=== PATIENT | male | born 1940 | race Caucasian/White ===

== ENCOUNTER 2017-04-16 18:08 | Outpatient (CLI) | payer MEDICARE | END 2017-04-16 18:09 | disposition home or self-care (01) | LOC: EMS 18:08 | PROVIDERS: ATTEND Surgery | DX: R31.9 Hematuria, unspecified (principal) | CPT/HCPCS: A0170; A0425; A0429 ==

== ENCOUNTER 2017-04-22 13:47 | Outpatient (CLI) | payer MEDICARE | END 2017-04-22 13:48 | disposition critical access hospital (66) | LOC: EMS 13:47 | PROVIDERS: ATTEND Surgery | DX: R06.02 Shortness of breath (principal); R42 Dizziness and giddiness; R53.83 Other fatigue; R19.7 Diarrhea, unspecified | CPT/HCPCS: A0425; A0429 ==

== ENCOUNTER 2017-04-22 14:54 | Inpatient (IN) | payer MEDICARE ==
--- NOTE | 2017-04-22 15:42 | ED Physician Documentation ---
PD HPI DYSPNEA - Stated complaint Stated Complaint: SOA - Chief complaint Chief Complaint: Resp - History obtained from History obtained from: Patient, Family - History of Present Illness Timing - onset: Other (feeling short of breath for the past few weeks.) Timing - onset during: Rest Timing - duration: Weeks Timing - details: Gradual onset Pain level max: 0 Pain level now: 0 Inciting event(s): Exercise (normally walks with a walker, but couldn't make it ajay the ramp with his walker today), Other (states has not been taking his medications) Improved by: Rest Worsened by: Exertion Associated symptoms: No: Fever, Cough, Hemoptysis, Wheezing, Chest pain / discomfort, Palpitations, Diaphoresis, Bilateral edema, Unilateral edema Similar symptoms before: Has not had sx before Recently seen: Not recently seen - Additional information Additional information: Recently moved from [place] to [place]. Has not been taking his home meds Review of Systems Ten Systems: 10 systems reviewed and negative Constitutional: denies: Fever, Chills Nose: denies: Rhinorrhea / runny nose, Congestion Throat: denies: Sore throat Cardiac: denies: Chest pain / pressure Respiratory: denies: Cough, Hemoptysis GI: denies: Abdominal Pain, Nausea, Vomiting, Diarrhea Skin: denies: Rash Musculoskeletal: denies: Neck pain, Back pain Neurologic: denies: Headache PD PAST MEDICAL HISTORY - Past Medical History Past Medical History: Yes Cardiovascular: Hypertension Endocrine/Autoimmune: Type 2 diabetes - Present Medications Home Medications: Ambulatory Orders Medication Instructions Recorded Confirmed Cyclobenzaprine [Flexeril] 1 tab PO .FREQ 04/22/17 04/22/17 Diclofenac Potassium [Cambia] 1 tab PO .Q 04/22/17 04/22/17 Escitalopram [Lexapro] 20 mg PO .FREQ 04/22/17 04/22/17 Finasteride 1 tab PO .Q 04/22/17 04/22/17 Lisinopril 1 tab PO .FREQ 04/22/17 04/22/17 Metformin HCl 1 tab PO .FREQ 04/22/17 04/22/17 Simvastatin 1 tab PO .FREQ 04/22/17 04/22/17 Terazosin [Hytrin] 2 mg PO .Q 04/22/17 04/22/17 diphenhydrAMINE [Benadryl] 1 tab PO .FREQ 04/22/17 04/22/17 - Allergies Allergies/Adverse Reactions: Allergies Allergy/AdvReac Type Severity Reaction Status Date / Time codeine Allergy Rash Verified 04/22/17 15:01 - Living Situation Living Situation: reports: With family Living Arrangement: reports: At home - Social History Does the pt smoke?: No Smoking Status: Never smoker Does the pt drink ETOH?: Yes Does the pt have substance abuse?: No - Family History Family history: reports: Non contributory PD ED PE NORMAL - Vitals Vital signs reviewed: Yes - General General: Alert and oriented X 3, No acute distress, Other (obese male) - HEENT HEENT: PERRL, Moist mucous membranes - Neck Neck: Supple, no meningeal sign - Cardiac Cardiac: RRR, Strong equal pulses - Respiratory Respiratory: No respiratory distress, Other (dimished BS bilaterally) - Abdomen Abdomen: Soft, Non tender, Other (protuberant abdomen) - Derm Derm: Warm and dry - Extremities Extremities: No calf tenderness / cord, Other (2+ B LE edema) - Neuro Neuro: Alert and oriented X 3 - Psych Psych: Normal mood, Normal affect Results - Vitals Vitals: Vital Signs - 24 hr 04/22/17 04/22/17 14:56 16:26 Temperature 36.0 C L Heart Rate 109 H 102 H Respiratory 20 18 Rate Blood Pressure 153/69 H 127/74 O2 Saturation 94 100 Oxygen O2 Source Room air - EKG (time done) 1511 Rate: Rate (enter#) (100) Rhythm: Sinus tachycardia Tamiment: Normal Intervals: Normal [place] QRS: Normal Ischemia: T wave inversion (V2-3) - Labs Labs: Laboratory Tests 04/22/17 04/22/17 04/22/17 17:10 17:10 17:10 WBC 11.6 H RBC 4.91 Hgb 15.0 Hct 45.6 MCV 92.9 MCH 30.6 MCHC 32.9 RDW 14.8 Plt Count 141 MPV 6.8 L Neut # 8.5 H Lymph # 2.0 [place] # 0.9 Eos # 0.1 Baso # 0.0 Absolute Nucleated RBC 0.01 Nucleated RBCs 0.1 PT INR APTT D-Dimer Sodium 137 Potassium 4.1 Chloride 101 Carbon Dioxide 28 Anion Gap 8.0 BUN 18 Creatinine 1.1 Estimated GFR (MDRD) 65 L Glucose 196 H Calcium 10.0 Total Bilirubin 0.8 AST 20 ALT 22 Alkaline Phosphatase 56 Total Creatine Kinase 30 Troponin I 0.31 B-Natriuretic Peptide Total Protein 7.3 Albumin 3.9 Globulin 3.4 Albumin/Globulin Ratio 1.1 Lipase 24 04/22/17 04/22/17 04/22/17 17:10 17:10 17:10 WBC RBC Hgb Hct MCV MCH MCHC RDW Plt Count MPV Neut # Lymph # [place] # Eos # Baso # Absolute Nucleated RBC Nucleated RBCs PT 13.5 H INR 1.2 APTT 34.0 H D-Dimer > 1050.0 H Sodium Potassium Chloride Carbon Dioxide Anion Gap BUN Creatinine Estimated GFR (MDRD) Glucose Calcium Total Bilirubin AST ALT Alkaline Phosphatase Total Creatine Kinase Troponin I B-Natriuretic Peptide 354 H Total Protein Albumin Globulin Albumin/Globulin Ratio Lipase - Rads (name of study) cxr Radiology: Prelim report reviewed, EMP read contemporaneously, See rad report ( Mild cardiomegaly. ) [place] Radiology: Prelim report reviewed, EMP read contemporaneously, See rad report ( extensive B PE with right heart strain) PD MEDICAL DECISION MAKING - ED course Complexity details: reviewed results, re-evaluated patient, considered differential, d/w patient, d/w family, d/w party plan sales consultant ([phone] - Dr. Flores ( hospitalist) who accepts.) ED course: Patient is a 76-year-old gentleman who has had increasingly difficult time caring for himself at home. He does use a walker at home, but has not been very mobile over the past few weeks. Also recently moved from [place]. Found to have a mildly elevated troponin as well as mildly elevated BNP. Concern raised for pulmonary embolus, therefore CT pulmonary angiogram was performed but shows extensive bilateral PEs with right heart strain. Started on a heparin drip. We will admit the patient for further evaluation and care. Discussed the case with the hospitalist who accepts. This document was made in part using voice recognition software. While efforts are made to proofread this document, sound alike and grammatical errors may occur. Departure - Departure Disposition: 66 [facility] DC/Xfer Clinical Impression: Pulmonary emboli Qualifiers: Pulmonary embolism type: other Chronicity: acute Acute cor pulmonale presence: with acute cor pulmonale Qualified Code(s): I26.09 - Other pulmonary embolism with acute cor pulmonale Condition: Good
--- NOTE | 2017-04-22 16:47 | XRAY Preliminary Report ---
Exam: XR Chest 1 View IMPRESSION: Mild cardiomegaly. [facility] SITE ID: [id number]
--- NOTE | 2017-04-22 16:52 | XRAY Report ---
EXAM: CHEST RADIOGRAPHY EXAM DATE: 04/22/2017 04:31 PM. CLINICAL HISTORY: Dyspnea. COMPARISON: None. TECHNIQUE: 1 view. FINDINGS: Lungs/Pleura: No focal opacities evident. No pleural effusion. No pneumothorax. Mediastinum: Mild cardiomegaly. No adenopathy. Other: Morbidly obese. IMPRESSION: Mild cardiomegaly. [facility] Referring Provider Line: [phone] SITE ID: [id number]
[2017-04-22 17:37] LABS: BASOPHILS % (AUTO) 0.4 %; EOSINOPHILS # (AUTO) 0.1 10^3/uL (0.0-0.7); EOSINOPHILS % (AUTO) 0.8 %; HCT - HEMATOCRIT 45.6 % (42.0-52.0); LYMPHOCYTES % (AUTO) 17.1 %; MEAN CORPUSCULAR HEMOGLOBIN 30.6 pg (27.0-31.0); MEAN CORPUSCULAR HGB CONC 32.9 g/dL (32.0-36.0); MEAN CORPUSCULAR VOLUME 92.9 fL (80.0-94.0); MEAN PLATELET VOLUME 6.8 fL (7.4-11.4); MONOCYTES # (AUTO) 0.9 10^3/uL (0.0-1.0); MONOCYTES % (AUTO) 8.1 %; NEUTROPHILS # (AUTO) 8.5 10^3/uL (1.5-6.6); NEUTROPHILS % (AUTO) 73.6 %; NUCLEATED RED BLOOD CELLS AUTO 0.1 /100WBC; RED BLOOD COUNT 4.91 10^6/uL (4.70-6.10); RED CELL DISTRIBUTION WIDTH 14.8 % (12.0-15.0); UNCORRECTED WHITE BLOOD COUNT 11.6 x10^3/uL; WHITE BLOOD COUNT 11.6 x10^3/uL (4.8-10.8)
[2017-04-22 17:47] LABS: ALBUMIN/GLOBULIN RATIO 1.1 (1.0-2.2); BILIRUBIN,TOTAL 0.8 mg/dL (0.2-1.0); CREATININE 1.1 mg/dL (0.6-1.2); POTASSIUM 4.1 mmol/L (3.5-5.0); TOTAL PROTEIN 7.3 g/dL (6.7-8.2)
[2017-04-22] MEDS ORDERED: IOPAMIDOL-300 100 ML VIAL IVP ONE (18:49)
[2017-04-22] MEDS ORDERED: HEPARIN 5,000 UNIT/ML VIAL IVP STA (18:57)
[2017-04-22] MEDS ORDERED: HEPARIN 25,000 UNITS/500 ML 500 ML IV STA (18:57)
[2017-04-22] MEDS ORDERED: HEPARIN 5,000 UNIT/ML VIAL ONE (19:04)
[2017-04-22] MEDS ORDERED: HEPARIN 25,000 UNITS/500 ML 500 ML IV ONE (19:05)
[2017-04-22 19:07] LABS: INR 1.2 (0.8-1.2); PT - PROTHROMBIN TIME 13.5 secs (9.9-12.6)
--- NOTE | 2017-04-22 19:20 | CT Preliminary Report ---
Exam: CT Chest Angio (PE) IMPRESSION: Extensive pulmonary emboli with elevated right cardiac pressures. [facility] The above critical findings were discussed with jenna Melendez by Dr. Edita Cervantes at 19:18 h rs on 04/22/17. SITE ID: [id number]
[2017-04-22] MEDS ORDERED: ZOLPIDEM 5 MG TABLET PO PRN (19:23)
[2017-04-22] MEDS ORDERED: SODIUM CHLORIDE FLUSH 0.9% 10 ML SYRINGE IVP PRN (19:23)
[2017-04-22] MEDS ORDERED: PROCHLORPERAZINE 10 MG/2 ML VIAL IVP PRN (19:23)
[2017-04-22] MEDS ORDERED: ONDANSETRON 4 MG/2 ML VIAL IVP PRN (19:23)
--- NOTE | 2017-04-22 19:36 | CT Report ---
EXAM: CT ANGIOGRAM CHEST EXAM DATE: 04/22/2017 06:50 p.m. CLINICAL HISTORY: Dyspnea. COMPARISON: None. TECHNIQUE: Routine helical imaging was performed through the chest in the pulmonary arterial phase. I V Contrast: 100 mL Isovue-300. Reconstructions: Coronal 3-D MIP reconstructions.Sagittal and coronal. In accordance with CT protocol optimization, one or more of the following dose reduction techniques w ere utilized for this exam: automated exposure control, adjustment of mA and/or KV based on patient s ize, or use of iterative reconstructive technique. FINDINGS: Pulmonary Arteries: Diagnostic quality: Adequate through the segmental arteries. Multiple occlusive and nonocclusive loba r, segmental and subsegmental filling defects throughout the pulmonary arterial systems bilaterally. Small left saddle embolus. Hcatg-vy-sfcy ventricular ratio is 1.0. Some flattening of the interventricular septum. Small amount of reflux into the inferior vena cava. Lungs/Pleura: No consolidation, nodules, or edema. No effusions or pneumothorax. Mediastinum: Normal. No cardiac enlargement or adenopathy. Thoracic Aorta: Unremarkable. Upper Abdomen: Unremarkable. Other: None. IMPRESSION: Extensive pulmonary emboli with elevated right cardiac pressures. [facility] The above critical findings were discussed with provider Dr. Melendez by Dr. Edita Cervantes at 19:18 hrs on 04/22/17. Referring Provider Line: [phone] SITE ID: [id number]
[2017-04-22 20:02] LABS: HEMOGLOBIN A1C 0.9 g/dL
[2017-04-22] MEDS: ENOXAPARIN 80 MG/0.8 ML SYRINGE SUBQ SCH (21:34)
[2017-04-22] MEDS: SODIUM CHLORIDE 0.9% 1,000 ML IV SCH (21:34)
[2017-04-22] MEDS: INSULIN ASPART 300 UNIT/3 ML PEN SUBQ SCH (21:34)
[2017-04-22] MEDS: SODIUM CHLORIDE FLUSH 0.9% 10 ML SYRINGE IVP SCH (21:35)
--- NOTE | 2017-04-22 21:44 | HISTORY & PHYSICAL EXAMINATION ---
Chief Complaint - Chief Complaint Chief Complaint: shortness of air, dizziness and fatigue History of Present Illness - Admitted From Admitted From:: emergency department - History Obtained From Records Reviewed: yes History obtained from: patient Exam Limitations: None - History of Present Illness HPI Comment/Other: Patient is a very pleasant 76-year-old gentleman with a past medical history significant for morbid obesity, diabetes, hypertension, hyperlipidemia, struct of sleep apnea on CPAP at night, BPH and history of skin cancer who presented to the emergency department with a chief complaint of fatigue, shortness of air with exertion and dizziness. The patient states that he just moved up to [facility] 3-1/2 weeks ago from [place]. He moved up here with his partner to take care of his partners mother. The patient states that they drove 1200 miles and slept in the car over the span of 3 days. The patient states that over the last several days he has been feeling more tired and sleepy throughout most of the day. He states that the last few days he's become increasingly short of air when walking around the house. He also states that when he is walking he feels dizzy and continues to have fatigue. The patient denied any chest pain however on examination when he was having to take a deep breath he did admit to some pain with deep breathing. The patient otherwise denies any fevers, cough, chest pain with exertion, nausea, vomiting, diarrhea, or any focal neurologic deficits. The patient states that since moving to [facility] he has been living a very sedentary lifestyle. He states that he has just been too fatigued and has had too much weakness to move around very much. He states that most of the day he's just been sitting in his chair. The patient states that he uses a walker and cane at home to get around. He states that his partner left to get some more stuff from [place] just a few days ago and that he is currently alone with his partner's mother. He states that his sisters who live in [facility] have been talking to him about possibly going to an assisted living. On presentation to the emergency department the patient was tachycardic with heart rate of 109 and was tachypneic at rest with a resting O2 sat of 94%. The patient became quite fatigued and short of breath with any kind of exertion even sitting up in bed. The patient's lab work was unremarkable aside from a d- dimer of greater than 1050. Given the patient's presentation with worsening shortness of breath over the last 2 days, tachycardia, elevated d-dimer and recent history of long trip and sedentary lifestyle the patient underwent a CT angiogram of the thorax. The CT revealed extensive pulmonary emboli with elevated right cardiac pressures. Given the extent of the pulmonary emboli and the fact that the patient had such a decrease in his exercise tolerance he was admitted to the hospital for treatment of PE. In the emergency room the patient was started on a heparin drip. Review of Systems - Constitutional Constitutional: reports: Fatigue, Weakness. denies: Fever, Chills, Malaise, Poor appetite, Diaphoresis, Night sweats, Weight gain, Weight loss - Eyes Eyes: denies: Pain, Irritation, Amaurosis, Blurred vision, Spots in vision, Field loss, Vision loss, Dipolpia - Ears, Nose & Throat Ears, Nose & Throat: denies: Ear pain, Hearing loss, Hearing aids, Tinnitus, Vertigo, Nasal pain, Nasal discharge, Nosebleeds, Nasal obstruction, Nasal congestion, Postnasal drainage, Sore throat, Hoarseness - Cardiovascular Cariovascular: reports: Lightheadedness, Exertional dyspnea, Decr. exercise tolerance. denies: Irregular heart rate, Palpitations, Chest pain, Edema, Syncope, Orthopnea - Respiratory Respiratory: reports: SOB with exertion, Pleuritic pain. denies: Cough, Sputum production, Wheezing, Hemoptysis, Orthopnea, SOB at rest - Gastrointestinal Gastrointestinal: denies: Abdominal pain, Abdominal distention, Constipation, Diarrhea, Change in bowel habits, Black stools, Bloody stools, Nausea, Vomiting , Clif blood emesis, Coffee grounds emesis, Poor appetite - Genitourinary Genitourinary: denies: Dysuria, Frequency, Urgency, Hematuria, Incontinence, Nocturia - Musculoskeletal Musculoskeletal: reports: Back pain. denies: Muscle pain, Muscle aches, Stiffness, Limited range of motion, Muscle weakness, Joint pain, Joint swelling - Integumentary Integumentary: reports: Lesions (abd wall, bilateral LE), Dryness (LEs). denies : Rash, Pruritis, Nail changes, Hair changes - Neurological Neurological: reports: General weakness, Dizziness. denies: Focal weakness, Headache, Numbness, Memory problems, Seizures, Slurred speech - Psychiatric Psychiatric: denies: Depression, Anxiety - Endocrine Endocrine: denies: Polyuria, Polydypsia, Polyphagia, Intolerance to cold, Intolerance to heat - Hematologic/Lymphatic Hematologic/Lymphatic: denies: Anemia, Lymphadenopathy, Bleeding tendencies History - Past Medical History Cardiovascular: reports: Hypertension, High cholesterol Respiratory: reports: None Neuro: reports: None Endocrine/Autoimmune: reports: Type 2 diabetes GI: reports: None : reports: Kidney stones, Other HEENT: reports: None Psych: reports: Panic attacks Musculoskeletal: reports: Osteoarthritis Derm: reports: None Other Past Medical History: 1. Diabetes. 2. Hypertension. 3. Hyperlipidemia. 4. Obstructive sleep apnea on CPAP. 5. Morbid obesity. 6. Skin cancer status post excision. 7. BPH - Past Surgical History General: reports: Appendectomy Derm: reports: Skin cancer surgery - Family & Social History Family History: Mother: (old age), Father: , Sister: Diabetes, Type 2, Brother: Diabetes, Type 2, Other family: Cancer (son of brain tumor ) Living arrangement: At home Living Situation: Other Social History Notes: The patient states these are originally from [place], [place]. He is but is currently in a relationship. He and his partner have been living in [place] and just moved back to [facility] 3 -1/2 weeks ago. The patient had been living in [place] since June 2003 he has moved back to help his partner take care of the partners elderly mother with dementia. He has 4 dogs and one cat who lives with them in the house. The patient had 2 children his son unfortunately of a brain tumor. The patient is retired [employer] and worked for [employer] for many years before he retired. The patient used to smoke one pack a day for 20 years but has quit many years ago. The patient does enjoy a couple of cocktails a night. He denies any illicit drug use. - Substance History Use: Uses substance without health or social issues: NONE Abuse: Recurrent use of substance despite neg consequences: NONE Dependence: Experiences withdrawal or developed tolerances: NONE - POLST Patient has POLST: No POLST Status: Full Code Meds/Allgy - Home Medications Home Medications: Ambulatory Orders Medication Instructions Recorded Confirmed Cyclobenzaprine [Flexeril] 1 tab PO .FREQ 04/22/17 04/22/17 Diclofenac Potassium [Cambia] 1 tab PO .FREQ 04/22/17 04/22/17 Escitalopram [Lexapro] 20 mg PO .FREQ 04/22/17 04/22/17 Finasteride 1 tab PO .FREQ 04/22/17 04/22/17 Lisinopril 1 tab PO .FREQ 04/22/17 04/22/17 Metformin HCl 1 tab PO .FREQ 04/22/17 04/22/17 Simvastatin 1 tab PO .FREQ 04/22/17 04/22/17 Terazosin [Hytrin] 2 mg PO .FREQ 04/22/17 04/22/17 diphenhydrAMINE [Benadryl] 1 tab PO .FREQ 04/22/17 04/22/17 - Allergies Allergies/Adverse Reactions: Allergies Allergy/AdvReac Type Severity Reaction Status Date / Time codeine Allergy Rash Verified 04/22/17 15:01 Exam - Vital Signs Reviewed Vital Signs: Yes - Physical Exam General Appearance: positive: Alert, Mild distress, Other (Morbidly obese complaining of back pain and get short of breath with exertion even in the bed.) Eyes Bilateral: positive: Normal inspection, PERRL, EOMI, No lid inflammation, Conjunctivae nml, No scleral icterus ENT: positive: ENT inspection nml, Pharynx nml, No signs of dehydration. negative: Purulent nasal drainage, Pharyngeal erythema, Oral lesions Neck: positive: Nml inspection, Thyroid nml, No JVD, Trachea midline. negative : Thyromegaly, Lymphadenopathy (R), Lymphadenopathy (L) Respiratory: positive: Chest non-tender, Rhonchi (bilateral), Other (Non labored at rest but gets tachypnic with minimal exertion) Cardiovascular: positive: No murmur, No gallop, Tachycardia Peripheral Pulses: positive: 2+ Abdomen: positive: Non-tender, No organomegaly, Nml bowel sounds, Other (Large abdomen, lesion on abdominal wall from skin excision). negative: Guarding, Rebound Back: positive: Nml inspection. negative: CVA tenderness (R), CVA tenderness (L ) Skin: positive: Dry, Other (Scarring on abd wall from skin excision. Bilateral lower extremity hyperpigementation from chronic venous stasis) Extremities: positive: Non-tender, Full ROM, Pedal edema Neurologic/Psychiatric: positive: Oriented x3, CN's nml (2-12), Motor nml, Sensation nml, Mood/affect nml Conclusion/Plan - Problem List (1) Acute saddle pulmonary embolism Conclusion/Plan: The patient presented with shortness of air with exertion for the past 2 days, dizziness with ambulation and fatigue. On presentation the patient had tachycardia, tachypnea with any exertion and an elevated d-dimer. Patient had been on a recent trip from [place] to [facility] 1200 miles in a car with minimal stops or ambulating. He is also very sedentary at home. CT angiogram of the thorax revealed extensive pulmonary emboli in lobar, segmental and subsegmental arteries bilaterally. With a small left sagittal embolus. There was also evidence of right heart strain on CT. Plan: Patient initially started on heparin drip in the ER Will stop heparin drip and start on Lovenox 1 mg per kilogram subcutaneous twice a day and Coumadin We will get echocardiogram in the morning Oxygen as needed O2 walk test Monitor on telemetry Qualifiers: Acute cor pulmonale presence: without acute cor pulmonale Qualified Code(s) : I26.92 - Saddle embolus of pulmonary artery without acute cor pulmonale (2) Elevated troponin Conclusion/Plan: Patient's troponin was mildly elevated at 0.31 this is likely due to strain on the heart from extensive pulmonary embolism with left saddle embolism and right heart strain. EKG shows S1Q3T3 consistent with PE but no IRIS Will monitor patient on tele Echo in the morning (3) Diabetes Conclusion/Plan: Patient on metformin at home with hemoglobin A1c of 7.3. On presentation patient's hyperglycemic with glucose of [address] on sliding scale insulin while hospitalized Diabetic diet Glucose checks a.c. and at bedtime Qualifiers: Diabetes mellitus type: type 2 (4) Hypertension Conclusion/Plan: blood pressure mildly elevated on presentation continue home meds Monitor blood pressure Qualifiers: Hypertension type: essential hypertension Qualified Code(s): I10 - Essential (primary) hypertension (5) SARMAD on CPAP Conclusion/Plan: on CPAP at home Patient did not bring CPAP machine Patient will get daughter to bring CPAP tomorrow - Lab Results Lab results reviewed: Yes Fish Bones: 04/22/17 17:10 04/22/17 17:10 - Diagnostic Imaging Results Diagnostic Imaging Results: positive: Final report reviewed Diagnostic Imaging Results Comments: CT angiogram chest Impression: Multiple occlusive and nonocclusive lobar, segmental and subsegmental filling defects throughout the pulmonary arterial systems bilaterally. Small left sagittal embolus. Right to left ventricular ratio is 1.0. Some flattening of the intraventricular septum. Small amount of reflux into the inferior vena cava. - EKG Results EKG Interpreted Independently: Yes EKG Comparison: Other (S1 Q3 T3) Issues/Core Measures - Anticipated LOS Anticipated Stay Length: 2 or more midnights - DVT/VTE - Prophylaxis Not Ordered - Medical Reason: Contraindicated (Presented with PE could have DVTs )
[2017-04-22] MEDS: ACETAMINOPHEN 325 MG TABLET PO PRN (23:45)
[2017-04-23 02:09] LABS: BILIRUBIN,URINE NEGATIVE (NEGATIVE); PH,URINE 5.5 PH (5.0-7.5)
[2017-04-23 02:11] LABS: UA w/ MICROSCOPIC CHARGE YES
[2017-04-23 02:15] LABS: WBC,URINE 0-3 /HPF (0-3)
[2017-04-23 02:16] LABS: UR CULTURE IF IND NOT INDICATED
[2017-04-23 05:52] LABS: BASOPHILS # (AUTO) 0.1 10^3/uL (0.0-0.1); BASOPHILS % (AUTO) 0.7 %; EOSINOPHILS # (AUTO) 0.2 10^3/uL (0.0-0.7); EOSINOPHILS % (AUTO) 2.3 %; HCT - HEMATOCRIT 41.7 % (42.0-52.0); HGB - HEMOGLOBIN 14.1 g/dL (14.0-18.0); LYMPHOCYTES # (AUTO) 2.5 10^3/uL (1.5-3.5); LYMPHOCYTES % (AUTO) 27.3 %; MEAN CORPUSCULAR HEMOGLOBIN 31.2 pg (27.0-31.0); MEAN CORPUSCULAR HGB CONC 33.7 g/dL (32.0-36.0); MEAN CORPUSCULAR VOLUME 92.7 fL (80.0-94.0); MEAN PLATELET VOLUME 6.7 fL (7.4-11.4); MONOCYTES # (AUTO) 0.8 10^3/uL (0.0-1.0); MONOCYTES % (AUTO) 9.1 %; NEUTROPHILS # (AUTO) 5.6 10^3/uL (1.5-6.6); NEUTROPHILS % (AUTO) 60.6 %; RED CELL DISTRIBUTION WIDTH 15.1 % (12.0-15.0); UNCORRECTED WHITE BLOOD COUNT 9.2 x10^3/uL; WHITE BLOOD COUNT 9.2 x10^3/uL (4.8-10.8)
[2017-04-23 05:55] LABS: INR 1.2 (0.8-1.2); PT - PROTHROMBIN TIME 13.6 secs (9.9-12.6)
[2017-04-23 06:03] LABS: ALBUMIN/GLOBULIN RATIO 1.2 (1.0-2.2); BILIRUBIN,TOTAL 0.7 mg/dL (0.2-1.0); CALCIUM 9.4 mg/dL (8.5-10.3); MAGNESIUM 1.9 mg/dL (1.7-2.8); PHOSPHORUS 3.5 mg/dL (2.5-4.6); POTASSIUM 3.9 mmol/L (3.5-5.0); TOTAL PROTEIN 6.5 g/dL (6.7-8.2)
[2017-04-23] MEDS: SODIUM CHLORIDE FLUSH 0.9% 10 ML SYRINGE IVP SCH ×3 (06:08→21:30)
[2017-04-23] MEDS: PANTOPRAZOLE 40 MG TABLET PO SCH (06:08)
[2017-04-23] MEDS: ESCITALOPRAM 10 MG TABLET PO SCH (08:55)
[2017-04-23] MEDS: LISINOPRIL 20 MG TABLET PO SCH (08:55)
[2017-04-23] MEDS: FINASTERIDE 5 MG TABLET PO SCH (08:55)
[2017-04-23] MEDS: INSULIN ASPART 300 UNIT/3 ML PEN SUBQ SCH ×4 (08:55→21:29)
[2017-04-23] MEDS: ATORVASTATIN 10 MG TABLET PO SCH (08:55)
--- NOTE | 2017-04-23 08:58 | PROVIDER PROGRESS NOTE ---
Assessment/Plan - Problem List (1) Acute saddle pulmonary embolism Qualifiers: Acute cor pulmonale presence: without acute cor pulmonale Qualified Code(s) : I26.92 - Saddle embolus of pulmonary artery without acute cor pulmonale Assessment/Plan: # Acute Pulmonary Embolism, provoked PE due to long car ride and sedentary. presented with sob, feeling dizzy and fatigue. Ct with bilateral PE and evidence of right heart strain, HD stable. Pt started briefly on heparin in the ER, switched to lovenox on admit. Plan for oral AC for at least 6 mo. Will ask case assistant to determine if pts insurance will cover a NOAC or start coumadin today. Explained to pt the risk and benefits of AC tx and need for close monitoring of coumadin rx. He agrees with plan. Echo today and repeat INR in am. Will need to arrange fu with PCP prior to dc. # Elevated trop suspect this is due to right heart strain from PE. pt has no chest pain. # Diabetes type 2 unknown complications hold metformin due to CT with contrast. Continue SSI and diabetic diet. # SARMAD continue CPAP # Htn continue home medication (2) Hypertension Qualifiers: Hypertension type: essential hypertension Qualified Code(s): I10 - Essential (primary) hypertension - Current Meds Current Meds: Current Medications Generic Name Dose Route Start Last Admin Trade Name Freq PRN Reason Stop Dose Admin Acetaminophen 650 mg 04/22/17 19:23 04/22/17 23:45 Tylenol PO 650 mg Q4HR PRN Administration Pain 1 to 4 Enoxaparin Sodium 160 mg 04/22/17 21:00 04/22/17 21:34 Lovenox SUBQ 160 mg BID ANNITA Administration Sodium Chloride 1,000 mls @ 100 mls/hr 04/22/17 20:00 04/22/17 21:34 Normal Saline 0.9% IV 100 mls/hr .Q10H ANNITA Administration Insulin Aspart 1 - 5 unit 04/22/17 21:00 04/22/17 21:34 Novolog SUBQ 2 unit 0800,1200,1700,2100 ANNITA Administration Protocol Pantoprazole Sodium 40 mg 04/23/17 07:00 04/23/17 06:08 Protonix PO 40 mg QDAC ANNITA Administration Sodium Chloride 10 ml 04/22/17 22:00 04/23/17 06:08 Normal Saline Flush 0.9% IVP 10 ml Q8HR ANNITA Administration Zolpidem Tartrate 5 mg 04/22/17 19:23 04/22/17 23:45 Ambien PO 5 mg QPM PRN Administration Insomnia - Lab Result Lab results reviewed: Yes Fish Bone Diagrams: 04/23/17 05:40 04/23/17 05:40 Subjective - Subjective Patient Reports: Other (pt continues to have sob, was incontinent of stool this am, states he is intermittently incontinent at home. Lives with his male partner and his mother. States his partner is able to help him at home. Appetite good, no n/v.) Objective Vital Signs: Vital Signs - 24 hr 04/22/17 04/22/17 04/23/17 20:50 23:41 05:20 Temperature 36.3 C L 36.7 C 36.6 C Heart Rate [ 102 H 96 90 Brachial] Respiratory 18 22 18 Rate Blood Pressure 147/91 H 137/91 H [Left Brachial artery] Blood Pressure 136/93 H [Left Radial artery] Blood Pressure 140/89 H [Right Brachial artery] O2 Saturation 98 97 97 04/23/17 04/23/17 06:01 08:29 Temperature 36.1 C L 37.1 C Heart Rate [ 88 93 Brachial] Respiratory 20 18 Rate Blood Pressure [Left Brachial artery] Blood Pressure 134/96 H [Left Radial artery] Blood Pressure 134/91 H [Right Brachial artery] O2 Saturation 97 95 Oxygen O2 Source Nasal cannula I&O (Last 24 Hrs): Intake and Output Totals x24h 04/21/17 04/22/17 04/23/17 23:59 23:59 23:59 Intake Total 260 1354 Output Total 100 Balance 260 1254 General: Other (Gen - obese male, NAD laying in bed CV Tachy regular, no mrg Lungs CTA b non labored, no wheeze or rhonchi Abd obese, sntnd Ext non tender , no edema) - Results Results: Laboratory Results WBC 9.2 x10^3/uL (4.8-10.8) 04/23/17 05:40 RBC 4.50 10^6/uL (4.70-6.10) L 04/23/17 05:40 Hgb 14.1 g/dL (14.0-18.0) 04/23/17 05:40 Hct 41.7 % (42.0-52.0) L 04/23/17 05:40 MCV 92.7 fL (80.0-94.0) 04/23/17 05:40 MCH 31.2 pg (27.0-31.0) H 04/23/17 05:40 MCHC 33.7 g/dL (32.0-36.0) 04/23/17 05:40 RDW 15.1 % (12.0-15.0) H 04/23/17 05:40 Plt Count 126 10^3/uL (130-450) L 04/23/17 05:40 MPV 6.7 fL (7.4-11.4) L 04/23/17 05:40 Neut # 5.6 10^3/uL (1.5-6.6) 04/23/17 05:40 Lymph # 2.5 10^3/uL (1.5-3.5) 04/23/17 05:40 [place] # 0.8 10^3/uL (0.0-1.0) 04/23/17 05:40 Eos # 0.2 10^3/uL (0.0-0.7) 04/23/17 05:40 Baso # 0.1 10^3/uL (0.0-0.1) 04/23/17 05:40 Absolute Nucleated RBC 0.00 x10^3/uL 04/23/17 05:40 Nucleated RBCs 0.0 /100WBC 04/23/17 05:40 PT 13.6 secs (9.9-12.6) H 04/23/17 05:40 INR 1.2 (0.8-1.2) 04/23/17 05:40 APTT 34.0 secs (24.9-33.3) H 04/22/17 17:10 D-Dimer > 1050.0 ng/mL (200.0-255.0) H 04/22/17 17:10 Sodium 137 mmol/L (135-145) 04/23/17 05:40 Potassium 3.9 mmol/L (3.5-5.0) 04/23/17 05:40 Chloride 104 mmol/L (101-111) 04/23/17 05:40 Carbon Dioxide 25 mmol/L (21-32) 04/23/17 05:40 Anion Gap 8.0 (6-13) 04/23/17 05:40 BUN 19 mg/dL (6-20) 04/23/17 05:40 Creatinine 1.0 mg/dL (0.6-1.2) 04/23/17 05:40 Estimated GFR (MDRD) 73 (>89) L 04/23/17 05:40 Glucose 163 mg/dL (70-100) H 04/23/17 05:40 Glycated Hemoglobin 7.3 % (4.6-6.2) H 04/22/17 17:10 Estim Average Glucose 163 (70-100) H 04/22/17 17:10 Calcium 9.4 mg/dL (8.5-10.3) 04/23/17 05:40 Phosphorus 3.5 mg/dL (2.5-4.6) 04/23/17 05:40 Magnesium 1.9 mg/dL (1.7-2.8) 04/23/17 05:40 Total Bilirubin 0.7 mg/dL (0.2-1.0) 04/23/17 05:40 AST 16 IU/L (10-42) 04/23/17 05:40 ALT 18 IU/L (10-60) 04/23/17 05:40 Alkaline Phosphatase 51 IU/L (42-121) 04/23/17 05:40 Total Creatine Kinase 30 IU/L (22-269) 04/22/17 17:10 Troponin I 0.31 ng/mL (<0.49) 04/22/17 17:10 B-Natriuretic Peptide 354 pg/mL (5-100) H 04/22/17 17:10 Total Protein 6.5 g/dL (6.7-8.2) L 04/23/17 05:40 Albumin 3.6 g/dL (3.2-5.5) 04/23/17 05:40 Globulin 2.9 g/dL (2.1-4.2) 04/23/17 05:40 Albumin/Globulin Ratio 1.2 (1.0-2.2) 04/23/17 05:40 Lipase 24 U/L (22-51) 04/22/17 17:10 Urine Color YELLOW 04/23/17 01:26 Urine Clarity CLEAR (CLEAR) 04/23/17 01:26 Urine pH 5.5 PH (5.0-7.5) 04/23/17 01:26 Ur Specific [place] 1.020 (1.002-1.030) 04/23/17 01:26 Urine Protein 100 mg/dL (NEGATIVE) H 04/23/17 01:26 Urine Glucose (UA) NEGATIVE mg/dL (NEGATIVE) 04/23/17 01:26 Urine Ketones TRACE mg/dL (NEGATIVE) 04/23/17 01:26 Urine Occult Blood MODERATE (NEGATIVE) H 04/23/17 01:26 Urine Nitrite NEGATIVE (NEGATIVE) 04/23/17 01:26 Urine Bilirubin NEGATIVE (NEGATIVE) 04/23/17 01:26 Urine Urobilinogen 0.2 (NORMAL) E.U./dL (NORMAL) 04/23/17 01:26 Ur Leukocyte Esterase NEGATIVE (NEGATIVE) 04/23/17 01:26 Urine RBC 6-10 /HPF (0-5) H 04/23/17 01:26 Urine WBC 0-3 /HPF (0-3) 04/23/17 01:26 Ur Squamous Epith Cells MOD Squamous (<= Few) H 04/23/17 01:26 Urine Bacteria Few /HPF (None Seen) 04/23/17 01:26 Urine Casts 0-2 Hyaline Casts /LPF 04/23/17 01:26 Urine Mucus Few Strands 04/23/17 01:26 Ur Microscopic Review INDICATED 04/23/17 01:26 Urine Culture Comments NOT INDICATED 04/23/17 01:26
[2017-04-23] MEDS ORDERED: NON FORMULARY MED (Simvastatin [Simvastatin] 20 MG) PO SCH (09:00)
[2017-04-23] MEDS ORDERED: metFORMIN 850 MG TABLET PO SCH (09:00)
[2017-04-23] MEDS: SODIUM CHLORIDE 0.9% 1,000 ML IV SCH ×2 (09:07→17:10)
[2017-04-23] MEDS: POLYETHYLENE GLYCOL 3350 17 GM PACKET PO SCH (09:07)
[2017-04-23] MEDS: ENOXAPARIN 80 MG/0.8 ML SYRINGE SUBQ SCH (09:24)
[2017-04-23] MEDS: ACETAMINOPHEN 325 MG TABLET PO PRN ×2 (10:08→19:34)
[2017-04-23] MEDS: CYCLOBENZAPRINE 10 MG TABLET PO PRN ×2 (10:08→19:34)
[2017-04-23] MEDS ORDERED: WARFARIN 5 MG TABLET PO SCH (14:00)
[2017-04-23] MEDS: RIVAROXABAN 15 MG TABLET PO SCH (17:03)
[2017-04-23] MEDS: TERAZOSIN 1 MG CAPSULE PO SCH (21:29)
[2017-04-23] MEDS: TERAZOSIN 5 MG CAPSULE PO SCH (21:29)
[2017-04-24] MEDS: ACETAMINOPHEN 325 MG TABLET PO PRN ×2 (00:55→09:09)
[2017-04-24] MEDS: SODIUM CHLORIDE 0.9% 1,000 ML IV SCH ×2 (02:40→12:34)
[2017-04-24] MEDS: PANTOPRAZOLE 40 MG TABLET PO SCH (06:05)
[2017-04-24] MEDS: SODIUM CHLORIDE FLUSH 0.9% 10 ML SYRINGE IVP SCH ×3 (06:05→21:03)
[2017-04-24 06:18] LABS: BASOPHILS % (AUTO) 0.5 %; EOSINOPHILS # (AUTO) 0.2 10^3/uL (0.0-0.7); EOSINOPHILS % (AUTO) 2.5 %; HCT - HEMATOCRIT 38.7 % (42.0-52.0); HGB - HEMOGLOBIN 12.8 g/dL (14.0-18.0); LYMPHOCYTES # (AUTO) 1.9 10^3/uL (1.5-3.5); LYMPHOCYTES % (AUTO) 28.2 %; MEAN CORPUSCULAR HEMOGLOBIN 30.8 pg (27.0-31.0); MEAN CORPUSCULAR HGB CONC 33.1 g/dL (32.0-36.0); MEAN CORPUSCULAR VOLUME 93.1 fL (80.0-94.0); MONOCYTES # (AUTO) 0.6 10^3/uL (0.0-1.0); MONOCYTES % (AUTO) 8.8 %; NEUTROPHILS # (AUTO) 4.1 10^3/uL (1.5-6.6); RED BLOOD COUNT 4.16 10^6/uL (4.70-6.10); UNCORRECTED WHITE BLOOD COUNT 6.8 x10^3/uL; WHITE BLOOD COUNT 6.8 x10^3/uL (4.8-10.8)
[2017-04-24 06:20] LABS: INR 1.5 (0.8-1.2); PT - PROTHROMBIN TIME 17.1 secs (9.9-12.6)
[2017-04-24 06:33] LABS: ALBUMIN/GLOBULIN RATIO 1.2 (1.0-2.2); BILIRUBIN,TOTAL 0.4 mg/dL (0.2-1.0); CALCIUM 9.2 mg/dL (8.5-10.3); CREATININE 1.1 mg/dL (0.6-1.2); MAGNESIUM 1.9 mg/dL (1.7-2.8); PHOSPHORUS 3.5 mg/dL (2.5-4.6); POTASSIUM 4.1 mmol/L (3.5-5.0); TOTAL PROTEIN 6.2 g/dL (6.7-8.2)
[2017-04-24] MEDS: INSULIN ASPART 300 UNIT/3 ML PEN SUBQ SCH ×4 (09:07→21:00)
[2017-04-24] MEDS: ESCITALOPRAM 10 MG TABLET PO SCH (09:08)
[2017-04-24] MEDS: LISINOPRIL 20 MG TABLET PO SCH (09:08)
[2017-04-24] MEDS: CYCLOBENZAPRINE 10 MG TABLET PO PRN (09:09)
[2017-04-24] MEDS: ATORVASTATIN 10 MG TABLET PO SCH (09:09)
[2017-04-24] MEDS: FINASTERIDE 5 MG TABLET PO SCH (09:09)
[2017-04-24] MEDS: POLYETHYLENE GLYCOL 3350 17 GM PACKET PO SCH (09:09)
[2017-04-24] MEDS: RIVAROXABAN 15 MG TABLET PO SCH ×2 (09:09→17:06)
--- NOTE | 2017-04-24 14:28 | PROVIDER PROGRESS NOTE ---
Assessment/Plan - Problem List (1) Acute saddle pulmonary embolism Qualifiers: Acute cor pulmonale presence: without acute cor pulmonale Qualified Code(s) : I26.92 - Saddle embolus of pulmonary artery without acute cor pulmonale Assessment/Plan: (1) Acute saddle pulmonary embolism # Acute Pulmonary Embolism, provoked PE due to long car ride and sedentary. presented with sob, feeling dizzy and fatigue. Ct with bilateral PE and evidence of right heart strain, HD stable. Pt started briefly on heparin in the ER, switched to lovenox on admit. started xarelto 04/23. more sob and wheezing this morning, he is not able to get his CPAP machine from home. Sats okay, but will monitor one more night in the hospital. Low threshold to start steroids, although pt diabetic / obese and only on metformin. # Elevated trop suspect this is due to right heart strain from PE. pt has no chest pain. # Diabetes type 2 unknown complications hold metformin due to CT with contrast. Continue SSI and diabetic diet. Will add lantus 8 units hs tonight # SARMAD pt uses CPAP, doesn't have anyone to bring it in. He will try to arrange that someone brings it in. # Htn continue home medication # Morbid obesity. BMI 49. Encourage wt reduction - Current Meds Current Meds: Current Medications Generic Name Dose Route Start Last Admin Trade Name Freq PRN Reason Stop Dose Admin Acetaminophen 650 mg 04/22/17 19:23 04/24/17 09:09 Tylenol PO 650 mg Q4HR PRN Administration Pain 1 to 4 Atorvastatin Calcium 10 mg 04/23/17 09:00 04/24/17 09:09 Lipitor PO 10 mg DAILY ANNITA Administration Cyclobenzaprine HCl 10 mg 04/22/17 19:19 04/24/17 09:09 Flexeril PO 10 mg TID PRN Administration Spasms Escitalopram Oxalate 20 mg 04/23/17 09:00 04/24/17 09:08 Lexapro PO 20 mg DAILY ANNITA Administration Finasteride 5 mg 04/23/17 09:00 04/24/17 09:09 Proscar PO 5 mg DAILY ANNITA Administration Sodium Chloride 1,000 mls @ 100 mls/hr 04/22/17 20:00 04/24/17 12:34 Normal Saline 0.9% IV 100 mls/hr .Q10H ANNITA Administration Insulin Aspart 1 - 5 unit 04/22/17 21:00 04/24/17 11:44 Novolog SUBQ 3 unit 0800,1200,1700,2100 ANNITA Administration Protocol Lisinopril 40 mg 04/23/17 09:00 04/24/17 09:08 Zestril PO 40 mg DAILY ANNITA Administration Pantoprazole Sodium 40 mg 04/23/17 07:00 04/24/17 06:05 Protonix PO 40 mg QDAC ANNITA Administration Polyethylene Glycol 17 gm 04/23/17 09:00 04/24/17 09:09 Miralax PO Not Given DAILY ANNITA Rivaroxaban 15 mg 04/23/17 17:00 04/24/17 09:09 Xarelto PO 15 mg BIDWM ANNITA Administration Sodium Chloride 10 ml 04/22/17 22:00 04/24/17 14:06 Normal Saline Flush 0.9% IVP Not Given Q8HR ANNITA Terazosin HCl 5 mg 04/23/17 21:00 04/23/17 21:29 Hytrin PO 5 mg QPM ANNITA Administration Terazosin HCl 1 mg 04/23/17 21:00 04/23/17 21:29 Hytrin PO 1 mg QPM ANNITA Administration Zolpidem Tartrate 5 mg 04/22/17 19:23 04/22/17 23:45 Ambien PO 5 mg QPM PRN Administration Insomnia - Lab Result Lab results reviewed: Yes Fish Bone Diagrams: 04/24/17 05:42 04/24/17 05:42 - Additional Planning My Orders: My Active Orders 04/23/17 17:00 Rivaroxaban [Xarelto] 15 mg PO BIDWM 04/24/17 09:26 Albuterol 2.5 mg INH RTQ4H PRN 04/24/17 09:27 Nebulizer/MDI Tx. [RC] QID Resp Teach Nebulizer/MDI [RC] .ONCE 04/24/17 21:00 Insulin Glargine [Lantus Solostar] 8 unit SUBQ QPM 04/25/17 05:00 Chem 8 [BMP - BASIC METABOLIC PANEL] [CHEM] DAILYLAB Subjective - Subjective Patient Reports: Shortness of Breath, Other (c/o wheezing and mild difficutly breathing. not using cpap because he has no one to bring it in.) Objective Vital Signs: Vital Signs - 24 hr 04/23/17 04/23/17 04/23/17 14:30 15:30 22:00 Temperature 36.7 C 36.7 C Heart Rate [ 92 Activity] Heart Rate [ 89 96 Brachial] Respiratory 16 16 Rate Blood Pressure 130/86 H [Activity] Blood Pressure 122/87 H 140/87 H [Left Radial artery] Blood Pressure [Right Brachial artery] O2 Saturation 95 94 04/24/17 04/24/17 00:47 08:00 Temperature 37.0 C 36.1 C L Heart Rate [ Activity] Heart Rate [ 92 93 Brachial] Respiratory 18 20 Rate Blood Pressure [Activity] Blood Pressure 119/73 [Left Radial artery] Blood Pressure 130/78 [Right Brachial artery] O2 Saturation 98 95 Oxygen O2 Source Room air I&O (Last 24 Hrs): Intake and Output Totals x24h 04/22/17 04/23/17 04/24/17 23:59 23:59 23:59 Intake Total 260 3316 2830 Output Total 300 600 Balance 260 3016 2230 General: Alert (appears uncomfortable) Cardiovascular: Regular rate, No murmurs Respiratory: Chest non-tender, Wheezes (audible wheeze, speaking full sentences. looks uncomfortable.) Abdomen: Normal bowel sounds, Soft, No tenderness (obese) Extremities: No edema, No tenderness/swelling - Results Results: Laboratory Results WBC 6.8 x10^3/uL (4.8-10.8) 04/24/17 05:42 RBC 4.16 10^6/uL (4.70-6.10) L 04/24/17 05:42 Hgb 12.8 g/dL (14.0-18.0) L 04/24/17 05:42 Hct 38.7 % (42.0-52.0) L 04/24/17 05:42 MCV 93.1 fL (80.0-94.0) 04/24/17 05:42 MCH 30.8 pg (27.0-31.0) 04/24/17 05:42 MCHC 33.1 g/dL (32.0-36.0) 04/24/17 05:42 RDW 15.0 % (12.0-15.0) 04/24/17 05:42 Plt Count 132 10^3/uL (130-450) 04/24/17 05:42 MPV 7.0 fL (7.4-11.4) L 04/24/17 05:42 Neut # 4.1 10^3/uL (1.5-6.6) 04/24/17 05:42 Lymph # 1.9 10^3/uL (1.5-3.5) 04/24/17 05:42 [place] # 0.6 10^3/uL (0.0-1.0) 04/24/17 05:42 Eos # 0.2 10^3/uL (0.0-0.7) 04/24/17 05:42 Baso # 0.0 10^3/uL (0.0-0.1) 04/24/17 05:42 Absolute Nucleated RBC 0.00 x10^3/uL 04/24/17 05:42 Nucleated RBCs 0.0 /100WBC 04/24/17 05:42 PT 17.1 secs (9.9-12.6) H 04/24/17 05:42 INR 1.5 (0.8-1.2) H 04/24/17 05:42 APTT 34.0 secs (24.9-33.3) H 04/22/17 17:10 D-Dimer > 1050.0 ng/mL (200.0-255.0) H 04/22/17 17:10 Sodium 136 mmol/L (135-145) 04/24/17 05:42 Potassium 4.1 mmol/L (3.5-5.0) 04/24/17 05:42 Chloride 106 mmol/L (101-111) 04/24/17 05:42 Carbon Dioxide 25 mmol/L (21-32) 04/24/17 05:42 Anion Gap 5.0 (6-13) L 04/24/17 05:42 BUN 18 mg/dL (6-20) 04/24/17 05:42 Creatinine 1.1 mg/dL (0.6-1.2) 04/24/17 05:42 Estimated GFR (MDRD) 65 (>89) L 04/24/17 05:42 Glucose 173 mg/dL (70-100) H 04/24/17 05:42 POC Whole Bld Glucose 233 mg/dL (70 - 100) H 04/24/17 11:17 Glycated Hemoglobin 7.3 % (4.6-6.2) H 04/22/17 17:10 Estim Average Glucose 163 (70-100) H 04/22/17 17:10 Calcium 9.2 mg/dL (8.5-10.3) 04/24/17 05:42 Phosphorus 3.5 mg/dL (2.5-4.6) 04/24/17 05:42 Magnesium 1.9 mg/dL (1.7-2.8) 04/24/17 05:42 Total Bilirubin 0.4 mg/dL (0.2-1.0) 04/24/17 05:42 AST 14 IU/L (10-42) 04/24/17 05:42 ALT 18 IU/L (10-60) 04/24/17 05:42 Alkaline Phosphatase 50 IU/L (42-121) 04/24/17 05:42 Total Creatine Kinase 30 IU/L (22-269) 04/22/17 17:10 Troponin I 0.31 ng/mL (<0.49) 04/22/17 17:10 B-Natriuretic Peptide 354 pg/mL (5-100) H 04/22/17 17:10 Total Protein 6.2 g/dL (6.7-8.2) L 04/24/17 05:42 Albumin 3.4 g/dL (3.2-5.5) 04/24/17 05:42 Globulin 2.8 g/dL (2.1-4.2) 04/24/17 05:42 Albumin/Globulin Ratio 1.2 (1.0-2.2) 04/24/17 05:42 Lipase 24 U/L (22-51) 04/22/17 17:10 Urine Color YELLOW 04/23/17 01:26 Urine Clarity CLEAR (CLEAR) 04/23/17 01:26 Urine pH 5.5 PH (5.0-7.5) 04/23/17 01:26 Ur Specific [place] 1.020 (1.002-1.030) 04/23/17 01:26 Urine Protein 100 mg/dL (NEGATIVE) H 04/23/17 01:26 Urine Glucose (UA) NEGATIVE mg/dL (NEGATIVE) 04/23/17 01:26 Urine Ketones TRACE mg/dL (NEGATIVE) 04/23/17 01:26 Urine Occult Blood MODERATE (NEGATIVE) H 04/23/17 01:26 Urine Nitrite NEGATIVE (NEGATIVE) 04/23/17 01:26 Urine Bilirubin NEGATIVE (NEGATIVE) 04/23/17 01:26 Urine Urobilinogen 0.2 (NORMAL) E.U./dL (NORMAL) 04/23/17 01:26 Ur Leukocyte Esterase NEGATIVE (NEGATIVE) 04/23/17 01:26 Urine RBC 6-10 /HPF (0-5) H 04/23/17 01:26 Urine WBC 0-3 /HPF (0-3) 04/23/17 01:26 Ur Squamous Epith Cells MOD Squamous (<= Few) H 04/23/17 01:26 Urine Bacteria Few /HPF (None Seen) 04/23/17 01:26 Urine Casts 0-2 Hyaline Casts /LPF 04/23/17 01:26 Urine Mucus Few Strands 04/23/17 01:26 Ur Microscopic Review INDICATED 04/23/17 01:26 Urine Culture Comments NOT INDICATED 04/23/17 01:26
[2017-04-24] MEDS: INSULIN GLARGINE 300 UNIT/3 ML PEN SUBQ SCH (21:01)
[2017-04-24] MEDS: TERAZOSIN 1 MG CAPSULE PO SCH (21:02)
[2017-04-24] MEDS: TERAZOSIN 5 MG CAPSULE PO SCH (21:02)
[2017-04-25] MEDS: SODIUM CHLORIDE FLUSH 0.9% 10 ML SYRINGE IVP SCH ×3 (06:17→21:41)
[2017-04-25] MEDS: PANTOPRAZOLE 40 MG TABLET PO SCH (06:17)
[2017-04-25] MEDS: INSULIN ASPART 300 UNIT/3 ML PEN SUBQ SCH ×4 (08:17→21:41)
[2017-04-25] MEDS: RIVAROXABAN 15 MG TABLET PO SCH ×2 (08:18→17:02)
[2017-04-25] MEDS: LISINOPRIL 20 MG TABLET PO SCH (08:18)
[2017-04-25] MEDS: FINASTERIDE 5 MG TABLET PO SCH (08:18)
[2017-04-25] MEDS: ATORVASTATIN 10 MG TABLET PO SCH (08:18)
[2017-04-25] MEDS: ESCITALOPRAM 10 MG TABLET PO SCH (08:19)
[2017-04-25] MEDS: POLYETHYLENE GLYCOL 3350 17 GM PACKET PO SCH (08:19)
[2017-04-25] MEDS: ALBUTEROL NEB 2.5 MG/3 ML INH PRN (09:19)
--- NOTE | 2017-04-25 10:21 | XRAY Preliminary Report ---
Exam: XR Chest 2 View PA/LAT IMPRESSION: 1. Minimal basilar opacities favoring atelectasis rather than consolidation. 2. No vascular congestion. [facility] SITE ID: [id number]
--- NOTE | 2017-04-25 10:24 | XRAY Report ---
EXAM: CHEST RADIOGRAPHY EXAM DATE: 04/25/2017 10:10 AM. CLINICAL HISTORY: Wheezing, sob admit for PE . COMPARISON: 04/22/2017. TECHNIQUE: 2 views. FINDINGS: Lungs/Pleura: Minimal basilar opacities. No vascular congestion. No pneumothorax. There may be a smal l right pleural effusion. Mediastinum: Heart size is upper normal. Mediastinal contour is stable. Other: Degenerative changes of the thoracic spine. IMPRESSION: 1. Minimal basilar opacities favoring atelectasis rather than consolidation. 2. No vascular congestion. [facility] Referring Provider Line: [phone] SITE ID: [id number]
--- NOTE | 2017-04-25 12:18 | PROVIDER PROGRESS NOTE ---
Assessment/Plan - Problem List (1) Acute saddle pulmonary embolism Qualifiers: Acute cor pulmonale presence: without acute cor pulmonale Qualified Code(s) : I26.92 - Saddle embolus of pulmonary artery without acute cor pulmonale Assessment/Plan: # Acute Pulmonary Embolism, provoked PE due to long car ride and sedentary. presented with sob, feeling dizzy and fatigue. Ct with bilateral PE and evidence of right heart strain, HD stable. Pt started briefly on heparin in the ER, switched to lovenox on admit. started xarelto 04/23. Continues to have SOB and wheeze, try Albuteral neb. Pt denies hx of COPD/ Asthma and I am reluctant to start steroids in setting of not well controlled dm. HD stable, repeat CXR today to further evaluate. # Elevated trop suspect this is due to right heart strain from PE. pt has no chest pain. # Diabetes type 2 unknown complications hold metformin due to CT with contrast. Continue SSI and diabetic diet. lantus 8 units hs 04/24 with some improvement, BS up to 192 today. AM LABS and continue to monitor BS # SARMAD Continue home CPAP # Htn continue home medication # Morbid obesity. BMI 49. Encourage wt reduction # DVT ppx Full dose AC - Current Meds Current Meds: Current Medications Generic Name Dose Route Start Last Admin Trade Name Freq PRN Reason Stop Dose Admin Acetaminophen 650 mg 04/22/17 19:23 04/24/17 09:09 Tylenol PO 650 mg Q4HR PRN Administration Pain 1 to 4 Albuterol 2.5 mg 04/24/17 09:26 04/25/17 09:19 INH 2.5 mg RTQ4H PRN Administration Wheezing Atorvastatin Calcium 10 mg 04/23/17 09:00 04/25/17 08:18 Lipitor PO 10 mg DAILY ANNITA Administration Cyclobenzaprine HCl 10 mg 04/22/17 19:19 04/24/17 09:09 Flexeril PO 10 mg TID PRN Administration Spasms Escitalopram Oxalate 20 mg 04/23/17 09:00 04/25/17 08:19 Lexapro PO 20 mg DAILY ANNITA Administration Finasteride 5 mg 04/23/17 09:00 04/25/17 08:18 Proscar PO 5 mg DAILY ANNITA Administration Insulin Aspart 1 - 5 unit 04/22/17 21:00 04/25/17 11:31 Novolog SUBQ 2 unit 0800,1200,1700,2100 ANNITA Administration Protocol Insulin Glargine 8 unit 04/24/17 21:00 04/24/17 21:01 Lantus Solostar SUBQ 8 unit QPM ANNITA Administration Lisinopril 40 mg 04/23/17 09:00 04/25/17 08:18 Zestril PO 40 mg DAILY ANNITA Administration Pantoprazole Sodium 40 mg 04/23/17 07:00 04/25/17 06:17 Protonix PO 40 mg QDAC ANNITA Administration Polyethylene Glycol 17 gm 04/23/17 09:00 04/25/17 08:19 Miralax PO Not Given DAILY ANNITA Rivaroxaban 15 mg 04/23/17 17:00 04/25/17 08:18 Xarelto PO 15 mg BIDWM ANNITA Administration Sodium Chloride 10 ml 04/22/17 22:00 04/25/17 06:17 Normal Saline Flush 0.9% IVP 10 ml Q8HR ANNITA Administration Terazosin HCl 5 mg 04/23/17 21:00 04/24/17 21:02 Hytrin PO 5 mg QPM ANNITA Administration Terazosin HCl 1 mg 04/23/17 21:00 04/24/17 21:02 Hytrin PO 1 mg QPM ANNITA Administration Zolpidem Tartrate 5 mg 04/22/17 19:23 04/22/17 23:45 Ambien PO 5 mg QPM PRN Administration Insomnia - Lab Result Fish Bone Diagrams: 04/24/17 05:42 04/24/17 05:42 - Additional Planning My Orders: My Active Orders 04/24/17 21:00 Insulin Glargine [Lantus Solostar] 8 unit SUBQ QPM 04/25/17 05:00 Chem 8 [BMP - BASIC METABOLIC PANEL] [CHEM] DAILYLAB Subjective - Subjective Patient Reports: Shortness of Breath (continues to c/o sob and wheeze, had CPAP machine brought in last night and feels he slept better with it.) Objective Vital Signs: Vital Signs - 24 hr 04/24/17 04/24/17 04/24/17 15:49 20:23 20:25 Temperature 36.5 C 36.9 C Heart Rate 78 Heart Rate [ 76 Brachial] Heart Rate [ 85 Radial] Respiratory 18 24 18 Rate Blood Pressure 134/83 H [Left Radial artery] Blood Pressure 134/85 H [Right Radial artery] O2 Saturation 96 94 04/25/17 04/25/17 04/25/17 02:06 07:28 09:31 Temperature 36.4 C L 36.3 C L Heart Rate 84 Heart Rate [ 89 87 Brachial] Heart Rate [ Radial] Respiratory 20 20 18 Rate Blood Pressure 135/79 H [Left Radial artery] Blood Pressure 125/78 [Right Radial artery] O2 Saturation 94 96 Oxygen O2 Source Room air I&O (Last 24 Hrs): Intake and Output Totals x24h 04/23/17 04/24/17 04/25/17 23:59 23:59 23:59 Intake Total 3316 3180 500 Output Total 300 600 350 Balance 3016 2580 150 General: Alert, Oriented x3, Cooperative, No acute distress Cardiovascular: Regular rate, Normal S1, Normal S2 Respiratory: Chest non-tender, No respiratory distress, Wheezes Abdomen: Normal bowel sounds, No tenderness, No masses Extremities: No clubbing, No edema, No tenderness/swelling - Results Results: Laboratory Results WBC 6.8 x10^3/uL (4.8-10.8) 04/24/17 05:42 RBC 4.16 10^6/uL (4.70-6.10) L 04/24/17 05:42 Hgb 12.8 g/dL (14.0-18.0) L 04/24/17 05:42 Hct 38.7 % (42.0-52.0) L 04/24/17 05:42 MCV 93.1 fL (80.0-94.0) 04/24/17 05:42 MCH 30.8 pg (27.0-31.0) 04/24/17 05:42 MCHC 33.1 g/dL (32.0-36.0) 04/24/17 05:42 RDW 15.0 % (12.0-15.0) 04/24/17 05:42 Plt Count 132 10^3/uL (130-450) 04/24/17 05:42 MPV 7.0 fL (7.4-11.4) L 04/24/17 05:42 Neut # 4.1 10^3/uL (1.5-6.6) 04/24/17 05:42 Lymph # 1.9 10^3/uL (1.5-3.5) 04/24/17 05:42 [place] # 0.6 10^3/uL (0.0-1.0) 04/24/17 05:42 Eos # 0.2 10^3/uL (0.0-0.7) 04/24/17 05:42 Baso # 0.0 10^3/uL (0.0-0.1) 04/24/17 05:42 Absolute Nucleated RBC 0.00 x10^3/uL 04/24/17 05:42 Nucleated RBCs 0.0 /100WBC 04/24/17 05:42 PT 17.1 secs (9.9-12.6) H 04/24/17 05:42 INR 1.5 (0.8-1.2) H 04/24/17 05:42 APTT 34.0 secs (24.9-33.3) H 04/22/17 17:10 D-Dimer > 1050.0 ng/mL (200.0-255.0) H 04/22/17 17:10 Sodium 136 mmol/L (135-145) 04/24/17 05:42 Potassium 4.1 mmol/L (3.5-5.0) 04/24/17 05:42 Chloride 106 mmol/L (101-111) 04/24/17 05:42 Carbon Dioxide 25 mmol/L (21-32) 04/24/17 05:42 Anion Gap 5.0 (6-13) L 04/24/17 05:42 BUN 18 mg/dL (6-20) 04/24/17 05:42 Creatinine 1.1 mg/dL (0.6-1.2) 04/24/17 05:42 Estimated GFR (MDRD) 65 (>89) L 04/24/17 05:42 Glucose 173 mg/dL (70-100) H 04/24/17 05:42 POC Whole Bld Glucose 192 mg/dL (70 - 100) H 04/25/17 11:20 Glycated Hemoglobin 7.3 % (4.6-6.2) H 04/22/17 17:10 Estim Average Glucose 163 (70-100) H 04/22/17 17:10 Calcium 9.2 mg/dL (8.5-10.3) 04/24/17 05:42 Phosphorus 3.5 mg/dL (2.5-4.6) 04/24/17 05:42 Magnesium 1.9 mg/dL (1.7-2.8) 04/24/17 05:42 Total Bilirubin 0.4 mg/dL (0.2-1.0) 04/24/17 05:42 AST 14 IU/L (10-42) 04/24/17 05:42 ALT 18 IU/L (10-60) 04/24/17 05:42 Alkaline Phosphatase 50 IU/L (42-121) 04/24/17 05:42 Total Creatine Kinase 30 IU/L (22-269) 04/22/17 17:10 Troponin I 0.31 ng/mL (<0.49) 04/22/17 17:10 B-Natriuretic Peptide 354 pg/mL (5-100) H 04/22/17 17:10 Total Protein 6.2 g/dL (6.7-8.2) L 04/24/17 05:42 Albumin 3.4 g/dL (3.2-5.5) 04/24/17 05:42 Globulin 2.8 g/dL (2.1-4.2) 04/24/17 05:42 Albumin/Globulin Ratio 1.2 (1.0-2.2) 04/24/17 05:42 Lipase 24 U/L (22-51) 04/22/17 17:10 Urine Color YELLOW 04/23/17 01:26 Urine Clarity CLEAR (CLEAR) 04/23/17 01:26 Urine pH 5.5 PH (5.0-7.5) 04/23/17 01:26 Ur Specific Mission 1.020 (1.002-1.030) 04/23/17 01:26 Urine Protein 100 mg/dL (NEGATIVE) H 04/23/17 01:26 Urine Glucose (UA) NEGATIVE mg/dL (NEGATIVE) 04/23/17 01:26 Urine Ketones TRACE mg/dL (NEGATIVE) 04/23/17 01:26 Urine Occult Blood MODERATE (NEGATIVE) H 04/23/17 01:26 Urine Nitrite NEGATIVE (NEGATIVE) 04/23/17 01:26 Urine Bilirubin NEGATIVE (NEGATIVE) 04/23/17 01:26 Urine Urobilinogen 0.2 (NORMAL) E.U./dL (NORMAL) 04/23/17 01:26 Ur Leukocyte Esterase NEGATIVE (NEGATIVE) 04/23/17 01:26 Urine RBC 6-10 /HPF (0-5) H 04/23/17 01:26 Urine WBC 0-3 /HPF (0-3) 04/23/17 01:26 Ur Squamous Epith Cells MOD Squamous (<= Few) H 04/23/17 01:26 Urine Bacteria Few /HPF (None Seen) 04/23/17 01:26 Urine Casts 0-2 Hyaline Casts /LPF 04/23/17 01:26 Urine Mucus Few Strands 04/23/17 01:26 Ur Microscopic Review INDICATED 04/23/17 01:26 Urine Culture Comments NOT INDICATED 04/23/17 01:26
[2017-04-25] MEDS ORDERED: traZODone 50 MG TABLET PO SCH (21:00)
[2017-04-25] MEDS: INSULIN GLARGINE 300 UNIT/3 ML PEN SUBQ SCH (21:40)
[2017-04-25] MEDS: TERAZOSIN 1 MG CAPSULE PO SCH (21:40)
[2017-04-25] MEDS: TERAZOSIN 5 MG CAPSULE PO SCH (21:40)
[2017-04-26] MEDS: PANTOPRAZOLE 40 MG TABLET PO SCH (06:28)
[2017-04-26] MEDS: SODIUM CHLORIDE FLUSH 0.9% 10 ML SYRINGE IVP SCH ×2 (06:29→14:28)
[2017-04-26 06:37] LABS: BASOPHILS # (AUTO) 0.1 10^3/uL (0.0-0.1); BASOPHILS % (AUTO) 0.7 %; EOSINOPHILS # (AUTO) 0.2 10^3/uL (0.0-0.7); EOSINOPHILS % (AUTO) 2.8 %; HCT - HEMATOCRIT 39.3 % (42.0-52.0); HGB - HEMOGLOBIN 13.2 g/dL (14.0-18.0); LYMPHOCYTES # (AUTO) 1.8 10^3/uL (1.5-3.5); LYMPHOCYTES % (AUTO) 25.9 %; MEAN CORPUSCULAR HGB CONC 33.5 g/dL (32.0-36.0); MEAN CORPUSCULAR VOLUME 92.6 fL (80.0-94.0); MEAN PLATELET VOLUME 6.8 fL (7.4-11.4); MONOCYTES # (AUTO) 0.6 10^3/uL (0.0-1.0); MONOCYTES % (AUTO) 8.2 %; NEUTROPHILS # (AUTO) 4.3 10^3/uL (1.5-6.6); NEUTROPHILS % (AUTO) 62.4 %; RED BLOOD COUNT 4.25 10^6/uL (4.70-6.10); RED CELL DISTRIBUTION WIDTH 15.1 % (12.0-15.0); UNCORRECTED WHITE BLOOD COUNT 6.9 x10^3/uL; WHITE BLOOD COUNT 6.9 x10^3/uL (4.8-10.8)
[2017-04-26] MEDS: INSULIN ASPART 300 UNIT/3 ML PEN SUBQ SCH ×2 (08:24→12:13)
[2017-04-26] MEDS: ATORVASTATIN 10 MG TABLET PO SCH (08:24)
[2017-04-26] MEDS: LISINOPRIL 20 MG TABLET PO SCH (08:25)
[2017-04-26] MEDS: ESCITALOPRAM 10 MG TABLET PO SCH (08:25)
[2017-04-26] MEDS: POLYETHYLENE GLYCOL 3350 17 GM PACKET PO SCH (08:25)
[2017-04-26] MEDS: FINASTERIDE 5 MG TABLET PO SCH (08:25)
[2017-04-26] MEDS: RIVAROXABAN 15 MG TABLET PO SCH ×2 (08:25→14:57)
--- NOTE | 2017-04-26 09:29 | Discharge Plan ---
Discharge Plan Disposition: 01 Home, Self Care Condition: Good Prescriptions: Rivaroxaban [Xarelto] 15 mg PO BIDWM #19 tablet Diet: Regular No Smoking: If you smoke, Please STOP! Call for help.
--- NOTE | 2017-04-26 10:06 | Discharge Plan ---
Discharge Plan Disposition: Home Health Service Condition: Good Prescriptions: Rivaroxaban [Xarelto] 15 mg PO BIDWM #19 tablet Rivaroxaban [Xarelto] 20 mg PO DAILY 30 Days No Smoking: If you smoke, Please STOP! Call for help.
[2017-04-26] MEDS: ALBUTEROL NEB 2.5 MG/3 ML INH PRN (11:40)
--- NOTE | 2017-04-26 13:50 | Discharge Plan ---
Discharge Plan Disposition: Home Health Service Condition: Good Prescriptions: Rivaroxaban [Xarelto] 15 mg PO BIDWM #19 tablet Rivaroxaban [Xarelto] 20 mg PO DAILY 30 Days Instruction Topics: Rivaroxaban oral tablets, Embolism Pulmonary Dc Follow-Up Care: Home Health - RN (face to face - pt is home bound is unable to ambulate safely to out pt facility. PT recommends HH PT/OT for increased mobility, ADL's and safety.), Home Health - PT, Home Health - OT No Smoking: If you smoke, Please STOP! Call for help.
[2017-04-26] MEDS: ACETAMINOPHEN 325 MG TABLET PO PRN (14:29)
[2017-04-26 16:11] VITALS: BP 118/67
--- NOTE | 2017-04-27 09:05 | DISCHARGE SUMMARY ---
DISCHARGE DATE: 04/26/2017 DISCHARGE DIAGNOSES 1. Acute saddle pulmonary embolism. 2. Elevated troponin. 3. Type 2 diabetes. 4. Hypertension. 5. Obstructive sleep apnea. 6. Morbid obesity. HOSPITAL COURSE 1. Pulmonary embolism: Suspected this was provoked by a long car ride and sedentary life style. The patient presented with shortness of breath, feeling dizzy and fatigued. A CT of the chest showed bilateral pulmonary emboli and evidence of right heart strain, although the patient was hemodynamically stable. He was initially on heparin and then switched to Lovenox. The following day after the Family Program Specialist verified that he would be able to afford Xarelto, it was started at 15 mg twice daily. The patient had a cardiac echo preliminary report with an ejection fraction of 65% to 70% and grade 1 diastolic dysfunction. On hospital day 2, the patient complained of feeling more short of breath and had some wheezing, so he remained in the hospital. He had a Physical Therapy consult because it was not clear that he would be able to discharge home and care for himself. He was found to be independent on the initial Physical Therapy consult, and they recommended that he have one more physical therapy session prior to discharge. However, he refused every subsequent physical therapy evaluation until the day of discharge, at which time he agreed to be seen and was felt to be stable for discharge with family. He has a walker and can have outpatient therapy as needed. D/w pt risk / benefit of AC tx, also told him what it would cost including copay and deductible - he was agreeable with plan to dc on xarelto. 2. Elevated troponin: I suspect this is due to right heart strain with pulmonary embolism. The patient had no chest pain, and troponin was not trending up. 3. Type 2 diabetes: He was not continued on metformin due to CT contrast. He was continued on sliding scale insulin and a diabetic diet. Due to an elevated blood sugar during his hospitalization, he was given Lantus 8 units at bedtime, with improvement. On discharge, he can resume metformin. 4. Obstructive sleep apnea: The patient uses CPAP at home. He did not have it brought in until hospital day #3 and said he slept better with it. He was encouraged to continue using it at home. 5. Hypertension: He was continued on his home medications. 6. Morbid obesity: Encourage increased activity and weight reduction. DISCHARGE MEDICATIONS 1. Xarelto 15 mg twice daily for 19 days, to complete a 21-day course. 2. Xarelto 20 mg daily, to start after completion of the 19-day twice daily dosing. He was told to continue: 1. Flexeril. 2. Diclofenac. 3. Lexapro. 4. Finasteride. 5. Lasix. 6. Lisinopril. 7. Metformin. 8. Simvastatin. 9. Terazosin. 10. Benadryl. He was only given the starter pack and then a 1-month supply of Xarelto, but was told that he would need to continue anticoagulation for at least 6 months and he needs to follow up with a primary care provider to refill his prescriptions. DISCHARGE INSTRUCTIONS: The patient verbalized understanding and had no questions on discharge. DISCHARGE CONDITION: He was discharged in stable condition with his family. TIME SPENT: Forty minutes were spent on discharge of this patient. [facility]
== END 2017-04-26 17:00 | disposition home health service (06) | DRG 176 ==
LOC: EDUNIT# → ED 14:54 → MS 19:23
PROVIDERS: ADMIT Internal Medicine; ATTEND Internal Medicine
DX: I26.92 Saddle embolus of pulmonary artery without acute cor pulmonale (principal); I26.09 Other pulmonary embolism with acute cor pulmonale; I11.9 Hypertensive heart disease without heart failure; E66.9 Obesity, unspecified; Z68.42 Body mass index [BMI] 45.0-49.9, adult; I51.89 Other ill-defined heart diseases; E11.9 Type 2 diabetes mellitus without complications; I10 Essential (primary) hypertension; G47.33 Obstructive sleep apnea (adult) (pediatric); E66.01 Morbid (severe) obesity due to excess calories; E78.5 Hyperlipidemia, unspecified; N40.0 Benign prostatic hyperplasia without lower urinary tract symptoms; Z85.828 Personal history of other malignant neoplasm of skin; Z87.891 Personal history of nicotine dependence; Z79.84 Long term (current) use of oral hypoglycemic drugs
CPT/HCPCS: 36415; 71010; 71020; 71275; 80048; 80053; 81001; 81003; 82550; 83036; 83690; 83735; 83880; 84100; 84484; 85025; 85379; 85610; 85730; 87086; 93005; 93306; 94640; 96374; 96376; 99283; 99285

== ENCOUNTER 2017-04-27 01:33 | Outpatient (CLI) | payer MEDICARE | END 2017-04-27 01:34 | disposition EMS.NT | LOC: EMS 01:33 | PROVIDERS: ATTEND Surgery | DX: R53.1 Weakness (principal); R06.02 Shortness of breath; W01.0XXA Fall on same level from slipping, tripping and stumbling without subsequent striking against object, initial encounter; Y92.003 Bedroom of unspecified non-institutional (private) residence as the place of occurrence of the external cause ==

== ENCOUNTER 2017-05-11 00:07 | Outpatient (CLI) | payer MEDICARE | END 2017-05-11 00:08 | disposition critical access hospital (66) | LOC: EMS 00:07 | PROVIDERS: ATTEND Surgery | DX: R06.00 Dyspnea, unspecified (principal) | CPT/HCPCS: A0425; A0429 ==

== ENCOUNTER 2017-05-11 00:57 | Emergency (ER) | payer MEDICARE ==
[2017-05-11 01:37] LABS: BASOPHILS # (AUTO) 0.1 10^3/uL (0.0-0.1); BASOPHILS % (AUTO) 0.6 %; EOSINOPHILS # (AUTO) 0.2 10^3/uL (0.0-0.7); EOSINOPHILS % (AUTO) 2.5 %; HCT - HEMATOCRIT 43.7 % (42.0-52.0); HGB - HEMOGLOBIN 14.8 g/dL (14.0-18.0); LYMPHOCYTES # (AUTO) 1.6 10^3/uL (1.5-3.5); LYMPHOCYTES % (AUTO) 17.8 %; MEAN CORPUSCULAR HEMOGLOBIN 30.5 pg (27.0-31.0); MEAN CORPUSCULAR HGB CONC 33.9 g/dL (32.0-36.0); MEAN CORPUSCULAR VOLUME 90.2 fL (80.0-94.0); MEAN PLATELET VOLUME 6.8 fL (7.4-11.4); MONOCYTES # (AUTO) 0.7 10^3/uL (0.0-1.0); MONOCYTES % (AUTO) 8.1 %; NEUTROPHILS # (AUTO) 6.5 10^3/uL (1.5-6.6); RED BLOOD COUNT 4.85 10^6/uL (4.70-6.10); RED CELL DISTRIBUTION WIDTH 14.8 % (12.0-15.0); UNCORRECTED WHITE BLOOD COUNT 9.1 x10^3/uL; WHITE BLOOD COUNT 9.1 x10^3/uL (4.8-10.8)
[2017-05-11 01:45] LABS: ALBUMIN/GLOBULIN RATIO 1.1 (1.0-2.2); BILIRUBIN,TOTAL 0.8 mg/dL (0.2-1.0); CALCIUM 10.1 mg/dL (8.5-10.3); CREATININE 1.3 mg/dL (0.6-1.2); POTASSIUM 4.5 mmol/L (3.5-5.0); TOTAL PROTEIN 7.4 g/dL (6.7-8.2)
--- NOTE | 2017-05-11 01:53 | XRAY Preliminary Report ---
Exam: XR Chest 1 View IMPRESSION: 1. Mild left lower lobe atelectasis. 2. No acute pulmonary process. [facility] SITE ID: [id number]
--- NOTE | 2017-05-11 01:57 | ED Physician Documentation ---
PD HPI DYSPNEA - Stated complaint Stated Complaint: SOB - Chief complaint Chief Complaint: Resp - History obtained from History obtained from: Patient, EMS - History of Present Illness Timing - onset: How many hours ago (2) Timing - onset during: Rest Timing - details: Now resolved (Last at about 1.5 hours.) Worsened by: Laying flat Associated symptoms: No: Fever, Cough, Chest pain / discomfort Recently seen: Admitted (Hospitalized here 3 weeks ago with pulmonary embolus.) - Additional information Additional information: The patient is a 76-year-old male with history of saddle pulmonary embolus that was diagnosed 3 weeks ago, who presents tonight with shortness of breath that started about 2 hours prior to arrival while at rest. It lasted for about 90 minutes before resolving just prior to arrival. He denies associated chest pain , cough, fever, or abdominal symptoms. In addition to recently diagnosed pulmonary embolus, he has history of sleep apnea, congestive heart failure, and morbid obesity. After being started on Xarelto while in the hospital, he did not fill the prescription with which he was discharged because of the cost of the medication. He recently moved here from [place], and his first appointment with a local primary physician is scheduled for later this week. Review of Systems Constitutional: reports: Fatigue (chronically). denies: Fever Nose: denies: Congestion Throat: denies: Sore throat Cardiac: denies: Chest pain / pressure Respiratory: reports: Dyspnea. denies: Cough GI: denies: Abdominal Pain, Nausea, Vomiting : denies: Dysuria Skin: denies: Rash Musculoskeletal: reports: Extremity swelling (chronically, with no recent change.) Neurologic: denies: Focal weakness, Numbness, Headache PD PAST MEDICAL HISTORY - Past Medical History Cardiovascular: Hypertension, High cholesterol Respiratory: None, Sleep apnea, Other Neuro: None Endocrine/Autoimmune: Type 2 diabetes GI: None : Kidney stones, Other HEENT: None Psych: Panic attacks Musculoskeletal: Osteoarthritis Derm: None Other Past Medical History: PE - Past Surgical History Past Surgical History: Yes General: Appendectomy Derm: Skin cancer surgery - Present Medications Home Medications: Ambulatory Orders Medication Instructions Recorded Confirmed Diclofenac Potassium [[place]amb[place]] 50 mg PO .BID-TID 04/22/17 05/11/17 Escitalopram [Lexapro] 20 mg PO DAILY 04/22/17 05/11/17 Metformin HCl 850 mg PO BIDWM 04/22/17 05/11/17 Simvastatin 20 mg PO DAILY 04/22/17 05/11/17 Terazosin [Hytrin] 6 mg PO QPM 04/22/17 05/11/17 Furosemide 40 mg PO DAILY 04/23/17 05/11/17 Lisinopril 40 mg PO DAILY 04/23/17 05/11/17 Cyclobenzaprine [Flexeril] 10 mg ORAL DAILY 05/11/17 05/11/17 Finasteride 5 mg ORAL DAILY 05/11/17 05/11/17 Rivaroxaban [Xarelto] 15 mg PO BID #30 tablet 05/11/17 Warfarin [Coumadin] 2.5 mg PO DAILY #30 tablet 05/11/17 - Allergies Allergies/Adverse Reactions: Allergies Allergy/AdvReac Type Severity Reaction Status Date / Time codeine Allergy Rash Verified 05/11/17 01:06 - Living Situation Living Situation: reports: With family Living Arrangement: reports: At home - Social History Does the pt smoke?: No Smoking Status: Former smoker Does the pt drink ETOH?: Yes Does the pt have substance abuse?: No Additional Social History: Recently moved here from [place]. 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.) - Extremities Extremities: No calf tenderness / cord, Other (Bilateral pedal edema, with lymphedema.) - Neuro Neuro: Alert and oriented X 3, No motor deficit, No sensory deficit Results - Vitals Vitals: Vital Signs - 24 hr 05/11/17 05/11/17 05/11/17 01:01 02:22 03:30 Temperature 36.4 C L Heart Rate 100 101 H 100 Respiratory 23 20 20 Rate Blood Pressure 185/106 H 152/84 H 138/109 H O2 Saturation 91 L 93 92 05/11/17 05:35 Temperature Heart Rate 99 Respiratory 20 Rate Blood Pressure 145/85 H O2 Saturation 92 Oxygen O2 Source Room air - EKG (time done) 01:49 Rate: Rate (enter#) (95) Rhythm: NSR [place]: Normal Intervals: Normal [place] QRS: Low voltage Ischemia: Non specific changes (borderline T wave flattening in inferior leads.) Compare to prior EKG: Changed from prior EKG (Compared to prior tracing, 04/22/17 , right axis deviation is no longer present.) Computer interpretation: Agree with computer - Labs Labs: Laboratory Tests 05/11/17 05/11/17 05/11/17 01:16 01:16 01:16 WBC 9.1 RBC 4.85 Hgb 14.8 Hct 43.7 MCV 90.2 MCH 30.5 MCHC 33.9 RDW 14.8 Plt Count 146 MPV 6.8 L Neut # 6.5 Lymph # 1.6 [place] # 0.7 Eos # 0.2 Baso # 0.1 Absolute Nucleated RBC 0.00 Nucleated RBCs 0.0 Sodium 136 Potassium 4.5 Chloride 99 L Carbon Dioxide 29 Anion Gap 8.0 BUN 16 Creatinine 1.3 H Estimated GFR (MDRD) 54 L Glucose 170 H Calcium 10.1 Total Bilirubin 0.8 AST 16 ALT 15 Alkaline Phosphatase 57 Troponin I < 0.04 Total Protein 7.4 Albumin 3.8 Globulin 3.6 Albumin/Globulin Ratio 1.1 Lipase 31 - Rads (name of study) 2-view CXR Radiology: Prelim report reviewed, EMP read contemporaneously, See rad report ( 1. Mild left lower lobe atelectasis. 2. No acute pulmonary process. ) PD MEDICAL DECISION MAKING - ED course Complexity details: reviewed old records, reviewed results, re-evaluated patient , considered differential, d/w patient, d/w family ED course: The patient's presentation is significant for transient exacerbation of chronic underlying dyspnea. He has history of congestive heart failure, but does not appear to be an acute congestive heart failure at this time. His presentation does not suggest pneumonia, and his chest x-ray reveals no acute pulmonary infiltrate or pneumothorax. He was recently diagnosed with pulmonary embolus, and has not been taking his anticoagulant medication. Rather than subject him to another contrast-enhanced CT scan at this time, I chose to resume his anticoagulant medication, without repeat imaging. His pulse oximetry is adequate in the 91-95% range. Xarelto 30 mg administered orally. He is being discharged with prescription for Xarelto, but also for Coumadin in case he is not able to afford the more expensive medication. I discussed with him and his family the importance of being on the anticoagulant therapy. He is scheduled to follow up with his primary physician in 4 days, and I advised him to go to the lab for blood draw for an INR check prior to that appointment if he chooses to be on Coumadin rather than Xarelto. I discussed with him and his family potentially worrisome signs or symptoms that should prompt reevaluation in the emergency department. Departure - Departure Disposition: 01 Home, Self Care Clinical Impression: History of pulmonary embolus (PE), SARMAD on CPAP Dyspnea Qualifiers: Dyspnea type: shortness of breath Qualified Code(s): R06.02 - Shortness of breath Condition: Stable Instructions: ED Dyspnea Shortness of Breath Follow-Up: Amado Zuniga MD [Primary Care Provider] - Prescriptions: Warfarin [Coumadin] 2.5 mg PO DAILY #30 tablet Rivaroxaban [Xarelto] 15 mg PO BID #30 tablet Comments: Takes Xarelto twice daily as prescribed. Follow up with your primary physician within one week as scheduled. Return to the emergency department if you develop increasing difficulty breathing, or otherwise worsening symptoms. Discharge Date/Time: 05/11/17 06:14
[2017-05-11] MEDS ORDERED: RIVAROXABAN 15 MG TABLET PO SCH ×2 (02:00→17:00)
--- NOTE | 2017-05-11 03:15 | XRAY Report ---
EXAM: CHEST RADIOGRAPHY EXAM DATE: 05/11/2017 01:41 AM. CLINICAL HISTORY: Dyspnea. COMPARISON: 04/25/2017. TECHNIQUE: 1 view. FINDINGS: Lungs/Pleura: Mild left lower lobe atelectasis. No pleural effusion. No pneumothorax. Mediastinum: Within exam limitations, cardiomediastinal contour is normal. Other: None. IMPRESSION: 1. Mild left lower lobe atelectasis. 2. No acute pulmonary process. [facility] Referring Provider Line: [phone] SITE ID: [id number]
[2017-05-11] MEDS ORDERED: RIVAROXABAN 15 MG TABLET PO ONE (04:55)
[2017-05-11 05:36] VITALS: BP 145/85
== END 2017-05-11 06:14 | disposition home or self-care (01) ==
LOC: EDBD → EDUNIT# → ED 00:57 → SUPCPDRO 00:57 → ED 06:14
DX: R06.02 Shortness of breath (principal); R53.1 Weakness; I50.9 Heart failure, unspecified; E66.01 Morbid (severe) obesity due to excess calories; I11.0 Hypertensive heart disease with heart failure; E78.00 Pure hypercholesterolemia, unspecified; Z91.14 Patient's other noncompliance with medication regimen; Z87.891 Personal history of nicotine dependence; G47.33 Obstructive sleep apnea (adult) (pediatric); Z86.711 Personal history of pulmonary embolism
CPT/HCPCS: 36415; 71010; 80053; 83690; 84484; 85025; 93005; 99284; A9270

== ENCOUNTER 2017-06-13 11:32 | Outpatient (CLI) | payer MEDICARE | END 2017-06-13 11:33 | disposition EMS.NT | LOC: EMS 11:32 | PROVIDERS: ATTEND Surgery | DX: Z03.89 Encounter for observation for other suspected diseases and conditions ruled out (principal); W18.11XA Fall from or off toilet without subsequent striking against object, initial encounter; Y92.002 Bathroom of unspecified non-institutional (private) residence as the place of occurrence of the external cause ==

== ENCOUNTER 2017-10-01 19:50 | Outpatient (CLI) | payer MEDICARE | END 2017-10-01 19:51 | disposition critical access hospital (66) | LOC: EMS 19:50 | PROVIDERS: ATTEND Surgery | DX: M79.602 Pain in left arm (principal); R11.0 Nausea; W18.30XA Fall on same level, unspecified, initial encounter | CPT/HCPCS: A0425; A0427 ==

== ENCOUNTER 2017-10-01 20:34 | Emergency (ER) | payer MEDICARE ==
[2017-10-01] MEDS ORDERED: SODIUM CHLORIDE 0.9% 1,000 ML IV ONE (20:41)
--- NOTE | 2017-10-01 20:54 | ED Physician Documentation ---
PD HPI Fall - Stated complaint Stated Complaint: GLF/WEAKNESS - Chief complaint Chief Complaint: Neuro - History obtained from History obtained from: Patient, EMS - History of Present Illness Mechanism of injury: Unknown Fall distance: Standing position Where injury occurred: Home Timing - onset: Today Injury(ies) location: Back Quality of pain: Pain Associated symptoms: Weakness. No: Paresthesias, Dyspnea, Nausea / vomiting Similar symptoms before: Has not had sx before Recently seen: Not recently seen - Additional information Additional information: Patient is a 77 year old male with a history of diabetes, Pulmonary embolisms who was brought in by ems for fall. patient states that he does not know if he passed out and fell, or if he just slipped. (patient normally ambulates with a walker) Patient states that he has pain all over his body and is having trouble localizing his pain. patient states that he stopped taking all of his medications, including medication for diabetes and for previous blood clots Review of Systems Constitutional: denies: Fever, Chills Eyes: denies: Decreased vision, Photophobia Ears: denies: Ear pain Nose: denies: Congestion, Epistaxis Cardiac: denies: Chest pain / pressure Respiratory: denies: Cough GI: denies: Abdominal Pain, Nausea, Vomiting : reports: Incontinent Skin: reports: Rash, Lesions Musculoskeletal: reports: Back pain, Extremity pain, Joint pain, Extremity swelling, Joint swelling Neurologic: reports: Generalized weakness. denies: Focal weakness, Numbness, Headache, Head injury PD PAST MEDICAL HISTORY - Past Medical History Cardiovascular: Hypertension, High cholesterol Respiratory: None, Sleep apnea, Other Neuro: None Endocrine/Autoimmune: Type 2 diabetes GI: None : Kidney stones, Other HEENT: None Psych: Panic attacks Musculoskeletal: Osteoarthritis Derm: None - Past Surgical History Past Surgical History: Yes General: Appendectomy Derm: Skin cancer surgery - Present Medications Home Medications: Ambulatory Orders Medication Instructions Recorded Confirmed Levofloxacin [Levaquin] 750 mg PO DAILY #4 tablet 10/01/17 metFORMIN [Glucophage] 500 mg PO BIDWM #30 tablet 10/01/17 - Allergies Allergies/Adverse Reactions: Allergies Allergy/AdvReac Type Severity Reaction Status Date / Time codeine Allergy Rash Verified 10/01/17 20:45 - Social History Does the pt smoke?: No Smoking Status: Former smoker Does the pt drink ETOH?: Yes Does the pt have substance abuse?: No - Immunizations Immunizations are current?: Yes - POLST Patient has POLST: No POLST Status: Full Code PD ED PE NORMAL - Vitals Vital signs reviewed: Yes - HEENT HEENT: Atraumatic, PERRL - Neck Neck: Supple, no meningeal sign, No bony TTP - Cardiac Cardiac: RRR, No murmur PD ED PE EXPANDED - General General: Alert, Disheveled, poorly kept - HEENT HEENT: Dry mucous membranes - Respiratory Respiratory: No: Distress, Labored, Wheezing - Back Back: Vertebral tenderness, Soft tissue tenderness - Derm Derm: Rash (fungal infection in the pannus), Other (dry skin, ) - Extremities Extremities: Pedal edema bilateral. No: Deformity, Limited ROM, Bruising, Abrasion, Laceration - Neuro Neuro: Disoriented. No: Weakness, Abnormal sensation Results - Vitals Vitals: Vital Signs - 24 hr 10/01/17 10/01/17 10/01/17 20:34 21:27 22:30 Temperature 36.5 C Heart Rate 112 H 106 H 102 H Respiratory 22 16 16 Rate Blood Pressure 146/74 H 156/93 H 164/105 H O2 Saturation 97 98 96 10/01/17 10/01/17 10/02/17 22:53 23:31 00:57 Temperature 36.6 C 37.1 C Heart Rate 106 H 101 H Respiratory 16 16 Rate Blood Pressure 147/74 H 151/81 H O2 Saturation 100 98 Oxygen O2 Source Room air Oxygen Flow Rate 2 - EKG (time done) 2049 Rate: Rate (enter#) (109) Rhythm: Sinus tachycardia [place]: Normal Intervals: Prolonged [place] QRS: Normal Ischemia: Normal ST segments Compare to prior EKG: Unchanged from prior EKG Computer interpretation: Disagree with computer - Labs Labs: Laboratory Tests 10/01/17 10/01/17 10/01/17 19:10 20:57 20:57 WBC 9.2 RBC 5.17 Hgb 14.8 Hct 45.5 MCV 88.1 MCH 28.7 MCHC 32.5 RDW 16.3 H Plt Count 147 MPV 6.4 L Neut # 7.7 H Lymph # 0.8 L [place] # 0.7 Eos # 0.0 Baso # 0.0 Absolute Nucleated RBC 0.00 Nucleated RBC % 0.0 Sodium 134 L Potassium 4.0 Chloride 98 L Carbon Dioxide 25 Anion Gap 11.0 BUN 13 Creatinine 1.2 Estimated GFR (MDRD) 59 L Glucose 206 H Calcium 9.9 Phosphorus 2.7 Magnesium 1.6 L Total Bilirubin 0.7 AST 12 ALT < 10 L Alkaline Phosphatase 60 Ammonia Troponin I B-Natriuretic Peptide Total Protein 7.2 Albumin 3.7 Globulin 3.5 Albumin/Globulin Ratio 1.1 Lipase 47 Urine Color YELLOW Urine Clarity CLOUDY Urine pH 6.0 Ur Specific [place] 1.020 Urine Protein 100 H Urine Glucose (UA) NEGATIVE Urine Ketones NEGATIVE Urine Occult Blood MODERATE H Urine Nitrite POSITIVE H Urine Bilirubin NEGATIVE Urine Urobilinogen 0.2 (NORMAL) Ur Leukocyte Esterase LARGE H Urine RBC 0-5 Urine WBC >25 H Urine WBC Clumps PRESENT Ur Squamous Epith Cells NONE SEEN Urine Bacteria Moderate H Ur Microscopic Review INDICATED Urine Culture Comments INDICATED Ethyl Alcohol < 5.0 10/01/17 10/01/17 10/01/17 20:57 20:57 20:57 WBC RBC Hgb Hct MCV MCH MCHC RDW Plt Count MPV Neut # Lymph # [place] # Eos # Baso # Absolute Nucleated RBC Nucleated RBC % Sodium Potassium Chloride Carbon Dioxide Anion Gap BUN Creatinine Estimated GFR (MDRD) Glucose Calcium Phosphorus Magnesium Total Bilirubin AST ALT Alkaline Phosphatase Ammonia 13.6 Troponin I < 0.04 B-Natriuretic Peptide 35 Total Protein Albumin Globulin Albumin/Globulin Ratio Lipase Urine Color Urine Clarity Urine pH Ur Specific [place] Urine Protein Urine Glucose (UA) Urine Ketones Urine Occult Blood Urine Nitrite Urine Bilirubin Urine Urobilinogen Ur Leukocyte Esterase Urine RBC Urine WBC Urine WBC Clumps Ur Squamous Epith Cells Urine Bacteria Ur Microscopic Review Urine Culture Comments Ethyl Alcohol - Rads (name of study) ct head Radiology: Final report received (no acute abnormality) Ct angio Radiology: Final report received (no acute disease process) ct pelvis Radiology: Final report received (no acute fracture or dislocation) PD MEDICAL DECISION MAKING - ED course Complexity details: reviewed old records, reviewed results, re-evaluated patient , considered differential, d/w patient ED course: Patient was seen and examined at bedside. ekg was performed and was tachycardic but otherwise unchanged. Patient was treated with IV fluids. IV access was gained and labs were drawn. Due to patient's history of multiple PEs , CT angio was ordered. Patient seemed a bid confused and with the head trauma CT head and pelvis was ordered. When patient's diagnostics came back patient was found to have a urinary tract infection, but no acute traumatic injuries. Patient required no further work up at this time and was stable for discharge with outpatient follow up. Departure - Departure Disposition: 01 Home, Self Care Clinical Impression: Urinary tract infection Condition: Good Instructions: ED UTI Cystitis Male Follow-Up: Amado Zuniga MD [Primary Care Provider] - Within 3 Days Prescriptions: Levofloxacin [Levaquin] 750 mg PO DAILY #4 tablet metFORMIN [Glucophage] 500 mg PO BIDWM #30 tablet Comments: Your symptoms today are at least in part due to urinary tract infection. there were no major abnormalities on your imaging or other blood work. You had your first dose of antibiotics tonight and will need to be on them for the next 4 days. You will also be restarted on your metformin. 500mg BID. It is important that you follow up with your doctor this week. You may return to the emergency department at any time for new, worsening or uncontrollable symptoms.
[2017-10-01 21:08] LABS: BASOPHILS % (AUTO) 0.4 %; EOSINOPHILS % (AUTO) 0.3 %; HGB - HEMOGLOBIN 14.8 g/dL (14.0-18.0); LYMPHOCYTES # (AUTO) 0.8 10^3/uL (1.5-3.5); LYMPHOCYTES % (AUTO) 8.2 %; MEAN CORPUSCULAR HEMOGLOBIN 28.7 pg (27.0-31.0); MEAN CORPUSCULAR HGB CONC 32.5 g/dL (32.0-36.0); MEAN CORPUSCULAR VOLUME 88.1 fL (80.0-94.0); MEAN PLATELET VOLUME 6.4 fL (7.4-11.4); MONOCYTES # (AUTO) 0.7 10^3/uL (0.0-1.0); MONOCYTES % (AUTO) 7.3 %; NEUTROPHILS # (AUTO) 7.7 10^3/uL (1.5-6.6); NEUTROPHILS % (AUTO) 83.8 %; PLT - PLATELET COUNT 147 10^3/uL (130-450); RED BLOOD COUNT 5.17 10^6/uL (4.70-6.10); RED CELL DISTRIBUTION WIDTH 16.3 % (12.0-15.0); WHITE BLOOD COUNT 9.2 x10^3/uL (4.8-10.8)
[2017-10-01 21:17] LABS: ALBUMIN 3.7 g/dL (3.2-5.5); ALBUMIN/GLOBULIN RATIO 1.1 (1.0-2.2); ALKALINE PHOSPHATASE 60 IU/L (42-121); ALT ALANINE AMINOTRANSFERASE < 10 IU/L (10-60); AST ASPARTATE AMINOTRANSFERASE 12 IU/L (10-42); BILIRUBIN,TOTAL 0.7 mg/dL (0.2-1.0); BUN - BLOOD UREA NITROGEN 13 mg/dL (6-20); CALCIUM 9.9 mg/dL (8.5-10.3); CARBON DIOXIDE - CO2 25 mmol/L (21-32); CHLORIDE 98 mmol/L (101-111); CREATININE 1.2 mg/dL (0.6-1.2); GFR - MDRD 59 (>89); GLUCOSE 206 mg/dL (70-100); LIPASE 47 U/L (22-51); MAGNESIUM 1.6 mg/dL (1.7-2.8); PHOSPHORUS 2.7 mg/dL (2.5-4.6); SODIUM 134 mmol/L (135-145); TOTAL PROTEIN 7.2 g/dL (6.7-8.2)
[2017-10-01 21:28] LABS: BILIRUBIN,URINE NEGATIVE (NEGATIVE); GLUCOSE, URINE (UA) NEGATIVE (NEGATIVE); KETONES,URINE (UA) NEGATIVE (NEGATIVE); LEUKOCYTE ESTERASE, URINE LARGE (NEGATIVE); NITRITE,URINE POSITIVE (NEGATIVE); OCCULT BLOOD,URINE MODERATE (NEGATIVE); PROTEIN,URINE 100 mg/dL (NEGATIVE); UROBILINOGEN,URINE 0.2 (NORMAL) E.U./dL (NORMAL)
[2017-10-01 21:37] LABS: CLARITY,URINE CLOUDY (CLEAR)
[2017-10-01 21:38] LABS: BACTERIA,URINE Moderate /HPF (None Seen); RBC,URINE 0-5 /HPF (0-5); SQUAMOUS EPITHELIAL CELL,UR NONE SEEN (<= Few); WBC CLUMPS,URINE PRESENT
[2017-10-01] MEDS ORDERED: IOPAMIDOL-300 100 ML VIAL ONE (21:49)
[2017-10-01] MEDS ORDERED: fentaNYL 100 MCG/2 ML VIAL IVP STA (22:03)
[2017-10-01] MEDS ORDERED: fentaNYL 100 MCG/2 ML VIAL ONE (22:10)
[2017-10-01] MEDS ORDERED: levoFLOXacin 250 MG TABLET PO STA (22:20)
[2017-10-01] MEDS ORDERED: levoFLOXacin 750 MG/150 ML 750 MG/150 ML BAG IV ONE (22:20)
[2017-10-01] MEDS ORDERED: IOPAMIDOL-300 100 ML VIAL IVP ONE (22:26)
[2017-10-01] MEDS ORDERED: levoFLOXacin 250 MG TABLET ONE (22:31)
--- NOTE | 2017-10-01 22:44 | CT Preliminary Report ---
Exam: CT HEAD W/O IMPRESSION: No acute or focal intracranial abnormality. [facility] SITE ID: [id number]
--- NOTE | 2017-10-01 22:47 | CT Report ---
EXAM: CT HEAD EXAM DATE: 10/01/2017 10:34 PM. CLINICAL HISTORY: Fall, altered mental status. COMPARISON: None. TECHNIQUE: Multiaxial CT images were obtained from the foramen magnum to the vertex. Reformats: Coron al. IV contrast: None. In accordance with CT protocol optimization, one or more of the following dose reduction techniques w ere utilized for this exam: automated exposure control, adjustment of mA and/or KV based on patient s ize, or use of iterative reconstructive technique. FINDINGS: Parenchyma: No intraparenchymal hemorrhage. No evidence of mass, midline shift, or CT findings of inf arction. Grant-white differentiation is distinct. Extraaxial Spaces: Normal for age. No subdural or epidural collections identified. Ventricles: Normal in size and position. Sinuses and Orbits: Soft tissue density partially opacifies the right sphenoid. Other paranasal sinus es and orbits are unremarkable. Bones: No evidence of fracture or calvarial defect. Other: None. IMPRESSION: No acute or focal intracranial abnormality. [facility] Referring Provider Line: [phone] SITE ID: [id number]
--- NOTE | 2017-10-01 22:58 | CT Preliminary Report ---
Exam: CT CHEST ANGIO (PE) IMPRESSION: 1. No pulmonary embolism or acute airspace disease. 2. Mildly enlarged, inferior left axillary lymph node. 3. Cholelithiasis. [facility] SITE ID: [id number]
--- NOTE | 2017-10-01 23:01 | CT Report ---
EXAM: CT ANGIOGRAM CHEST EXAM DATE: 10/01/2017 10:30 PM. CLINICAL HISTORY: Syncope, hx of PE. COMPARISON: None. TECHNIQUE: Routine helical imaging was performed through the chest in the pulmonary arterial phase. I V Contrast: 80 mL Isovue 300. Reconstructions: Coronal 3-D MIP reconstructions.Sagittal and coronal. In accordance with CT protocol optimization, one or more of the following dose reduction techniques w ere utilized for this exam: automated exposure control, adjustment of mA and/or KV based on patient s ize, or use of iterative reconstructive technique. FINDINGS: Pulmonary Arteries: Diagnostic quality: Adequate through the segmental arteries. No evidence for acute or chronic pulmona ry emboli. RV/LV is within normal limits. There is no interventricular septal bowing. There is no reflux of cont rast material in the IVC. Lungs/Pleura: No evidence of acute airspace disease. No pleural effusion or pneumothorax. Mediastinum: Normal. No cardiac enlargement or adenopathy. Small hiatal hernia. Thoracic Aorta: Unremarkable. Upper Abdomen: Cholelithiasis. Other: Inferior left axillary 1.9 x 1.5 cm lymph node. IMPRESSION: 1. No pulmonary embolism or acute airspace disease. 2. Mildly enlarged, inferior left axillary lymph node. 3. Cholelithiasis. [facility] Referring Provider Line: [phone] SITE ID: [id number]
--- NOTE | 2017-10-01 23:02 | CT Preliminary Report ---
Exam: CT PELVIS W/O IMPRESSION: 1. No evidence of pelvis or hip fracture. 2. Mild bilateral hip degenerative changes. 3. Numerous urinary bladder stones measuring up to 2.3 cm. [facility] SITE ID: [id number]
--- NOTE | 2017-10-01 23:04 | CT Report ---
EXAM: CT BONY PELVIS WITHOUT CONTRAST EXAM DATE: 10/01/2017 10:32 PM. CLINICAL HISTORY: Fall, lower lumbar and pelvic pain. COMPARISON: None. TECHNIQUE: Thin-section axial images were acquired of the pelvis without contrast. Post-processing: C oronal and sagittal reformats. Other: None. In accordance with CT protocol optimization, one or more of the following dose reduction techniques w ere utilized for this exam: automated exposure control, adjustment of mA and/or KV based on patient s ize, or use of iterative reconstructive technique. FINDINGS: Bones: No fracture or bone lesion. Sacroiliac Joints: No widening, erosions, or sclerosis. Symphysis Pubis: Unremarkable. Right Hip: Mild joint space narrowing. Normal alignment. No loose bodies. Left Hip: Mild joint space narrowing. Normal alignment. No loose bodies. Musculature: Mild atrophy of the gluteal muscles. Pelvic Cavity: There are numerous stones within the urinary bladder measuring up to 2.3 cm. No pelvic fluid collections. Other: No lymphadenopathy. No free air or free fluid. The other visualized soft tissues are unremarka ble. IMPRESSION: 1. No evidence of pelvis or hip fracture. 2. Mild bilateral hip degenerative changes. 3. Numerous urinary bladder stones measuring up to 2.3 cm. [facility] Referring Provider Line: [phone] SITE ID: [id number]
[2017-10-02 00:58] VITALS: BP 151/81
[2017-10-02] MEDS ORDERED: ACETAMINOPHEN 500 MG TABLET PO ONE ×2 (02:20→02:28)
== END 2017-10-02 01:31 | disposition home or self-care (01) ==
LOC: EDUNIT# → ED 20:34
DX: N39.0 Urinary tract infection, site not specified (principal); R41.0 Disorientation, unspecified; R60.0 Localized edema; R53.1 Weakness; M54.6 Pain in thoracic spine; R00.0 Tachycardia, unspecified; I48.91 Unspecified atrial fibrillation; I44.30 Unspecified atrioventricular block; I10 Essential (primary) hypertension; E11.9 Type 2 diabetes mellitus without complications; Z79.84 Long term (current) use of oral hypoglycemic drugs; E78.00 Pure hypercholesterolemia, unspecified; Z87.891 Personal history of nicotine dependence; Z91.81 History of falling; Z86.711 Personal history of pulmonary embolism; B36.8 Other specified superficial mycoses
CPT/HCPCS: 36415; 70450; 71275; 72192; 80053; 81001; 82140; 83690; 83735; 83880; 84100; 84484; 85025; 87077; 87086; 87181; 93005; 96361; 96374; 99283; 99285; A9270; G0480; Q9967; 80320; 81003

== ENCOUNTER 2017-10-02 01:45 | Outpatient (CLI) | payer MEDICARE | END 2017-10-02 01:46 | disposition home or self-care (01) | LOC: EMS 01:45 | PROVIDERS: ATTEND Surgery | DX: Z74.01 Bed confinement status (principal); R41.0 Disorientation, unspecified | CPT/HCPCS: A0425; A0428 ==

== ENCOUNTER 2017-10-02 02:20 | Emergency (ER) | payer MEDICARE ==
--- NOTE | 2017-10-02 02:24 | ED Physician Documentation ---
PD HPI BACK PAIN - Stated complaint Stated Complaint: BACK PAIN - History obtained from History obtained from: Patient, EMS - History of Present Illness Timing - onset: Today, Chronic Timing - details: Still present Location: Upper Quality: Pain, Similar to prior episodes Similar symptoms before: Work up / diagnostics, Treatment Recently seen: Emergency Dept - Additional information Additional information: Patient is a 77 year old male who came to the emergency department earlier in the shift for a fall. Diagnostics at that time were within normal limits with no fractures or dislocations. patient was discharged home. While in the ambulance ride home he said he was in pain again and wanted to come back to the er. Review of Systems Constitutional: reports: Reviewed and negative Eyes: reports: Reviewed and negative Ears: reports: Reviewed and negative Nose: reports: Reviewed and negative Throat: reports: Reviewed and negative Cardiac: reports: Reviewed and negative Respiratory: reports: Reviewed and negative GI: reports: Reviewed and negative : reports: Reviewed and negative Skin: reports: Rash. denies: Abrasion (s) Musculoskeletal: reports: Back pain Neurologic: denies: Focal weakness, Numbness, Headache, Head injury Psychiatric: reports: Anxiety PD PAST MEDICAL HISTORY - Past Medical History Cardiovascular: Hypertension, High cholesterol Respiratory: None, Sleep apnea, Other Neuro: None Endocrine/Autoimmune: Type 2 diabetes GI: None : Kidney stones, Other HEENT: None Psych: Panic attacks Musculoskeletal: Osteoarthritis Derm: None - Past Surgical History Past Surgical History: Yes General: Appendectomy Derm: Skin cancer surgery - Present Medications Home Medications: Ambulatory Orders Medication Instructions Recorded Confirmed Levofloxacin [Levaquin] 750 mg PO DAILY #4 tablet 10/01/17 10/02/17 metFORMIN [Glucophage] 500 mg PO BIDWM #30 tablet 10/01/17 10/02/17 - Allergies Allergies/Adverse Reactions: Allergies Allergy/AdvReac Type Severity Reaction Status Date / Time codeine Allergy Rash Verified 10/01/17 20:45 - Social History Does the pt smoke?: No Smoking Status: Former smoker Does the pt drink ETOH?: Yes Does the pt have substance abuse?: No - Immunizations Immunizations are current?: Yes - POLST Patient has POLST: No POLST Status: Full Code PD ED PE NORMAL - General General: Alert and oriented X 3, No acute distress - HEENT HEENT: Atraumatic - Neck Neck: No bony TTP - Cardiac Cardiac: RRR, No murmur - Respiratory Respiratory: No respiratory distress - Abdomen Abdomen: Soft - Neuro Neuro: Alert and oriented X 3, No sensory deficit, Normal speech Eye Opening: Spontaneous Motor: Obeys Commands Verbal: Oriented GCS Score: 15 - Psych Psych: Normal mood PD ED PE EXPANDED - HEENT HEENT: Dry mucous membranes - Back Back: Soft tissue tenderness, Other (no ecchymosis, step offs or lacerations) - Derm Derm: Rash. No: Abrasion (s), Bruising, Laceration(s) Results - Vitals Vitals: Vital Signs - 24 hr 10/02/17 02:26 Temperature 36.4 C L Heart Rate 104 H Respiratory 16 Rate Blood Pressure 166/81 H O2 Saturation 97 Oxygen O2 Source Room air PD MEDICAL DECISION MAKING - ED course Complexity details: reviewed old records, reviewed results, re-evaluated patient , considered differential, d/w patient ED course: Patient was seen and examined at bedside. patient had already been worked up significantly. Patient was treated with tylenol for pain. Patient required no further work up and was stable for discharge with outpatient follow up. Departure - Departure Disposition: 01 Home, Self Care Clinical Impression: Back pain Condition: Good Instructions: Back Pain Relieve Follow-Up: primary,care provider [Other] - Within 3 Days Comments: Your diagnostics earlier today showed no acute injuries. You can take tylenol as needed for pain, and an occasional motrin. You will likely be in more pain tomorrow. You should follow up with your pmd for furhter evaluation and care. You may return to the emergency department for new, worsening or uncontrollable symptoms. Discharge Date/Time: 10/02/17 02:35
[2017-10-02 02:27] VITALS: BP 166/81
[2017-10-02] MEDS ORDERED: ACETAMINOPHEN 500 MG TABLET PO STA (02:33)
== END 2017-10-02 02:35 | disposition home or self-care (01) ==
LOC: EDUNIT# → ED 02:20
DX: M54.6 Pain in thoracic spine (principal); I10 Essential (primary) hypertension; Z87.891 Personal history of nicotine dependence; E11.9 Type 2 diabetes mellitus without complications
CPT/HCPCS: 99283

== ENCOUNTER 2019-03-20 08:39 | Outpatient (CLI) | payer MEDICARE | END 2019-03-20 08:40 | disposition critical access hospital (66) | LOC: EMS 08:39 | PROVIDERS: ATTEND Surgery | DX: R53.1 Weakness (principal); R60.0 Localized edema; M25.562 Pain in left knee; M25.561 Pain in right knee; W01.0XXA Fall on same level from slipping, tripping and stumbling without subsequent striking against object, initial encounter; Y92.002 Bathroom of unspecified non-institutional (private) residence as the place of occurrence of the external cause | CPT/HCPCS: A0425; A0429 ==

== ENCOUNTER 2019-03-20 09:16 | Inpatient (IN) | payer MEDICARE ==
--- NOTE | 2019-03-20 09:47 | ED Physician Documentation ---
History of Present Illness - Stated complaint Stated Complaint: WEAK - Chief complaint Chief Complaint: General - History obtained from History obtained from: Patient, EMS - History of Present Illness Timing: Today Pain level max: 8 Pain level now: 8 - Additonal information Additional information: 78-year-old male presents to the emergency department stating he fell off of the toilet today injuring his right foot and ankle. States he was too weak to get up. Stopped taking all of his medications approximately 12 to 14 months ago. No fevers. No coughing. He is morbidly obese and was taken care of by his partner. Nothing makes any of this better or worse. Did not strike his head. No loss of consciousness. No chest pain. No palpitations. No neck or back pain Review of Systems Ten Systems: 10 systems reviewed and negative Constitutional: denies: Fever, Chills Ears: denies: Ear pain Nose: denies: Rhinorrhea / runny nose, Congestion Throat: denies: Sore throat Respiratory: denies: Cough GI: denies: Abdominal Pain, Nausea, Vomiting, Diarrhea Skin: denies: Rash Musculoskeletal: denies: Neck pain, Back pain Neurologic: denies: Head injury, LOC PD PAST MEDICAL HISTORY - Past Medical History Past Medical History: Yes Cardiovascular: Hypertension, High cholesterol Respiratory: None, Sleep apnea, Other Endocrine/Autoimmune: Type 2 diabetes GI: None : Kidney stones, Other HEENT: None Psych: Panic attacks Musculoskeletal: Osteoarthritis Derm: None - Past Surgical History Past Surgical History: Yes General: Appendectomy Derm: Skin cancer surgery - Present Medications Home Medications: Ambulatory Orders Medication Instructions Recorded Confirmed No Known Home Medications 03/20/19 03/20/19 - Allergies Allergies/Adverse Reactions: Allergies Allergy/AdvReac Type Severity Reaction Status Date / Time codeine Allergy Rash Verified 03/20/19 09:27 - Social History Does the pt smoke?: No Smoking Status: Former smoker Does the pt drink ETOH?: Yes Does the pt have substance abuse?: No - Immunizations Immunizations are current?: Yes - POLST Patient has POLST: No POLST Status: Full Code PD ED PE NORMAL - Vitals Vital signs reviewed: Yes - General General: Alert and oriented X 3, No acute distress, Other (morbidly obese male) - HEENT HEENT: Moist mucous membranes, Pharynx benign - Neck Neck: Supple, no meningeal sign - Cardiac Cardiac: RRR - Respiratory Respiratory: No respiratory distress, Clear bilaterally - Abdomen Abdomen: Soft, Non tender - Derm Derm: Warm and dry - Extremities Extremities: Other (diffuse LE edema and chronic skin changes.) - Neuro Neuro: Alert and oriented X 3 - Psych Psych: Normal mood, Normal affect Results - Vitals Vitals: Vital Signs - 24 hr 03/20/19 03/20/19 03/20/19 09:22 10:34 12:08 Temperature 36 C L Heart Rate 107 H 108 H 108 H Respiratory 18 18 18 Rate Blood Pressure 160/80 H 151/78 H 147/119 H O2 Saturation 91 L 95 96 03/20/19 03/20/19 14:00 16:20 Temperature Heart Rate 103 H 102 H Respiratory 16 24 Rate Blood Pressure 149/100 H 173/158 H O2 Saturation 100 97 Oxygen O2 Source Room air - EKG (time done) 0952 Rate: Rate (enter#) (101) Rhythm: Sinus tachycardia Debary: Normal Intervals: Normal FL QRS: Normal Ischemia: Normal ST segments - Labs Labs: Laboratory Tests 03/20/19 03/20/19 03/20/19 09:49 09:49 09:49 WBC 16.8 H RBC 5.25 Hgb 15.5 Hct 47.3 MCV 90.0 MCH 29.5 MCHC 32.8 RDW 16.1 H Plt Count 137 MPV 6.2 L Neut # (Auto) 15.0 H Lymph # (Auto) 0.3 L [place] # (Auto) 1.4 H Eos # (Auto) 0.0 Baso # (Auto) 0.1 Absolute Nucleated RBC 0.01 Nucleated RBC % 0.1 Manual Slide Review Indicated WBC Morphology Platelet Estimate NORMAL (130-450,000) Platelet Morphology NORMAL APPEARANCE RBC Morph Micro Appear NORMAL APPEARANCE Sodium 135 Potassium 3.9 Chloride 98 L Carbon Dioxide 23 Anion Gap 14.0 H BUN 31 H Creatinine 2.0 H Estimated GFR (MDRD) 32 L Glucose 184 H Lactic Acid Calcium 9.6 Total Bilirubin 1.5 H AST 20 ALT < 10 L Alkaline Phosphatase 54 Troponin I < 0.04 B-Natriuretic Peptide Total Protein 7.4 Albumin 3.8 Globulin 3.6 Albumin/Globulin Ratio 1.1 Lipase 20 L Urine Color Urine Clarity Urine pH Ur Specific [place] Urine Protein Urine Glucose (UA) Urine Ketones Urine Occult Blood Urine Nitrite Urine Bilirubin Urine Urobilinogen Ur Leukocyte Esterase Urine RBC Urine WBC Urine WBC Clumps Ur Squamous Epith Cells Urine Bacteria Ur Microscopic Review Urine Culture Comments 03/20/19 03/20/19 03/20/19 09:49 15:01 16:05 WBC RBC Hgb Hct MCV MCH MCHC RDW Plt Count MPV Neut # (Auto) Lymph # (Auto) [place] # (Auto) Eos # (Auto) Baso # (Auto) Absolute Nucleated RBC Nucleated RBC % Manual Slide Review WBC Morphology Platelet Estimate Platelet Morphology RBC Morph Micro Appear Sodium Potassium Chloride Carbon Dioxide Anion Gap BUN Creatinine Estimated GFR (MDRD) Glucose Lactic Acid 1.5 Calcium Total Bilirubin AST ALT Alkaline Phosphatase Troponin I B-Natriuretic Peptide 94 Total Protein Albumin Globulin Albumin/Globulin Ratio Lipase Urine Color LT. YELLOW Urine Clarity CLOUDY Urine pH 6.0 Ur Specific [place] 1.015 Urine Protein 100 H Urine Glucose (UA) NEGATIVE Urine Ketones NEGATIVE Urine Occult Blood LARGE H Urine Nitrite NEGATIVE Urine Bilirubin NEGATIVE Urine Urobilinogen 0.2 (NORMAL) Ur Leukocyte Esterase LARGE H Urine RBC 0-5 Urine WBC >25 H Urine WBC Clumps PRESENT Ur Squamous Epith Cells NONE SEEN Urine Bacteria Few Ur Microscopic Review INDICATED Urine Culture Comments INDICATED - Rads (name of study) cxr Radiology: Prelim report reviewed, EMP read contemporaneously, See rad report (Normal single view chest. ) R ankle xray Radiology: Prelim report reviewed, EMP read contemporaneously, See rad report (no acute abnormality) R foot xray Radiology: Prelim report reviewed, EMP read contemporaneously, See rad report (no acute abnormality) PD MEDICAL DECISION MAKING - ED course Complexity details: reviewed old records, reviewed results, re-evaluated patient, considered differential, d/w patient, d/w cassandra consultant ED course: 78-year-old male presents to the emergency department is found to be si gnificantly dehydrated, has a urinary tract infection with thick pus and chunks of pus in his urine upon catheterization. No fevers. Given Rocephin IV. Also has acute renal failure and is given IV fluids. Has a significant leukocytosis of almost 17,000. He is also weak and having difficulty standing. Discussed the case with the hospitalist, Dr. Cisneros, who accepts. This document was made in part using voice recognition software. While efforts are made to proofread this document, sound alike and grammatical errors may occur. Departure - Departure Disposition: 66 [facility] DC/Xfer Clinical Impression: Dehydration, Acute renal insufficiency Right ankle sprain Qualifiers: Encounter type: initial encounter Involved ligament of ankle: unspecified ligament Qualified Code(s): S93.401A - Sprain of unspecified ligament of right ankle, initial encounter UTI (urinary tract infection) Qualifiers: Urinary tract infection type: acute cystitis Hematuria presence: without hematuria Qualified Code(s): N30.00 - Acute cystitis without hematuria Hypertension Qualifiers: Hypertension type: unspecified Qualified Code(s): I10 - Essential (primary) hypertension Diabetes Qualifiers: Diabetes mellitus type: type 2 Diabetes mellitus detention insulin use: without detention use Diabetes mellitus complication status: with unspecified complications Qualified Code(s): E11.8 - Type 2 diabetes mellitus with unspecified complications Condition: Stable
[2019-03-20 09:54] LABS: BASOPHILS # (AUTO) 0.1 10^3/uL (0.0-0.1); BASOPHILS % (AUTO) 0.5 %; HGB - HEMOGLOBIN 15.5 g/dL (14.0-18.0); LYMPHOCYTES # (AUTO) 0.3 10^3/uL (1.5-3.5); LYMPHOCYTES % (AUTO) 1.8 %; MEAN CORPUSCULAR HEMOGLOBIN 29.5 pg (27.0-31.0); MEAN CORPUSCULAR HGB CONC 32.8 g/dL (32.0-36.0); MEAN PLATELET VOLUME 6.2 fL (7.4-11.4); MONOCYTES # (AUTO) 1.4 10^3/uL (0.0-1.0); MONOCYTES % (AUTO) 8.6 %; NEUTROPHILS % (AUTO) 89.1 %; PLT - PLATELET COUNT 137 10^3/uL (130-450); RED BLOOD COUNT 5.25 10^6/uL (4.70-6.10); RED CELL DISTRIBUTION WIDTH 16.1 % (12.0-15.0); WHITE BLOOD COUNT 16.8 x10^3/uL (4.8-10.8)
[2019-03-20 10:05] LABS: ALBUMIN 3.8 g/dL (3.2-5.5); ALBUMIN/GLOBULIN RATIO 1.1 (1.0-2.2); ALKALINE PHOSPHATASE 54 IU/L (42-121); ALT ALANINE AMINOTRANSFERASE < 10 IU/L (10-60); AST ASPARTATE AMINOTRANSFERASE 20 IU/L (10-42); BILIRUBIN,TOTAL 1.5 mg/dL (0.2-1.0); BUN - BLOOD UREA NITROGEN 31 mg/dL (6-20); CALCIUM 9.6 mg/dL (8.5-10.3); CARBON DIOXIDE - CO2 23 mmol/L (21-32); CHLORIDE 98 mmol/L (101-111); GFR - MDRD 32 (>89); GLUCOSE 184 mg/dL (70-100); LIPASE 20 U/L (22-51); SODIUM 135 mmol/L (135-145); TOTAL PROTEIN 7.4 g/dL (6.7-8.2)
--- NOTE | 2019-03-20 10:06 | XRAY Report ---
Reason: Chest Pain Procedure Date: 03/20/2019 Accession Number: [id number] / [id number] Procedure: XR - Chest 1 View X-Ray CPT Code: 61330 FULL RESULT: EXAM: CHEST RADIOGRAPHY EXAM DATE: 03/20/2019 09:57 AM. CLINICAL HISTORY: Chest Pain. COMPARISON: CHEST 2 VIEW PA/LAT 04/25/2017 9:49 AM. TECHNIQUE: 1 view. FINDINGS: Lungs/Pleura: No focal opacities evident. No pleural effusion. No pneumothorax. Mediastinum: Within exam limitations, the cardiomediastinal contour is normal. Other: None. IMPRESSION: Normal single view chest. [facility]
[2019-03-20 10:18] LABS: PLATELET ESTIMATE, MANUAL NORMAL (130-450,000) (NORMAL); PLATELET MORPHOLOGY NORMAL APPEARANCE (NORMAL); RBC MORPHOLOGY (MULTIPLE) NORMAL APPEARANCE (NORMAL)
--- NOTE | 2019-03-20 11:18 | XRAY Report ---
Reason: R ankle pain s/p fall Procedure Date: 03/20/2019 Accession Number: [id number] / [id number] Procedure: XR - Foot 3 View RT CPT Code: FULL RESULT: EXAM: RIGHT FOOT RADIOGRAPHY EXAM DATE: 03/20/2019 10:37 AM. CLINICAL HISTORY: Fell from the toilet. COMPARISON: None. TECHNIQUE: 3 views. FINDINGS: Bones: Positioning is suboptimal. There are no visible fractures. Joints: Normal. No subluxations. Soft Tissues: Severe diffuse soft tissue swelling involving the calf, ankle and foot. IMPRESSION: Extensive soft tissue swelling. No visible fracture. [facility]
--- NOTE | 2019-03-20 11:19 | XRAY Report ---
Reason: R foot pain s/p fall Procedure Date: 03/20/2019 Accession Number: [id number] / [id number] Procedure: XR - Ankle 3 View RT CPT Code: FULL RESULT: EXAM: RIGHT ANKLE RADIOGRAPHY EXAM DATE: 03/20/2019 10:38 AM. CLINICAL HISTORY: R foot pain s/p fall. COMPARISON: None. TECHNIQUE: 3 views. FINDINGS: Bones: Moderate generalized osteopenia. Calcaneal spur may indicate planter fasciitis. Joints: Normal. No effusion. No subluxations. The ankle mortise is normally aligned. Soft Tissues: Diffuse soft tissue swelling. IMPRESSION: Diffuse soft tissue swelling. No visible fracture. [facility]
[2019-03-20] MEDS ORDERED: SODIUM CHLORIDE 0.9% 1,000 ML IV ONE ×3 (11:42→13:47)
[2019-03-20] MEDS ORDERED: ACETAMINOPHEN 325 MG TABLET PO STA (14:14)
[2019-03-20] MEDS ORDERED: cefTRIAXone 1 GM VIAL IVP STA (15:01)
[2019-03-20 15:18] LABS: BILIRUBIN,URINE NEGATIVE (NEGATIVE); CLARITY,URINE CLOUDY (CLEAR); GLUCOSE, URINE (UA) NEGATIVE (NEGATIVE); KETONES,URINE (UA) NEGATIVE (NEGATIVE); LEUKOCYTE ESTERASE, URINE LARGE (NEGATIVE); NITRITE,URINE NEGATIVE (NEGATIVE); OCCULT BLOOD,URINE LARGE (NEGATIVE); PROTEIN,URINE 100 mg/dL (NEGATIVE); UROBILINOGEN,URINE 0.2 (NORMAL) E.U./dL (NORMAL)
[2019-03-20 15:33] LABS: WBC CLUMPS,URINE PRESENT
[2019-03-20 15:34] LABS: BACTERIA,URINE Few /HPF (None Seen); RBC,URINE 0-5 /HPF (0-5); SQUAMOUS EPITHELIAL CELL,UR NONE SEEN (<= Few)
[2019-03-20] MEDS ORDERED: SODIUM CHLORIDE FLUSH 0.9% 10 ML SYRINGE IVP PRN (16:33)
[2019-03-20] MEDS ORDERED: ACETAMINOPHEN 325 MG TABLET PO PRN (16:33)
[2019-03-20] MEDS ORDERED: TEMAZEPAM 15 MG CAPSULE PO PRN (16:33)
--- NOTE | 2019-03-20 16:39 | HISTORY & PHYSICAL EXAMINATION ---
Chief Complaint - Chief Complaint Chief Complaint: fall, nausea, chills History of Present Illness - Admitted From Admitted From:: ED - History Obtained From Records Reviewed: yes History obtained from: patient Exam Limitations: none - History of Present Illness HPI Comment/Other: Rubén Medina (Bob) is a morbidly obese 78-year old male with a past medical history of hypertension, hyperlipidemia, diabetes mellitus type 2, obesity, sleep apnea, falls, and nocturia. He was brought in by EMS to our ED after falling from the toilet and could not get up. He states that his daily routine is that he gets himself on the toilet and when he is finished, his partner, Will will help lift him to a standing position. Today during this process, he could not support his weight and fell to the floor. He states that for the past 48 hours, he has been more fatigued, nauseated, was having dry heaves, poor appetite, and increased dysuria. He appears profoundly unkept, and in very poor health. He admits to being noncompliant with his health and stopped taking his diabetic and blood pressure medications over one year ago. He states that he does not have a primary care provider since the "last lady in [place] was rude to him". He states that each day he watches TV and does not usually leave the house. Labs show a WBC count of 16.8, H/H of 15.5/47.3, platelet count of 137, neutrophil # 15, sodium of 135, potassium of 3.9, chloride 98, BUN 31, creatinine 2.0, GFR 32, glucose 184, total bili 1.5, troponin 0.04, BNP 94with no other lab abnormalities. A Hemoglobin A1C is pending. Imaging showed no acute pneumonia, no fractures of the right ankle. Urine was obtained via straight cath, which was described as "milky", appeared to be infectious and the culture is pending. On my exam, the patient is alert, seemed to be a good historian, and complained of feeling hungry, mid- back pain, fatigue, and had a nasal drip. He denied chest pain, chest pressure, palpitations, vomiting, diarrhea, bleeding, a new rash, or a new cough. He will be admitted for further treatment of this complicated UTI, fall with syncope and hypertensive emergency. 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 Living arrangement: At home Living Situation: With spouse/s.o. (significant other, Will) Social History Notes: Recently moved here from [place], lives in [place] with his partner- Will and their [address] [facility]. He has one son who at age 35 years and a daughter named Laura who lives in [place] with several grand children. He denies the use of tobacco, alcohol or illicit drug use. He wishes to be a FULL code. - Substance History Use: Uses substance without health or social issues: NONE Abuse: Recurrent use of substance despite neg consequences: NONE Dependence: Experiences withdrawal or developed tolerances: NONE - POLST Patient has POLST: No POLST Status: Full Code Meds/Allgy - Home Medications Home Medications: Ambulatory Orders Medication Instructions Recorded Confirmed No Known Home Medications 03/20/19 03/20/19 - Allergies Allergies/Adverse Reactions: Allergies Allergy/AdvReac Type Severity Reaction Status Date / Time codeine Allergy Rash Verified 03/20/19 09:27 Review of Systems - Constitutional Constitutional: reports: Fatigue, Chills, Weakness, Poor appetite - Eyes Eyes: reports: Vision loss - Ears, Nose & Throat Ears, Nose & Throat: reports: Hearing loss, Postnasal drainage, Dental decay - Cardiovascular Cariovascular: reports: Irregular heart rate, Edema, Lightheadedness, Syncope, Exertional dyspnea, Decr. exercise tolerance, Orthopnea - Respiratory Respiratory: reports: Orthopnea, SOB at rest, SOB with exertion - Gastrointestinal Gastrointestinal: reports: Abdominal distention, Change in bowel habits, Nausea, Vomiting (also with dry heaves), Reflux/heartburn, Bloating, Poor appetite - Genitourinary Genitourinary: reports: Dysuria, Frequency, Incontinence, Nocturia - Musculoskeletal Musculoskeletal: reports: Back pain, Muscle aches, Limited range of motion, Joint swelling - Integumentary Integumentary: reports: Lesions, Dryness, Pigment changes, Hair changes, Other (BLE with long standing edema, poor skin condition and) - Neurological Neurological: reports: General weakness, Dizziness, Numbness, Memory problems, Pre-existing deficit, Abnormal gait, Incoordination - Psychiatric Psychiatric: reports: Depression, Anxiety - Endocrine Endocrine: reports: Intolerance to cold - All Other Systems All Other Systems: reports: Reviewed and negative Prior Level of Functionality: Increased debility, frequent falls, can no longer independently get up from the toilet at home. His partner has to help him, uses a urinal at night to avoid getting up. Denies the use of a walker or a cane. Exam - Vital Signs Reviewed Vital Signs: Yes Vital Signs: Vital Signs x48h Temp Pulse Resp BP Pulse Ox 03/20/19 16:20 102 H 24 173/158 H 97 03/20/19 14:00 103 H 16 149/100 H 100 03/20/19 12:08 108 H 18 147/119 H 96 03/20/19 10:34 108 H 18 151/78 H 95 03/20/19 09:22 36 C L 107 H 18 160/80 H 91 L - Physical Exam General Appearance: positive: Alert, Moderate distress Eyes Bilateral: positive: PERRL. negative: No scleral icterus (bilateral yellowing) ENT: positive: Purulent nasal drainage (nasal drip), Pharyngeal erythema, Dry mucous membranes Neck: positive: No JVD, Trachea midline, Lymphadenopathy (R), Lymphadenopathy (L) Respiratory: positive: Chest non-tender, Other (scattered crackles) Cardiovascular: positive: No gallop, Irregularly irregular, Tachycardia, Systolic murmur, Decreased pulse(s) Peripheral Pulses: positive: 1+ (femoral only) Abdomen: positive: Hepatomegaly, Abnml bowel sounds (hyperactive), Other (obese, soft) Back: positive: CVA tenderness (R), CVA tenderness (L) Skin: positive: No rash, Warm, Dry, Cyanosis, Pallor, Other (evidence of longstanding BLE vascular disease) Extremities: positive: Pedal edema, Joint swelling, Other (Pitting edema to BLEs, lack of movement due to chronic swelling from untreated DM, blood pressure) Neurologic/Psychiatric: positive: Oriented x3, CN's nml (2-12), Weakness, Sensory loss, Slurred/abnml speech (sluggish speech), Depressed mood/affect, Other (resting, central tremor) Reflexes: Bicep (R): 3+, Bicep (L): 3+ Sepsis Event Note (H) - Evaluation Current Stage of Sepsis: Sepsis - Sepsis Criteria Sepsis Criteria: Recorded Respiratory Rate greater than 20, WBC count greater than 12,000 or less than 4000, Renal: urine output less than 0.5ml/kg/hr for 2 hours or creatinine gr Conclusion/Plan - Problem List (1) Fall Conclusion/Plan: - Usual routine is that the patient's partner, Will has to lift him to a standing position after using the toilet - Today in this process, he fell to the floor - 911 was called to bring him to the ED - The patient denies a loss of consiousness - Initial injury to his right foot, ankle and low calf, improved on my exam Plan: Continue syncope work up, echo, telemetry, orthostatics if able, treat this acute illness, and PT/OT evaluation Qualifiers: Encounter type: subsequent encounter Qualified Code(s): W19.XXXD - Unspecified fall, subsequent encounter (2) Pyelonephritis Conclusion/Plan: - Complains of back pain, tenderness to bilateral CVA regions on exam - WBC count of 16.8 - Complaints of nocturia, frequency, urgency and incontinence at home - Prior history of Klebsiella oxytoca of urine in 2017 - Started on Rocephin IV in the ED - Urine culture is pending, clean catch looks infectious - Chills on exam, nausea with dry heaves for at least the past 48 hours Plan: Await culture results, bladder scans, use lidocaine prior to jimenez if he retains urine (3) Medical non-compliance Conclusion/Plan: - Patient states that he has "been fine" since stopping his blood pressure and diabetic medications - Poor quality of life, and claims that he enjoys just watching TV everyday - Has not been to a doctor for a few years, last seen in [place] - No current PCP Plan: Encourage compliance (4) Uncontrolled diabetes mellitus Conclusion/Plan: - Patient admits to not controlling blood sugars, owning no glucometer, and stopping all of his medications - Does not control his diet, and eats "what ever" he feels like eating - Evidence of poor control with the severity of this infection - Glucose 184 upon admission Plan: Await A1C results, start on nightly Lantus, SSI, and carb controlled diet Qualifiers: Diabetes mellitus type: type 2 Glycemic state: with hyperglycemia Qualified Code(s): E11.65 - Type 2 diabetes mellitus with hyperglycemia (5) Hypertensive emergency Conclusion/Plan: - Blood pressure with elevated diastolic blood pressures 100-140's - Patient admits to long-standing noncompliance with not taking his blood pre ssure medications - Echo for the AM Plan: Continue to replace fluids, PRN hydralazine IV if needed, treat acute illness (6) NANNETTE (acute kidney injury) Conclusion/Plan: - Baseline creatinine is thought to be ~1 - 2.0 upon admission - Likely caused by dehydration in the setting of acute illness - Bilateral flank pain on exam Plan: Continue to monitor labs, start NS @ 125 mL per hour, evaluate heart function via echo in the AM (7) Right ankle sprain Conclusion/Plan: - According to imaging, there is soft tissue swelling noted around the right ankle, low calf - Only slightly visually swollen on exam - Occurred during his fall earlier this morning - PT/OT ordered, possible placement for progressive weakness, acute illness - May consider duplex venous dopplers Plan: Continue to monitor, Lovenox for DVT prophylaxis Qualifiers: Encounter type: initial encounter Involved ligament of ankle: unspecified ligament Qualified Code(s): S93.401A - Sprain of unspecified ligament of right ankle, initial encounter (8) Essential hypertension Conclusion/Plan: - Blood pressure is elevated at 150-170's systolic and 100-150's diastolic - Also tachycardic with heart rates in the 100's - Denies chest pain, chest pressure or palpitations - Patient admits to noncompliance at home, and states, "I have been fine without taking all those medications" Plan: Continue to monitor blood pressure, give IV hydralazine as needed for sustained systolic blood pressure greater than 150 (9) Urinary retention Conclusion/Plan: - Patient states that he urinates in a bedside urinal several times in the night - While in the ED, the patient required a straight cath to obtain a urine sample - NANNETTE is noted, likely from dehydration and acute illness - May have been a contributing factor in this illness Plan: Insert jimenez with the use of a URO-jet prior to monitor kidney function and during this acute illness (10) Morbid obesity with BMI of 40.0-44.9, adult Conclusion/Plan: - Current BMI of 42.3 - Patient admits to medical noncompliance - Patient admits to no dietary restrictions - Has a care-youth care worker, partner, Will who prepares food Plan: Monitor daily weights, suggest weight loss program upon discharge to be ordered by imaginary PCP (11) Leg edema Conclusion/Plan: - Evidence of long-standing edema - Medical noncompliance is known Plan: SCDs, Lovenox - Lab Results Lab results reviewed: Yes Fish Bones: 03/20/19 09:49 03/20/19 09:49 - Diagnostic Imaging Results Diagnostic Imaging Results: positive: Final report reviewed Diagnostic Imaging Results Comments: EXAM: CHEST RADIOGRAPHY EXAM DATE: 03/20/2019 09:57 AM FINDINGS: Lungs/Pleura: No focal opacities evident. No pleural effusion. No pneumothorax. Mediastinum: Within exam limitations, the cardiomediastinal contour is normal. Other: None. IMPRESSION: Normal single view chest. EXAM: RIGHT ANKLE RADIOGRAPHY EXAM DATE: 03/20/2019 10:38 AM CLINICAL HISTORY: R foot pain s/p fall. FINDINGS: Bones: Moderate generalized osteopenia. Calcaneal spur may indicate planter fasciitis. Joints: Normal. No effusion. No subluxations. The ankle mortise is normally aligned. Soft Tissues: Diffuse soft tissue swelling. IMPRESSION: Diffuse soft tissue swelling. No visible fracture. EXAM: RIGHT FOOT RADIOGRAPHY EXAM DATE: 03/20/2019 10:37 AM. CLINICAL HISTORY: Fell from the toilet. FINDINGS: Bones: Positioning is suboptimal. There are no visible fractures. Joints: Normal. No subluxations. Soft Tissues: Severe diffuse soft tissue swelling involving the calf, ankle and foot. IMPRESSION: Extensive soft tissue swelling. No visible fracture. Core Measures - Anticipated LOS I expect patient to be DC'd or transferred within 96 hours.: Yes - DVT/VTE - Prophylaxis VTE/DVT Device ordered at admit?: Yes VTE/DVT Prophylaxis med ordered at admit?: Yes - Stroke - Rehab Assessment Rehab services assessment to be ordered?: Yes - AMI - Statin at Admit Aspirin Prescribed on Admit: Yes
[2019-03-20] MEDS ORDERED: LIDOCAINE 2% URO-JET 5 ML SYRINGE UR PRN (17:10)
[2019-03-20] MEDS ORDERED: hydrALAZINE INJ 20 MG/ML VIAL IVP PRN (17:34)
[2019-03-20] MEDS: SODIUM CHLORIDE 0.9% 1,000 ML IV SCH (17:44)
[2019-03-20] MEDS: SODIUM CHLORIDE FLUSH 0.9% 10 ML SYRINGE IVP SCH (17:44)
[2019-03-20 17:55] LABS: MUDS CUTOFF CONCENTRATIONS CUTOFF CONC BELOW:
[2019-03-20 18:17] LABS: AMPHETAMINE SCREEN,URINE NEGATIVE (NEGATIVE); BENZODIAZEPINES SCREEN, URINE NEGATIVE (NEGATIVE); COCAINE SCREEN URINE NEGATIVE (NEGATIVE); METHADONE SCREEN, URINE NEGATIVE (NEGATIVE); METHAMPHETAMINES SCREEN, URINE NEGATIVE (NEGATIVE); OPIATE SCREEN, URINE NEGATIVE (NEGATIVE); TRICYCLIC ANTIDEPRESSANT,URINE NEGATIVE (NEGATIVE)
[2019-03-20 18:18] LABS: OXYCODONE SCREEN, URINE NEGATIVE (NEGATIVE); PROPOXYPHENE SCREEN, URINE NEGATIVE (NEGATIVE)
[2019-03-20] MEDS: METOPROLOL SUCCINATE 25 MG TABLET PO SCH (18:25)
[2019-03-20] MEDS: HYDROcod/ACETAM 5/325 MG TABLET PO PRN (18:39)
[2019-03-20] MEDS: ENOXAPARIN 40 MG/0.4 ML SYRINGE SUBQ SCH (20:30)
[2019-03-20] MEDS: INSULIN ASPART 300 UNIT/3 ML PEN SUBQ SCH (20:30)
[2019-03-20] MEDS ORDERED: INSULIN GLARGINE 300 UNIT/3 ML PEN SUBQ SCH (21:00)
[2019-03-21] MEDS: SODIUM CHLORIDE 0.9% 1,000 ML IV SCH ×3 (01:40→20:37)
[2019-03-21] MEDS: SODIUM CHLORIDE FLUSH 0.9% 10 ML SYRINGE IVP SCH ×3 (01:43→16:38)
[2019-03-21 05:34] LABS: BASOPHILS % (AUTO) 0.3 %; EOSINOPHILS % (AUTO) 0.4 %; HGB - HEMOGLOBIN 13.3 g/dL (14.0-18.0); LYMPHOCYTES # (AUTO) 0.7 10^3/uL (1.5-3.5); LYMPHOCYTES % (AUTO) 6.2 %; MEAN CORPUSCULAR HEMOGLOBIN 30.2 pg (27.0-31.0); MEAN CORPUSCULAR HGB CONC 32.7 g/dL (32.0-36.0); MEAN CORPUSCULAR VOLUME 92.5 fL (80.0-94.0); MEAN PLATELET VOLUME 6.6 fL (7.4-11.4); MONOCYTES # (AUTO) 1.1 10^3/uL (0.0-1.0); MONOCYTES % (AUTO) 8.9 %; NEUTROPHILS # (AUTO) 9.9 10^3/uL (1.5-6.6); NEUTROPHILS % (AUTO) 84.2 %; PLT - PLATELET COUNT 118 10^3/uL (130-450); RED CELL DISTRIBUTION WIDTH 16.4 % (12.0-15.0); WHITE BLOOD COUNT 11.8 x10^3/uL (4.8-10.8)
[2019-03-21 06:05] LABS: ALBUMIN 2.8 g/dL (3.2-5.5); ALBUMIN/GLOBULIN RATIO 0.9 (1.0-2.2); ALKALINE PHOSPHATASE 44 IU/L (42-121); ALT ALANINE AMINOTRANSFERASE < 10 IU/L (10-60); AST ASPARTATE AMINOTRANSFERASE 15 IU/L (10-42); BILIRUBIN,TOTAL 0.8 mg/dL (0.2-1.0); BUN - BLOOD UREA NITROGEN 28 mg/dL (6-20); CALCIUM 8.8 mg/dL (8.5-10.3); CARBON DIOXIDE - CO2 22 mmol/L (21-32); CHLORIDE 107 mmol/L (101-111); CREATININE 1.4 mg/dL (0.6-1.2); CRP - C-REACTIVE PROTEIN 21.3 mg/dL (0-1.0); GFR - MDRD 49 (>89); GLUCOSE 106 mg/dL (70-100); PHOSPHORUS 3.5 mg/dL (2.5-4.6); SODIUM 140 mmol/L (135-145); TOTAL PROTEIN 5.9 g/dL (6.7-8.2)
[2019-03-21 06:06] LABS: HB2 TOTAL 13.6 g/dL; HEMOGLOBIN A1C 0.67 g/dL; HEMOGLOBIN A1C % 6.7 % (4.6-6.2)
[2019-03-21] MEDS: PANTOPRAZOLE 40 MG TABLET PO SCH (06:10)
[2019-03-21] MEDS ORDERED: MIN OIL/DIMETHICON/COCONUT OIL 92 GM TUBE TOP PRN (06:51)
[2019-03-21] MEDS: HYDROcod/ACETAM 5/325 MG TABLET PO PRN ×3 (08:33→22:26)
[2019-03-21] MEDS: ENOXAPARIN 40 MG/0.4 ML SYRINGE SUBQ SCH ×2 (08:33→20:37)
[2019-03-21] MEDS: METOPROLOL SUCCINATE 25 MG TABLET PO SCH (08:34)
[2019-03-21] MEDS: POLYETHYLENE GLYCOL 3350 17 GM PACKET PO SCH (08:34)
[2019-03-21] MEDS: cefTRIAXone 2 GM in SODIUM CHLORIDE 0.9% MINIBAG 100 ML IV SCH (08:37)
[2019-03-21] MEDS: INSULIN ASPART 300 UNIT/3 ML PEN SUBQ SCH ×4 (08:37→20:39)
--- NOTE | 2019-03-21 11:44 | PROVIDER PROGRESS NOTE ---
Subjective - Prog Note Date Prog Note Date: 03/21/19 Prog Note Time: 11:42 - Subjective Pt reports feeling: Improved Subjective: Que states that he feels much improved since the time of his admission. He states that his nausea better, but his appetite is still poor. He has been reluctant with nursing staff and PT to move much and is agreeable to adding Toradol for better pain control. Current Medications - Current Medications Current Medications: Active Medications: Acetaminophen (Tylenol) 650 mg PO Q4HR PRN Hydrocodone Bitart/Acetaminophen (Enderlin 5/325) 1 tab PO Q4HR PRN Enoxaparin Sodium (Lovenox) 40 mg SUBQ BID ANNTIA Fluconazole (Diflucan) 100 mg PO DAILY ANNITA Hydralazine HCl (Apresoline Inj) 10 mg IVP Q2H PRN Sodium Chloride (Normal Saline 0.9%) 1,000 mls @ 75 mls/hr IV .Q8H ANNITA Ceftriaxone Sodium 2 gm/ (Sodium Chloride) 100 mls @ 200 mls/hr IV DAILY ANNITA Insulin Aspart (Novolog) 1 - 9 unit SUBQ 0800,1200,1700,2100 ANNITA; Protocol Insulin Glargine (Lantus Solostar) 5 unit SUBQ QPM NANITA Lidocaine HCl (Xylocaine Uro-Jet 2%) 2.5 ml UR Q6H PRN Metoprolol Succinate (Toprol Xl) 50 mg PO BIDWM ANNITA Mineral Oil (Cavilon) 1 applic TOP PRN PRN Nystatin (Nystop) 1 applic TOP BID ANNITA Ondansetron HCl (Zofran Inj) 4 mg IVP Q6HR PRN Pantoprazole Sodium (Protonix) 40 mg PO QDAC ANNITA Polyethylene Glycol (Miralax) 17 gm PO DAILY ANNITA Temazepam (Restoril) 15 mg PO QPM PRN HOME meds: No Known Home Medications 03/20/19 Objective - Vital Signs/Intake & Output Reviewed Vital Signs: Yes Vital Signs: Vital Signs x48h Temp Pulse Resp BP Pulse Ox 03/21/19 08:00 36.7 C 92 18 147/91 H 92 03/21/19 05:49 36.7 C 97 16 139/93 H 93 Intake & Output: Intake & Output 03/18/19 03/19/19 03/20/19 03/21/19 23:59 23:59 23:59 23:59 Intake Total 3200 2630.833 Output Total 3800 725 Balance -600 1905.833 - Objective General Appearance: positive: No acute distress, Alert Eyes Bilateral: positive: PERRL ENT: positive: Pharynx nml, No signs of dehydration, Pharyngeal erythema Neck: positive: Thyroid nml, No JVD, Trachea midline Respiratory: positive: Chest non-tender, No respiratory distress, Other (diminished- bilaterally) Cardiovascular: positive: Regular rate & rhythm, No gallop, Systolic murmur, Decreased pulse(s) Peripheral Pulses: 1+ Radial (R), 1+ Radial (L) Abdomen: positive: Non-tender, Nml bowel sounds, Hepatomegaly, Other (rounded, obese, soft) Back: positive: Nml inspection Skin: positive: No rash, Warm, Dry, Pallor, Other (yeasty skin folds, evidence of long standing PVD, poor skin condition, cool) Extremities: positive: Pedal edema, Joint swelling, Other (BLE chronic pitting edema, no scrotal edema) Neurologic/Psychiatric: positive: Oriented x3, CN's nml (2-12), Motor nml, Sensation nml, Depressed mood/affect (flat affect) Reflexes: Bicep (R): 3+, Bicep (L): 3+ - Lab Results Fish Bones: 03/21/19 05:23 03/21/19 05:23 Other Labs: Lab Results x24hrs 03/21/19 03/21/19 03/21/19 Range/Units 08:11 07:47 05:23 WBC (4.8-10.8) x10^3/uL RBC (4.70-6.10) 10^6/uL Hgb (14.0-18.0) g/dL Hct (42.0-52.0) % MCV (80.0-94.0) fL MCH (27.0-31.0) pg MCHC (32.0-36.0) g/dL RDW (12.0-15.0) % Plt Count (130-450) 10^3/uL MPV (7.4-11.4) fL Neut # (Auto) (1.5-6.6) 10^3/uL Lymph # (Auto) (1.5-3.5) 10^3/uL Hughes # (Auto) (0.0-1.0) 10^3/uL Eos # (Auto) (0.0-0.7) 10^3/uL Baso # (Auto) (0.0-0.1) 10^3/uL Absolute Nucleated RBC x10^3/uL Nucleated RBC % /100WBC Sodium (135-145) mmol/L Potassium (3.5-5.0) mmol/L Chloride (101-111) mmol/L Carbon Dioxide (21-32) mmol/L Anion Gap (6-13) BUN (6-20) mg/dL Creatinine (0.6-1.2) mg/dL Estimated GFR (MDRD) (>89) Glucose (70-100) mg/dL POC Whole Bld Glucose 117 H 105 H (70 - 100) mg/dL Glycated Hemoglobin 6.7 H (4.6-6.2) % Estim Average Glucose 146 H (70-100) Lactic Acid (0.5-2.2) mmol/L Calcium (8.5-10.3) mg/dL Phosphorus (2.5-4.6) mg/dL Magnesium (1.7-2.8) mg/dL Total Bilirubin (0.2-1.0) mg/dL AST (10-42) IU/L ALT (10-60) IU/L Alkaline Phosphatase (42-121) IU/L C-Reactive Protein (0-1.0) mg/dL B-Natriuretic Peptide (5-100) pg/mL Total Protein (6.7-8.2) g/dL Albumin (3.2-5.5) g/dL Globulin (2.1-4.2) g/dL Albumin/Globulin Ratio (1.0-2.2) TSH (0.34-5.60) uIU/mL Urine Color Urine Clarity (CLEAR) Urine pH (5.0-7.5) PH Ur Specific [place] (1.002-1.030) Urine Protein (NEGATIVE) mg/dL Urine Glucose (UA) (NEGATIVE) mg/dL Urine Ketones (NEGATIVE) mg/dL Urine Occult Blood (NEGATIVE) Urine Nitrite (NEGATIVE) Urine Bilirubin (NEGATIVE) Urine Urobilinogen (NORMAL) E.U./dL Ur Leukocyte Esterase (NEGATIVE) Urine RBC (0-5) /HPF Urine WBC (0-3) /HPF Urine WBC Clumps Ur Squamous Epith Cells (<= Few) Urine Bacteria (None Seen) /HPF Ur Microscopic Review Urine Culture Comments Urine Opiates Screen (NEGATIVE) Ur Oxycodone Screen (NEGATIVE) Urine Methadone Screen (NEGATIVE) Ur Propoxyphene Screen (NEGATIVE) Ur Barbiturates Screen (NEGATIVE) Ur Tricyclics Screen (NEGATIVE) Ur Phencyclidine Scrn (NEGATIVE) Ur Amphetamine Screen (NEGATIVE) U Methamphetamines Scrn (NEGATIVE) U Benzodiazepines Scrn (NEGATIVE) Urine Cocaine Screen (NEGATIVE) U Cannabinoids Screen (NEGATIVE) 03/21/19 03/21/19 03/21/19 Range/Units 05:23 05:23 05:23 WBC (4.8-10.8) x10^3/uL RBC (4.70-6.10) 10^6/uL Hgb (14.0-18.0) g/dL Hct (42.0-52.0) % MCV (80.0-94.0) fL MCH (27.0-31.0) pg MCHC (32.0-36.0) g/dL RDW (12.0-15.0) % Plt Count (130-450) 10^3/uL MPV (7.4-11.4) fL Neut # (Auto) (1.5-6.6) 10^3/uL Lymph # (Auto) (1.5-3.5) 10^3/uL Hughes # (Auto) (0.0-1.0) 10^3/uL Eos # (Auto) (0.0-0.7) 10^3/uL Baso # (Auto) (0.0-0.1) 10^3/uL Absolute Nucleated RBC x10^3/uL Nucleated RBC % /100WBC Sodium (135-145) mmol/L Potassium (3.5-5.0) mmol/L Chloride (101-111) mmol/L Carbon Dioxide (21-32) mmol/L Anion Gap (6-13) BUN (6-20) mg/dL Creatinine (0.6-1.2) mg/dL Estimated GFR (MDRD) (>89) Glucose (70-100) mg/dL POC Whole Bld Glucose (70 - 100) mg/dL Glycated Hemoglobin (4.6-6.2) % Estim Average Glucose (70-100) Lactic Acid 0.9 (0.5-2.2) mmol/L Calcium (8.5-10.3) mg/dL Phosphorus (2.5-4.6) mg/dL Magnesium (1.7-2.8) mg/dL Total Bilirubin (0.2-1.0) mg/dL AST (10-42) IU/L ALT (10-60) IU/L Alkaline Phosphatase (42-121) IU/L C-Reactive Protein (0-1.0) mg/dL B-Natriuretic Peptide 308 H (5-100) pg/mL Total Protein (6.7-8.2) g/dL Albumin (3.2-5.5) g/dL Globulin (2.1-4.2) g/dL Albumin/Globulin Ratio (1.0-2.2) TSH 0.99 (0.34-5.60) uIU/mL Urine Color Urine Clarity (CLEAR) Urine pH (5.0-7.5) PH Ur Specific [place] (1.002-1.030) Urine Protein (NEGATIVE) mg/dL Urine Glucose (UA) (NEGATIVE) mg/dL Urine Ketones (NEGATIVE) mg/dL Urine Occult Blood (NEGATIVE) Urine Nitrite (NEGATIVE) Urine Bilirubin (NEGATIVE) Urine Urobilinogen (NORMAL) E.U./dL Ur Leukocyte Esterase (NEGATIVE) Urine RBC (0-5) /HPF Urine WBC (0-3) /HPF Urine WBC Clumps Ur Squamous Epith Cells (<= Few) Urine Bacteria (None Seen) /HPF Ur Microscopic Review Urine Culture Comments Urine Opiates Screen (NEGATIVE) Ur Oxycodone Screen (NEGATIVE) Urine Methadone Screen (NEGATIVE) Ur Propoxyphene Screen (NEGATIVE) Ur Barbiturates Screen (NEGATIVE) Ur Tricyclics Screen (NEGATIVE) Ur Phencyclidine Scrn (NEGATIVE) Ur Amphetamine Screen (NEGATIVE) U Methamphetamines Scrn (NEGATIVE) U Benzodiazepines Scrn (NEGATIVE) Urine Cocaine Screen (NEGATIVE) U Cannabinoids Screen (NEGATIVE) 03/21/19 03/21/19 03/20/19 Range/Units 05:23 05:23 20:29 WBC 11.8 H (4.8-10.8) x10^3/uL RBC 4.40 L (4.70-6.10) 10^6/uL Hgb 13.3 L (14.0-18.0) g/dL Hct 40.7 L (42.0-52.0) % MCV 92.5 (80.0-94.0) fL MCH 30.2 (27.0-31.0) pg MCHC 32.7 (32.0-36.0) g/dL RDW 16.4 H (12.0-15.0) % Plt Count 118 L (130-450) 10^3/uL MPV 6.6 L (7.4-11.4) fL Neut # (Auto) 9.9 H (1.5-6.6) 10^3/uL Lymph # (Auto) 0.7 L (1.5-3.5) 10^3/uL Hughes # (Auto) 1.1 H (0.0-1.0) 10^3/uL Eos # (Auto) 0.0 (0.0-0.7) 10^3/uL Baso # (Auto) 0.0 (0.0-0.1) 10^3/uL Absolute Nucleated RBC 0.02 x10^3/uL Nucleated RBC % 0.2 /100WBC Sodium 140 (135-145) mmol/L Potassium 3.9 (3.5-5.0) mmol/L Chloride 107 (101-111) mmol/L Carbon Dioxide 22 (21-32) mmol/L Anion Gap 11.0 (6-13) BUN 28 H (6-20) mg/dL Creatinine 1.4 H (0.6-1.2) mg/dL Estimated GFR (MDRD) 49 L (>89) Glucose 106 H (70-100) mg/dL POC Whole Bld Glucose 143 H (70 - 100) mg/dL Glycated Hemoglobin (4.6-6.2) % Estim Average Glucose (70-100) Lactic Acid (0.5-2.2) mmol/L Calcium 8.8 (8.5-10.3) mg/dL Phosphorus 3.5 (2.5-4.6) mg/dL Magnesium 2.0 (1.7-2.8) mg/dL Total Bilirubin 0.8 (0.2-1.0) mg/dL AST 15 (10-42) IU/L ALT < 10 L (10-60) IU/L Alkaline Phosphatase 44 (42-121) IU/L C-Reactive Protein 21.3 H (0-1.0) mg/dL B-Natriuretic Peptide (5-100) pg/mL Total Protein 5.9 L (6.7-8.2) g/dL Albumin 2.8 L (3.2-5.5) g/dL Globulin 3.1 (2.1-4.2) g/dL Albumin/Globulin Ratio 0.9 L (1.0-2.2) TSH (0.34-5.60) uIU/mL Urine Color Urine Clarity (CLEAR) Urine pH (5.0-7.5) PH Ur Specific [place] (1.002-1.030) Urine Protein (NEGATIVE) mg/dL Urine Glucose (UA) (NEGATIVE) mg/dL Urine Ketones (NEGATIVE) mg/dL Urine Occult Blood (NEGATIVE) Urine Nitrite (NEGATIVE) Urine Bilirubin (NEGATIVE) Urine Urobilinogen (NORMAL) E.U./dL Ur Leukocyte Esterase (NEGATIVE) Urine RBC (0-5) /HPF Urine WBC (0-3) /HPF Urine WBC Clumps Ur Squamous Epith Cells (<= Few) Urine Bacteria (None Seen) /HPF Ur Microscopic Review Urine Culture Comments Urine Opiates Screen (NEGATIVE) Ur Oxycodone Screen (NEGATIVE) Urine Methadone Screen (NEGATIVE) Ur Propoxyphene Screen (NEGATIVE) Ur Barbiturates Screen (NEGATIVE) Ur Tricyclics Screen (NEGATIVE) Ur Phencyclidine Scrn (NEGATIVE) Ur Amphetamine Screen (NEGATIVE) U Methamphetamines Scrn (NEGATIVE) U Benzodiazepines Scrn (NEGATIVE) Urine Cocaine Screen (NEGATIVE) U Cannabinoids Screen (NEGATIVE) 03/20/19 03/20/19 03/20/19 Range/Units 17:43 16:05 15:01 WBC (4.8-10.8) x10^3/uL RBC (4.70-6.10) 10^6/uL Hgb (14.0-18.0) g/dL Hct (42.0-52.0) % MCV (80.0-94.0) fL MCH (27.0-31.0) pg MCHC (32.0-36.0) g/dL RDW (12.0-15.0) % Plt Count (130-450) 10^3/uL MPV (7.4-11.4) fL Neut # (Auto) (1.5-6.6) 10^3/uL Lymph # (Auto) (1.5-3.5) 10^3/uL Hughes # (Auto) (0.0-1.0) 10^3/uL Eos # (Auto) (0.0-0.7) 10^3/uL Baso # (Auto) (0.0-0.1) 10^3/uL Absolute Nucleated RBC x10^3/uL Nucleated RBC % /100WBC Sodium (135-145) mmol/L Potassium (3.5-5.0) mmol/L Chloride (101-111) mmol/L Carbon Dioxide (21-32) mmol/L Anion Gap (6-13) BUN (6-20) mg/dL Creatinine (0.6-1.2) mg/dL Estimated GFR (MDRD) (>89) Glucose (70-100) mg/dL POC Whole Bld Glucose 126 H (70 - 100) mg/dL Glycated Hemoglobin (4.6-6.2) % Estim Average Glucose (70-100) Lactic Acid 1.5 (0.5-2.2) mmol/L Calcium (8.5-10.3) mg/dL Phosphorus (2.5-4.6) mg/dL Magnesium (1.7-2.8) mg/dL Total Bilirubin (0.2-1.0) mg/dL AST (10-42) IU/L ALT (10-60) IU/L Alkaline Phosphatase (42-121) IU/L C-Reactive Protein (0-1.0) mg/dL B-Natriuretic Peptide (5-100) pg/mL Total Protein (6.7-8.2) g/dL Albumin (3.2-5.5) g/dL Globulin (2.1-4.2) g/dL Albumin/Globulin Ratio (1.0-2.2) TSH (0.34-5.60) uIU/mL Urine Color Urine Clarity (CLEAR) Urine pH (5.0-7.5) PH Ur Specific [place] (1.002-1.030) Urine Protein (NEGATIVE) mg/dL Urine Glucose (UA) (NEGATIVE) mg/dL Urine Ketones (NEGATIVE) mg/dL Urine Occult Blood (NEGATIVE) Urine Nitrite (NEGATIVE) Urine Bilirubin (NEGATIVE) Urine Urobilinogen (NORMAL) E.U./dL Ur Leukocyte Esterase (NEGATIVE) Urine RBC (0-5) /HPF Urine WBC (0-3) /HPF Urine WBC Clumps Ur Squamous Epith Cells (<= Few) Urine Bacteria (None Seen) /HPF Ur Microscopic Review Urine Culture Comments Urine Opiates Screen NEGATIVE (NEGATIVE) Ur Oxycodone Screen NEGATIVE (NEGATIVE) Urine Methadone Screen NEGATIVE (NEGATIVE) Ur Propoxyphene Screen NEGATIVE (NEGATIVE) Ur Barbiturates Screen NEGATIVE (NEGATIVE) Ur Tricyclics Screen NEGATIVE (NEGATIVE) Ur Phencyclidine Scrn NEGATIVE (NEGATIVE) Ur Amphetamine Screen NEGATIVE (NEGATIVE) U Methamphetamines Scrn NEGATIVE (NEGATIVE) U Benzodiazepines Scrn NEGATIVE (NEGATIVE) Urine Cocaine Screen NEGATIVE (NEGATIVE) U Cannabinoids Screen NEGATIVE (NEGATIVE) 03/20/19 Range/Units 15:01 WBC (4.8-10.8) x10^3/uL RBC (4.70-6.10) 10^6/uL Hgb (14.0-18.0) g/dL Hct (42.0-52.0) % MCV (80.0-94.0) fL MCH (27.0-31.0) pg MCHC (32.0-36.0) g/dL RDW (12.0-15.0) % Plt Count (130-450) 10^3/uL MPV (7.4-11.4) fL Neut # (Auto) (1.5-6.6) 10^3/uL Lymph # (Auto) (1.5-3.5) 10^3/uL Hughes # (Auto) (0.0-1.0) 10^3/uL Eos # (Auto) (0.0-0.7) 10^3/uL Baso # (Auto) (0.0-0.1) 10^3/uL Absolute Nucleated RBC x10^3/uL Nucleated RBC % /100WBC Sodium (135-145) mmol/L Potassium (3.5-5.0) mmol/L Chloride (101-111) mmol/L Carbon Dioxide (21-32) mmol/L Anion Gap (6-13) BUN (6-20) mg/dL Creatinine (0.6-1.2) mg/dL Estimated GFR (MDRD) (>89) Glucose (70-100) mg/dL POC Whole Bld Glucose (70 - 100) mg/dL Glycated Hemoglobin (4.6-6.2) % Estim Average Glucose (70-100) Lactic Acid (0.5-2.2) mmol/L Calcium (8.5-10.3) mg/dL Phosphorus (2.5-4.6) mg/dL Magnesium (1.7-2.8) mg/dL Total Bilirubin (0.2-1.0) mg/dL AST (10-42) IU/L ALT (10-60) IU/L Alkaline Phosphatase (42-121) IU/L C-Reactive Protein (0-1.0) mg/dL B-Natriuretic Peptide (5-100) pg/mL Total Protein (6.7-8.2) g/dL Albumin (3.2-5.5) g/dL Globulin (2.1-4.2) g/dL Albumin/Globulin Ratio (1.0-2.2) TSH (0.34-5.60) uIU/mL Urine Color LT. YELLOW Urine Clarity CLOUDY (CLEAR) Urine pH 6.0 (5.0-7.5) PH Ur Specific [place] 1.015 (1.002-1.030) Urine Protein 100 H (NEGATIVE) mg/dL Urine Glucose (UA) NEGATIVE (NEGATIVE) mg/dL Urine Ketones NEGATIVE (NEGATIVE) mg/dL Urine Occult Blood LARGE H (NEGATIVE) Urine Nitrite NEGATIVE (NEGATIVE) Urine Bilirubin NEGATIVE (NEGATIVE) Urine Urobilinogen 0.2 (NORMAL) (NORMAL) E.U./dL Ur Leukocyte Esterase LARGE H (NEGATIVE) Urine RBC 0-5 (0-5) /HPF Urine WBC >25 H (0-3) /HPF Urine WBC Clumps PRESENT Ur Squamous Epith Cells NONE SEEN (<= Few) Urine Bacteria Few (None Seen) /HPF Ur Microscopic Review INDICATED Urine Culture Comments INDICATED Urine Opiates Screen (NEGATIVE) Ur Oxycodone Screen (NEGATIVE) Urine Methadone Screen (NEGATIVE) Ur Propoxyphene Screen (NEGATIVE) Ur Barbiturates Screen (NEGATIVE) Ur Tricyclics Screen (NEGATIVE) Ur Phencyclidine Scrn (NEGATIVE) Ur Amphetamine Screen (NEGATIVE) U Methamphetamines Scrn (NEGATIVE) U Benzodiazepines Scrn (NEGATIVE) Urine Cocaine Screen (NEGATIVE) U Cannabinoids Screen (NEGATIVE) ABX Reporting Has patient been on IV antibiotics over the past 48 hours?: Yes Sepsis Event Note (H) - Evaluation Current Stage of Sepsis: Ruled out Assessment/Plan - Problem List (1) Pyelonephritis Impression: - Complains of back pain, tenderness to bilateral CVA regions on exam- improved today - WBC count of 16.8, now 11.8 - Complaints of nocturia, frequency, urgency and incontinence at home - Prior history of Klebsiella oxytoca of urine in 2017 - Continues on Rocephin IV - Urine culture shows beta hemolytic strep group B - Chills on exam, nausea with dry heaves for at least the past 48 hours prior to admission, now continues to have a poor appetite, but nausea has resolved Plan: Continue indwelling jimenez, continue Rocephin (2) NANNETTE (acute kidney injury) Impression: - Baseline creatinine is thought to be ~1 - 2.0 upon admission, now improved at 1.4 - Likely caused by dehydration in the setting of acute illness - Bilateral flank pain on exam- improved today - IVFs reduced from 125 to 75 mL per hour to prevent overload - BNP elevated at 308 Plan: Continue to monitor labs, continue NS @ 75 mL per hour, await echo resul ts to evaluate heart function (3) Fall Impression: - Usual routine is that the patient's partner, Will has to lift him to a standing position after using the toilet - Today in this process, he fell to the floor - 911 was called to bring him to the ED - The patient denies a loss of consciousness - Initial injury to his right foot, ankle and low calf, improved on my exam - Now with left knee discomfort- not more swollen - Grimaces during exam with any requests of moving, per nursing, the patient act painful all over his body regardless of the region Plan: Continue syncope work up, await echo, telemetry, orthostatics if able, treat this acute illness, and PT/OT evaluation later today Qualifiers: Encounter type: subsequent encounter Qualified Code(s): W19.XXXD - Unspecified fall, subsequent encounter (4) Uncontrolled diabetes mellitus Impression: - Patient admits to not controlling blood sugars, owning no glucometer, and stopping all of his medications - Does not control his diet, and eats "what ever" he feels like eating - Evidence of poor control with the severity of this infection - Glucose 184 upon admission, now 105 on early AM blood draw - hemoglobin A1C is 6.7% - Lantus reduced from 10 to 5 units to prevent hypoglycemia Plan: Reduced nightly Lantus, SSI, and carb controlled diet Qualifiers: Diabetes mellitus type: type 2 Glycemic state: with hyperglycemia Qual ified Code(s): E11.65 - Type 2 diabetes mellitus with hyperglycemia (5) Right ankle sprain Impression: - According to imaging, there is soft tissue swelling noted around the right ankle, low calf - Only slightly visually swollen on exam - Occurred during his fall earlier this morning - PT/OT, possible placement for progressive weakness, acute illness - Today PT does recommend SNF placement upon discharge - Adding Toradol PRN IV for uncontrolled pain Plan: Continue to monitor, Lovenox for DVT prophylaxis Qualifiers: Encounter type: initial encounter Involved ligament of ankle: unspecified ligament Qualified Code(s): S93.401A - Sprain of unspecified ligament of right ankle, initial encounter (6) Essential hypertension Impression: - Blood pressure is elevated at 147/91 today - Also tachycardic with heart rates in the 90-100's - Denies chest pain, chest pressure or palpitations - Patient admits to noncompliance at home, and states, "I have been fine without taking all those medications" - Increased metoprolol succinate from 25 to 50 mg BID Plan: Continue to monitor blood pressure, give IV hydralazine as needed for sustained systolic blood pressure greater than 150, continue on telemetry, continue metoprolol (7) Urinary retention Impression: - Patient states that he urinates in a bedside urinal several times in the night - While in the ED, the patient required a straight cath to obtain a urine sample - NANNETTE is noted, likely from dehydration and acute illness- improved today - May have been a contributing factor in this illness - Suspect this to be a longstanding problem - Consider starting Flomax to be used at home Plan: Continue indwelling jimenez, monitor kidney function during this acute illness (8) Morbid obesity with BMI of 40.0-44.9, adult Impression: - Current BMI of 43.1 - Patient admits to medical noncompliance - Patient admits to no dietary restrictions - 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, 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, Will who prepares food Plan: Monitor daily weights, suggest weight loss program upon discharge to be ordered by imaginary PCP (9) Leg edema Impression: - Evidence of long-standing edema - Medical noncompliance is known - SCD are too uncomfortable for him, TEDs would not help with the condition of his skin - Wound care is ordered for poor skin condition and possible debridement options Plan: Await wound care consult, Luz Elena (10) Medical non-compliance Impression: - Patient states that he has "been fine" since stopping his blood pressure and diabetic medications - Poor quality of life, and claims that he enjoys just watching TV everyday - Has not been to a doctor for a few years, last seen in [place] - No current PCP, Amado Zuniga was his last established provider Plan: Encourage compliance
[2019-03-21] MEDS: FLUCONAZOLE 100 MG TABLET PO SCH (13:10)
[2019-03-21] MEDS: NYSTATIN POWDER 15 GM TOP SCH ×2 (13:12→20:38)
[2019-03-21] MEDS ORDERED: KETOROLAC 30 MG/ML VIAL IVP PRN (13:59)
[2019-03-21] MEDS: METOPROLOL SUCCINATE 50 MG TABLET PO SCH (17:57)
[2019-03-21] MEDS: INSULIN GLARGINE 300 UNIT/3 ML PEN SUBQ SCH (20:38)
[2019-03-22] MEDS: SODIUM CHLORIDE FLUSH 0.9% 10 ML SYRINGE IVP SCH ×3 (00:47→17:42)
[2019-03-22 05:29] LABS: BASOPHILS % (AUTO) 0.2 %; EOSINOPHILS # (AUTO) 0.2 10^3/uL (0.0-0.7); EOSINOPHILS % (AUTO) 1.7 %; HGB - HEMOGLOBIN 12.9 g/dL (14.0-18.0); LYMPHOCYTES # (AUTO) 0.9 10^3/uL (1.5-3.5); LYMPHOCYTES % (AUTO) 9.5 %; MEAN CORPUSCULAR HEMOGLOBIN 30.4 pg (27.0-31.0); MEAN CORPUSCULAR HGB CONC 33.4 g/dL (32.0-36.0); MEAN CORPUSCULAR VOLUME 91.1 fL (80.0-94.0); MEAN PLATELET VOLUME 6.7 fL (7.4-11.4); MONOCYTES # (AUTO) 0.7 10^3/uL (0.0-1.0); NEUTROPHILS # (AUTO) 7.5 10^3/uL (1.5-6.6); NEUTROPHILS % (AUTO) 80.6 %; PLT - PLATELET COUNT 115 10^3/uL (130-450); RED BLOOD COUNT 4.26 10^6/uL (4.70-6.10); RED CELL DISTRIBUTION WIDTH 16.4 % (12.0-15.0); WHITE BLOOD COUNT 9.3 x10^3/uL (4.8-10.8)
[2019-03-22 05:38] LABS: ALBUMIN 2.7 g/dL (3.2-5.5); ALBUMIN/GLOBULIN RATIO 0.8 (1.0-2.2); ALKALINE PHOSPHATASE 47 IU/L (42-121); ALT ALANINE AMINOTRANSFERASE < 10 IU/L (10-60); AST ASPARTATE AMINOTRANSFERASE 14 IU/L (10-42); BILIRUBIN,TOTAL 0.4 mg/dL (0.2-1.0); BUN - BLOOD UREA NITROGEN 26 mg/dL (6-20); CALCIUM 8.8 mg/dL (8.5-10.3); CARBON DIOXIDE - CO2 22 mmol/L (21-32); CHLORIDE 105 mmol/L (101-111); CREATININE 1.3 mg/dL (0.6-1.2); GFR - MDRD 53 (>89); GLUCOSE 87 mg/dL (70-100); SODIUM 137 mmol/L (135-145)
[2019-03-22] MEDS: PANTOPRAZOLE 40 MG TABLET PO SCH (06:52)
[2019-03-22] MEDS: cefTRIAXone 2 GM in SODIUM CHLORIDE 0.9% MINIBAG 100 ML IV SCH ×2 (08:46→10:43)
[2019-03-22] MEDS: METOPROLOL SUCCINATE 50 MG TABLET PO SCH ×2 (08:48→17:43)
[2019-03-22] MEDS: INSULIN ASPART 300 UNIT/3 ML PEN SUBQ SCH ×4 (09:12→22:13)
[2019-03-22] MEDS: SACCHAROMYCES BOULARDII 250 MG CAPSULE PO SCH ×2 (10:31→17:43)
[2019-03-22] MEDS: FLUCONAZOLE 100 MG TABLET PO SCH (10:31)
[2019-03-22] MEDS: ENOXAPARIN 40 MG/0.4 ML SYRINGE SUBQ SCH ×2 (10:31→22:14)
[2019-03-22] MEDS: POLYETHYLENE GLYCOL 3350 17 GM PACKET PO SCH (10:31)
[2019-03-22] MEDS: NYSTATIN POWDER 15 GM TOP SCH ×2 (10:33→22:12)
[2019-03-22] MEDS: KETOROLAC 15 MG/ML VIAL IVP PRN ×2 (10:38→17:42)
[2019-03-22] MEDS: HYDROcod/ACETAM 5/325 MG TABLET PO PRN ×4 (10:38→22:12)
[2019-03-22] MEDS: SODIUM CHLORIDE 0.9% 1,000 ML IV SCH (10:39)
--- NOTE | 2019-03-22 14:56 | PROVIDER PROGRESS NOTE ---
Subjective - Prog Note Date Prog Note Date: 03/22/19 - Subjective Pt reports feeling: No change Subjective: pt report he still stay in the bed, did not move out the bed, and complain of back pain. Also pt complain he had lower bilateral extremities edema and swelling. pt denies fever, chill, cough, shortness of breath. Current Medications - Current Medications Current Medications: Active Medications Acetaminophen (Tylenol) 650 mg PO Q4HR PRN PRN Reason: Pain 1 to 4 Last Admin: 03/21/19 05:29 Dose: 650 mg Hydrocodone Bitart/Acetaminophen ([place] 5/325) 1 tab PO Q4HR PRN PRN Reason: Pain 5 to 7 Last Admin: 03/22/19 14:45 Dose: 1 tab Enoxaparin Sodium (Lovenox) 40 mg SUBQ BID [facility] Last Admin: 03/22/19 10:31 Dose: 40 mg Fluconazole (Diflucan) 100 mg PO DAILY [facility] Last Admin: 03/22/19 10:31 Dose: 100 mg Hydralazine HCl (Apresoline Inj) 10 mg IVP Q2H PRN PRN Reason: Hypertensive Emergency Ceftriaxone Sodium 2 gm/ (Sodium Chloride) 100 mls @ 200 mls/hr IV DAILY [facility] Last Admin: 03/22/19 10:43 Dose: Not Given Sodium Chloride (Normal Saline 0.9%) 1,000 mls @ 75 mls/hr IV [id number] [facility] Last Admin: 03/22/19 10:39 Dose: 75 mls/hr Insulin Aspart (Novolog) 1 - 9 unit SUBQ 0800,1200,1700,2100 [facility]; Protocol Last Admin: 03/22/19 12:08 Dose: Not Given Insulin Glargine (Lantus Solostar) 5 unit SUBQ QPM [facility] Last Admin: 03/21/19 20:38 Dose: 5 unit Ketorolac Tromethamine (Toradol Inj (15mg)) 15 mg IVP Q6H PRN PRN Reason: PAIN Stop: 03/26/19 20:59 Last Admin: 03/22/19 10:38 Dose: 15 mg Lidocaine HCl (Xylocaine Uro-Jet 2%) 2.5 ml UR Q6H PRN PRN Reason: PAIN Last Admin: 03/20/19 19:02 Dose: 2.5 ml Metoprolol Succinate (Toprol Xl) 50 mg PO BIDWM [facility] Last Admin: 03/22/19 08:48 Dose: 50 mg Mineral Oil (Cavilon) 1 applic TOP PRN PRN PRN Reason: Skin Care Nystatin (Nystop) 1 applic TOP BID [facility] Last Admin: 03/22/19 10:33 Dose: 1 applic Ondansetron HCl (Zofran Inj) 4 mg IVP Q6HR PRN PRN Reason: Nausea / Vomiting Pantoprazole Sodium (Protonix) 40 mg PO QDAC [facility] Last Admin: 03/22/19 06:52 Dose: 40 mg Polyethylene Glycol (Miralax) 17 gm PO DAILY [facility] Last Admin: 03/22/19 10:31 Dose: 17 gm Saccharomyces Boulardii (Florastor) 250 mg PO BIDWM [facility] Last Admin: 03/22/19 10:31 Dose: 250 mg Sodium Chloride (Normal Saline Flush 0.9%) 10 ml IVP PRN PRN PRN Reason: NEEDED PER PROVIDER ORDERS Sodium Chloride (Normal Saline Flush 0.9%) 10 ml IVP 0100,0900,1700 [facility] Last Admin: 03/22/19 09:13 Dose: Not Given Tamsulosin HCl (Flomax) 0.4 mg PO DAILY [facility] Temazepam (Restoril) 15 mg PO QPM PRN PRN Reason: Insomnia No Known Home Medications 03/20/19 Objective - Vital Signs/Intake & Output Reviewed Vital Signs: Yes Vital Signs: Vital Signs x48h Temp Pulse Resp BP Pulse Ox 03/22/19 13:25 36.7 C 81 18 108/56 L 94 03/22/19 08:05 36.6 C 88 20 151/73 H 95 Intake & Output: Intake & Output 03/19/19 03/20/19 03/21/19 03/22/19 23:59 23:59 23:59 23:59 Intake Total 3200 4350.833 1480 Output Total 3800 1175 850 Balance -600 3175.833 630 - Objective General Appearance: positive: No acute distress, Alert. negative: Lethargic Eyes Bilateral: positive: Normal inspection, PERRL, No lid inflammation, Conjunctivae nml ENT: positive: ENT inspection nml, Pharynx nml, No signs of dehydration. negative: Purulent nasal drainage, Pharyngeal erythema, Oral lesions Neck: positive: Nml inspection, Thyroid nml, No JVD, Trachea midline. negative: Thyromegaly, Lymphadenopathy (R), Lymphadenopathy (L), Stiff neck, Swelling/bruising, Tracheal deviation Respiratory: positive: Chest non-tender, No respiratory distress, Breath sounds nml. negative: Wheezes, Rales, Rhonchi Cardiovascular: positive: Regular rate & rhythm, No murmur, No gallop. negative: Irregularly irregular, Extrasystoles, Tachycardia, Bradycardia, JVD present, Systolic murmur, Diastolic murmur Peripheral Pulses: 2+ Radial (R), 2+ Radial (L) Abdomen: positive: Non-tender, Nml bowel sounds. negative: Tenderness, Guarding, Rebound Back: positive: Nml inspection. negative: CVA tenderness (R), CVA tenderness (L) Skin: positive: Warm, Dry, Skin rash. negative: Cyanosis, Diaphoresis, Pallor Extremities: negative: Calf tenderness, Daniel's sign/cords Neurologic/Psychiatric: positive: Oriented x3, Mood/affect nml. negative: Weakness, Sensory loss, Facial droop, Slurred/abnml speech, Depressed mood/affect - Lab Results Fish Bones: 03/22/19 04:43 03/22/19 04:43 Other Labs: Lab Results x24hrs 03/22/19 03/22/19 03/22/19 Range/Units 11:30 07:55 04:43 WBC (4.8-10.8) x10^3/uL RBC (4.70-6.10) 10^6/uL Hgb (14.0-18.0) g/dL Hct (42.0-52.0) % MCV (80.0-94.0) fL MCH (27.0-31.0) pg MCHC (32.0-36.0) g/dL RDW (12.0-15.0) % Plt Count (130-450) 10^3/uL MPV (7.4-11.4) fL Neut # (Auto) (1.5-6.6) 10^3/uL Lymph # (Auto) (1.5-3.5) 10^3/uL [place] # (Auto) (0.0-1.0) 10^3/uL Eos # (Auto) (0.0-0.7) 10^3/uL Baso # (Auto) (0.0-0.1) 10^3/uL Absolute Nucleated RBC x10^3/uL Nucleated RBC % /100WBC Sodium 137 (135-145) mmol/L Potassium 3.6 (3.5-5.0) mmol/L Chloride 105 (101-111) mmol/L Carbon Dioxide 22 (21-32) mmol/L Anion Gap 10.0 (6-13) BUN 26 H (6-20) mg/dL Creatinine 1.3 H (0.6-1.2) mg/dL Estimated GFR (MDRD) 53 L (>89) Glucose 87 (70-100) mg/dL POC Whole Bld Glucose 118 H 85 (70 - 100) mg/dL Calcium 8.8 (8.5-10.3) mg/dL Total Bilirubin 0.4 (0.2-1.0) mg/dL AST 14 (10-42) IU/L ALT < 10 L (10-60) IU/L Alkaline Phosphatase 47 (42-121) IU/L Total Protein 6.0 L (6.7-8.2) g/dL Albumin 2.7 L (3.2-5.5) g/dL Globulin 3.3 (2.1-4.2) g/dL Albumin/Globulin Ratio 0.8 L (1.0-2.2) 03/22/19 03/21/19 03/21/19 Range/Units 04:43 20:37 16:36 WBC 9.3 (4.8-10.8) x10^3/uL RBC 4.26 L (4.70-6.10) 10^6/uL Hgb 12.9 L (14.0-18.0) g/dL Hct 38.8 L (42.0-52.0) % MCV 91.1 (80.0-94.0) fL MCH 30.4 (27.0-31.0) pg MCHC 33.4 (32.0-36.0) g/dL RDW 16.4 H (12.0-15.0) % Plt Count 115 L (130-450) 10^3/uL MPV 6.7 L (7.4-11.4) fL Neut # (Auto) 7.5 H (1.5-6.6) 10^3/uL Lymph # (Auto) 0.9 L (1.5-3.5) 10^3/uL [place] # (Auto) 0.7 (0.0-1.0) 10^3/uL Eos # (Auto) 0.2 (0.0-0.7) 10^3/uL Baso # (Auto) 0.0 (0.0-0.1) 10^3/uL Absolute Nucleated RBC 0.00 x10^3/uL Nucleated RBC % 0.0 /100WBC Sodium (135-145) mmol/L Potassium (3.5-5.0) mmol/L Chloride (101-111) mmol/L Carbon Dioxide (21-32) mmol/L Anion Gap (6-13) BUN (6-20) mg/dL Creatinine (0.6-1.2) mg/dL Estimated GFR (MDRD) (>89) Glucose (70-100) mg/dL POC Whole Bld Glucose 143 H 112 H (70 - 100) mg/dL Calcium (8.5-10.3) mg/dL Total Bilirubin (0.2-1.0) mg/dL AST (10-42) IU/L ALT (10-60) IU/L Alkaline Phosphatase (42-121) IU/L Total Protein (6.7-8.2) g/dL Albumin (3.2-5.5) g/dL Globulin (2.1-4.2) g/dL Albumin/Globulin Ratio (1.0-2.2) ABX Reporting Has patient been on IV antibiotics over the past 48 hours?: Yes Sepsis Event Note (H) - Evaluation Current Stage of Sepsis: Ruled out - Sepsis Criteria Sepsis Criteria: WBC count greater than 12,000 or less than 4000, Renal: urine output less than 0.5ml/kg/hr for 2 hours or creatinine gr Assessment/Plan - Problem List (1) UTI (urinary tract infection) Impression: UA reveal positive for beta hemolytic strep B. WBC is reduced to 9.3 today continue antibiotics IV of Rocephin will d/c Baez cath, pt report he had no Baez at home, no issue for urination (2) NANNETTE (acute kidney injury) improved, creatinine form 2 at admission to 1.3 today, but precaution of fluid overload continue gently IVF of NC continue lab monitor (3) Fall pt had fall at home, consult with PT/OT, plan to d/c to SNF discussed with pt about loss of his weight (4) Uncontrolled diabetes mellitus pt did not take his DM meds at home for a while, A1C is 6.7 continue slide scale, ACHS continue hypoglycemia (5) Right ankle sprain Impression: there is soft tissue swelling noted around the right ankle, low calf continue PT/OT fall precaution (6) Essential hypertension Continue to monitor blood pressure, IV hydralazine as needed (7) Morbid obesity with BMI of 40.0-44.9, adult Impression: Current BMI of 43.1, discussed with pt about loss of weight (8) lymphedema Impression: pt report he had worsening of his bilateral edema and swelling. 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
[2019-03-22] MEDS: TAMSULOSIN 0.4 MG CAPSULE PO SCH (17:46)
[2019-03-22] MEDS: INSULIN GLARGINE 300 UNIT/3 ML PEN SUBQ SCH (22:12)
--- NOTE | 2019-03-22 22:33 | Ultrasound Report ---
Reason: erythema and swelling at lower extremities, DVT Procedure Date: 03/22/2019 Accession Number: [id number] / [id number] Procedure: US - Duplex Ext Veins Bilateral CPT Code: FULL RESULT: EXAM: BILATERAL LOWER EXTREMITY VENOUS ULTRASOUND EXAM DATE: 03/22/2019 08:32 PM. CLINICAL HISTORY: Erythema and swelling of lower extremities. Concern for DVT. COMPARISON: None. TECHNIQUE: Real-time sonographic vascular imaging was performed by the inspector electromechanical through the lower extremities utilizing both color-flow and Doppler spectral analysis. Multiple patient relations representative static images were saved for review. FINDINGS: Limited exam. Patient terminated exam after single image demonstrating patent right common femoral vein. IMPRESSION: Exam terminated by patient after single image demonstrating patent right common femoral vein. RADIA
[2019-03-23] MEDS: SODIUM CHLORIDE 0.9% 1,000 ML IV SCH (00:25)
[2019-03-23] MEDS: SODIUM CHLORIDE FLUSH 0.9% 10 ML SYRINGE IVP SCH ×4 (01:35→23:57)
[2019-03-23 05:42] LABS: BASOPHILS % (AUTO) 0.4 %; EOSINOPHILS # (AUTO) 0.2 10^3/uL (0.0-0.7); EOSINOPHILS % (AUTO) 2.5 %; HGB - HEMOGLOBIN 12.7 g/dL (14.0-18.0); LYMPHOCYTES # (AUTO) 1.3 10^3/uL (1.5-3.5); LYMPHOCYTES % (AUTO) 17.4 %; MEAN CORPUSCULAR HEMOGLOBIN 30.5 pg (27.0-31.0); MEAN CORPUSCULAR HGB CONC 33.3 g/dL (32.0-36.0); MEAN CORPUSCULAR VOLUME 91.4 fL (80.0-94.0); MEAN PLATELET VOLUME 6.5 fL (7.4-11.4); MONOCYTES # (AUTO) 0.7 10^3/uL (0.0-1.0); MONOCYTES % (AUTO) 9.7 %; PLT - PLATELET COUNT 121 10^3/uL (130-450); RED BLOOD COUNT 4.17 10^6/uL (4.70-6.10); RED CELL DISTRIBUTION WIDTH 16.8 % (12.0-15.0); WHITE BLOOD COUNT 7.2 x10^3/uL (4.8-10.8)
[2019-03-23 05:55] LABS: ALBUMIN 2.5 g/dL (3.2-5.5); ALBUMIN/GLOBULIN RATIO 0.8 (1.0-2.2); ALKALINE PHOSPHATASE 45 IU/L (42-121); ALT ALANINE AMINOTRANSFERASE < 10 IU/L (10-60); AST ASPARTATE AMINOTRANSFERASE 13 IU/L (10-42); BILIRUBIN,TOTAL 0.3 mg/dL (0.2-1.0); BUN - BLOOD UREA NITROGEN 25 mg/dL (6-20); CALCIUM 8.7 mg/dL (8.5-10.3); CARBON DIOXIDE - CO2 25 mmol/L (21-32); CHLORIDE 105 mmol/L (101-111); CREATININE 1.3 mg/dL (0.6-1.2); GFR - MDRD 53 (>89); GLUCOSE 118 mg/dL (70-100); SODIUM 138 mmol/L (135-145); TOTAL PROTEIN 5.8 g/dL (6.7-8.2)
[2019-03-23] MEDS: PANTOPRAZOLE 40 MG TABLET PO SCH (06:35)
[2019-03-23] MEDS: ENOXAPARIN 40 MG/0.4 ML SYRINGE SUBQ SCH ×2 (09:16→20:54)
[2019-03-23] MEDS: cefTRIAXone 2 GM in SODIUM CHLORIDE 0.9% MINIBAG 100 ML IV SCH (09:16)
[2019-03-23] MEDS: HYDROcod/ACETAM 5/325 MG TABLET PO PRN ×3 (09:17→20:55)
[2019-03-23] MEDS: NYSTATIN POWDER 15 GM TOP SCH ×2 (09:17→20:56)
[2019-03-23] MEDS: SACCHAROMYCES BOULARDII 250 MG CAPSULE PO SCH ×2 (09:17→16:45)
[2019-03-23] MEDS: POLYETHYLENE GLYCOL 3350 17 GM PACKET PO SCH (09:17)
[2019-03-23] MEDS: METOPROLOL SUCCINATE 50 MG TABLET PO SCH ×2 (09:17→16:45)
[2019-03-23] MEDS: FLUCONAZOLE 100 MG TABLET PO SCH (09:17)
[2019-03-23] MEDS: INSULIN ASPART 300 UNIT/3 ML PEN SUBQ SCH ×4 (09:22→20:54)
[2019-03-23] MEDS: KETOROLAC 15 MG/ML VIAL IVP PRN ×2 (13:45→23:56)
--- NOTE | 2019-03-23 15:04 | PROVIDER PROGRESS NOTE ---
Subjective - Prog Note Date Prog Note Date: 03/23/19 - Subjective Pt reports feeling: No change Subjective: pt report reduced swelling on his bilateral lower extremities, feels better. he denies fever,chill, chest pain, shortness of breath. Nurse report pt had no urination for over 8 hours, bladder scan is very small amount. will order US of retroperitonel. Current Medications - Current Medications Current Medications: Active Medications Acetaminophen (Tylenol) 650 mg PO Q4HR PRN PRN Reason: Pain 1 to 4 Last Admin: 03/21/19 05:29 Dose: 650 mg Hydrocodone Bitart/Acetaminophen ([place] 5/325) 2 tab PO Q4HR PRN PRN Reason: Pain 5 to 7 Last Admin: 03/23/19 14:21 Dose: 2 tab Enoxaparin Sodium (Lovenox) 40 mg SUBQ BID [facility] Last Admin: 03/23/19 09:16 Dose: 40 mg Fluconazole (Diflucan) 100 mg PO DAILY [facility] Last Admin: 03/23/19 09:17 Dose: 100 mg Hydralazine HCl (Apresoline Inj) 10 mg IVP Q2H PRN PRN Reason: Hypertensive Emergency Ceftriaxone Sodium 2 gm/ (Sodium Chloride) 100 mls @ 200 mls/hr IV DAILY [facility] Last Infusion: 03/23/19 09:55 Dose: Infused Insulin Aspart (Novolog) 1 - 9 unit SUBQ 0800,1200,1700,2100 [facility]; Protocol Last Admin: 03/23/19 12:11 Dose: Not Given Insulin Glargine (Lantus Solostar) 5 unit SUBQ QPM [facility] Last Admin: 03/22/19 22:12 Dose: 5 unit Ketorolac Tromethamine (Toradol Inj (15mg)) 15 mg IVP Q6H PRN PRN Reason: PAIN Stop: 03/26/19 20:59 Last Admin: 03/23/19 13:45 Dose: 15 mg Lidocaine HCl (Xylocaine Uro-Jet 2%) 2.5 ml UR Q6H PRN PRN Reason: PAIN Last Admin: 03/20/19 19:02 Dose: 2.5 ml Metoprolol Succinate (Toprol Xl) 50 mg PO BIDWM [facility] Last Admin: 03/23/19 09:17 Dose: 50 mg Mineral Oil (Cavilon) 1 applic TOP PRN PRN PRN Reason: Skin Care Nystatin (Nystop) 1 applic TOP BID [facility] Last Admin: 03/23/19 09:17 Dose: 1 applic Ondansetron HCl (Zofran Inj) 4 mg IVP Q6HR PRN PRN Reason: Nausea / Vomiting Pantoprazole Sodium (Protonix) 40 mg PO QDAC [facility] Last Admin: 03/23/19 06:35 Dose: 40 mg Polyethylene Glycol (Miralax) 17 gm PO DAILY [facility] Last Admin: 03/23/19 09:17 Dose: Not Given Saccharomyces Boulardii (Florastor) 250 mg PO BIDWM [facility] Last Admin: 03/23/19 09:17 Dose: 250 mg Sodium Chloride (Normal Saline Flush 0.9%) 10 ml IVP PRN PRN PRN Reason: NEEDED PER PROVIDER ORDERS Sodium Chloride (Normal Saline Flush 0.9%) 10 ml IVP 0100,0900,1700 [facility] Last Admin: 03/23/19 09:17 Dose: Not Given Tamsulosin HCl (Flomax) 0.4 mg PO DAILY@1730 [facility] Last Admin: 03/22/19 17:46 Dose: 0.4 mg Temazepam (Restoril) 15 mg PO QPM PRN PRN Reason: Insomnia No Known Home Medications 03/20/19 Objective - Vital Signs/Intake & Output Reviewed Vital Signs: Yes Vital Signs: Vital Signs x48h Temp Pulse Pulse Pulse Resp BP BP 03/23/19 10:55 62 142/58 H 03/23/19 08:00 36.3 C L 71 18 151/84 H 03/23/19 07:57 36.2 C L 75 18 Pulse Ox Pulse Ox 03/23/19 10:55 94 03/23/19 08:00 95 03/23/19 07:57 96 Intake & Output: Intake & Output 03/20/19 03/21/19 03/22/19 03/23/19 23:59 23:59 23:59 23:59 Intake Total 3200 4350.833 2950 2161.25 Output Total 3800 1175 1400 1600 Balance -600 3175.833 1550 561.25 - Objective General Appearance: positive: No acute distress, Alert. negative: Lethargic Eyes Bilateral: positive: Normal inspection, PERRL, No lid inflammation, Conjunctivae nml ENT: positive: ENT inspection nml, Pharynx nml, No signs of dehydration. negative: Purulent nasal drainage, Pharyngeal erythema, Oral lesions Neck: positive: Nml inspection, Thyroid nml, No JVD, Trachea midline. negative: Thyromegaly, Lymphadenopathy (R), Lymphadenopathy (L), Stiff neck, Swell ing/bruising, Tracheal deviation Respiratory: positive: Chest non-tender, No respiratory distress, Breath sounds nml. negative: Wheezes, Rales, Rhonchi Cardiovascular: positive: Regular rate & rhythm, No murmur, No gallop. negative: Irregularly irregular, Extrasystoles, Tachycardia, Bradycardia, JVD present, Systolic murmur, Diastolic murmur Peripheral Pulses: 2+ Radial (R), 2+ Radial (L), 2+ Dorsalis pedis (R), 2+ Dors anat pedis (L) Abdomen: positive: Non-tender, No organomegaly, Nml bowel sounds. negative: Tenderness, Guarding, Rebound Back: positive: Nml inspection. negative: CVA tenderness (R), CVA tenderness (L) Skin: positive: Warm, Dry, Skin rash. negative: Cyanosis, Diaphoresis, Pallor Extremities: positive: Non-tender. negative: Calf tenderness, Daniel's sign/cords Neurologic/Psychiatric: positive: Oriented x3. negative: Weakness, Sensory loss, Facial droop, Slurred/abnml speech, Depressed mood/affect - Lab Results Fish Bones: 03/23/19 05:15 03/23/19 05:15 Other Labs: Lab Results x24hrs 03/23/19 03/23/19 03/23/19 Range/Units 11:05 07:37 05:15 WBC (4.8-10.8) x10^3/uL RBC (4.70-6.10) 10^6/uL Hgb (14.0-18.0) g/dL Hct (42.0-52.0) % MCV (80.0-94.0) fL MCH (27.0-31.0) pg MCHC (32.0-36.0) g/dL RDW (12.0-15.0) % Plt Count (130-450) 10^3/uL MPV (7.4-11.4) fL Neut # (Auto) (1.5-6.6) 10^3/uL Lymph # (Auto) (1.5-3.5) 10^3/uL [place] # (Auto) (0.0-1.0) 10^3/uL Eos # (Auto) (0.0-0.7) 10^3/uL Baso # (Auto) (0.0-0.1) 10^3/uL Absolute Nucleated RBC x10^3/uL Nucleated RBC % /100WBC Sodium (135-145) mmol/L Potassium (3.5-5.0) mmol/L Chloride (101-111) mmol/L Carbon Dioxide (21-32) mmol/L Anion Gap (6-13) BUN (6-20) mg/dL Creatinine (0.6-1.2) mg/dL Estimated GFR (MDRD) (>89) Glucose (70-100) mg/dL POC Whole Bld Glucose 136 H 100 (70 - 100) mg/dL Calcium (8.5-10.3) mg/dL Total Bilirubin (0.2-1.0) mg/dL AST (10-42) IU/L ALT (10-60) IU/L Alkaline Phosphatase (42-121) IU/L C-Reactive Protein (0-1.0) mg/dL B-Natriuretic Peptide 282 H (5-100) pg/mL Total Protein (6.7-8.2) g/dL Albumin (3.2-5.5) g/dL Globulin (2.1-4.2) g/dL Albumin/Globulin Ratio (1.0-2.2) 03/23/19 03/23/19 03/23/19 Range/Units 05:15 05:15 05:15 WBC 7.2 (4.8-10.8) x10^3/uL RBC 4.17 L (4.70-6.10) 10^6/uL Hgb 12.7 L (14.0-18.0) g/dL Hct 38.1 L (42.0-52.0) % MCV 91.4 (80.0-94.0) fL MCH 30.5 (27.0-31.0) pg MCHC 33.3 (32.0-36.0) g/dL RDW 16.8 H (12.0-15.0) % Plt Count 121 L (130-450) 10^3/uL MPV 6.5 L (7.4-11.4) fL Neut # (Auto) 5.0 (1.5-6.6) 10^3/uL Lymph # (Auto) 1.3 L (1.5-3.5) 10^3/uL [place] # (Auto) 0.7 (0.0-1.0) 10^3/uL Eos # (Auto) 0.2 (0.0-0.7) 10^3/uL Baso # (Auto) 0.0 (0.0-0.1) 10^3/uL Absolute Nucleated RBC 0.01 x10^3/uL Nucleated RBC % 0.1 /100WBC Sodium 138 (135-145) mmol/L Potassium 3.9 (3.5-5.0) mmol/L Chloride 105 (101-111) mmol/L Carbon Dioxide 25 (21-32) mmol/L Anion Gap 8.0 (6-13) BUN 25 H (6-20) mg/dL Creatinine 1.3 H (0.6-1.2) mg/dL Estimated GFR (MDRD) 53 L (>89) Glucose 118 H (70-100) mg/dL POC Whole Bld Glucose (70 - 100) mg/dL Calcium 8.7 (8.5-10.3) mg/dL Total Bilirubin 0.3 (0.2-1.0) mg/dL AST 13 (10-42) IU/L ALT < 10 L (10-60) IU/L Alkaline Phosphatase 45 (42-121) IU/L C-Reactive Protein 8.2 H (0-1.0) mg/dL B-Natriuretic Peptide (5-100) pg/mL Total Protein 5.8 L (6.7-8.2) g/dL Albumin 2.5 L (3.2-5.5) g/dL Globulin 3.3 (2.1-4.2) g/dL Albumin/Globulin Ratio 0.8 L (1.0-2.2) 03/22/19 03/22/19 Range/Units 21:27 17:09 WBC (4.8-10.8) x10^3/uL RBC (4.70-6.10) 10^6/uL Hgb (14.0-18.0) g/dL Hct (42.0-52.0) % MCV (80.0-94.0) fL MCH (27.0-31.0) pg MCHC (32.0-36.0) g/dL RDW (12.0-15.0) % Plt Count (130-450) 10^3/uL MPV (7.4-11.4) fL Neut # (Auto) (1.5-6.6) 10^3/uL Lymph # (Auto) (1.5-3.5) 10^3/uL [place] # (Auto) (0.0-1.0) 10^3/uL Eos # (Auto) (0.0-0.7) 10^3/uL Baso # (Auto) (0.0-0.1) 10^3/uL Absolute Nucleated RBC x10^3/uL Nucleated RBC % /100WBC Sodium (135-145) mmol/L Potassium (3.5-5.0) mmol/L Chloride (101-111) mmol/L Carbon Dioxide (21-32) mmol/L Anion Gap (6-13) BUN (6-20) mg/dL Creatinine (0.6-1.2) mg/dL Estimated GFR (MDRD) (>89) Glucose (70-100) mg/dL POC Whole Bld Glucose 174 H 145 H (70 - 100) mg/dL Calcium (8.5-10.3) mg/dL Total Bilirubin (0.2-1.0) mg/dL AST (10-42) IU/L ALT (10-60) IU/L Alkaline Phosphatase (42-121) IU/L C-Reactive Protein (0-1.0) mg/dL B-Natriuretic Peptide (5-100) pg/mL Total Protein (6.7-8.2) g/dL Albumin (3.2-5.5) g/dL Globulin (2.1-4.2) g/dL Albumin/Globulin Ratio (1.0-2.2) ABX Reporting Has patient been on IV antibiotics over the past 48 hours?: Yes Sepsis Event Note (H) - Evaluation Current Stage of Sepsis: Ruled out - Sepsis Criteria Sepsis Criteria: WBC count greater than 12,000 or less than 4000, Renal: urine output less than 0.5ml/kg/hr for 2 hours or creatinine gr Assessment/Plan - Problem List (1) UTI (urinary tract infection) Impression: 03/23 continue treat UTI, this is day 3 for treatment of UTI continue Rocephin UA reveal positive for beta hemolytic strep B. WBC is reduced to 9.3 today continue antibiotics IV of Rocephin will d/c Baez cath, pt report he had no Baez at home, no issue for urination SW is seeking replacement for pt (2) NANNETTE (acute kidney injury) 03/23 stable, continue lab monitor improved, creatinine form 2 at admission to 1.3 today, but precaution of fluid overload continue gently IVF of NC continue lab monitor (3) Fall 01/21 continue PT/OT pt is recommended by PT/OT for SNF and pt is unsafe to be d/c to home pt had fall at home, consult with PT/OT, plan to d/c to SNF discussed with pt about loss of his weight (4) Uncontrolled diabetes mellitus 03/23 good controlled glucose level, continue slide scale pt did not take his DM meds at home for a while, A1C is 6.7 continue slide scale, ACHS continue hypoglycemia (5) Right ankle sprain Impression: there is soft tissue swelling noted around the right ankle, low calf continue PT/OT fall precaution (6) Essential hypertension Continue to monitor blood pressure, IV hydralazine as needed (7) Morbid obesity with BMI of 40.0-44.9, adult Impression: Current BMI of 43.1, discussed with pt about loss of weight (8) lymphedema Impression: 03/23 pt refused to complete US of bilateral lower extremities to r/o DVT. the swelling is reduced and erythema also reduced. will check D-dimer but more likely ther is no DVT at his lower extremities pt report he had worsening of his bilateral edema and swelling. In the examination, pt had snf of lymphedema, with erythema at bilateral calf pt's lower extremities's skin is intact, continue wound consult, will followup order US of leg to r/o DVT rise of legs encourage ambulation (9) Medical non-compliance pt admitted he did not take his medications for quite long time consult for medical compliance and Encourage compliance (10)oliguria/anuria nurse report pt has no urine over 8 hours, bladder scan is unremarkable. order ST of US of retroperitoneal, will followup, order IVF now continue lab monitor and vital monitor
[2019-03-23] MEDS ORDERED: SODIUM CHLORIDE 0.9% 1,000 ML IV SCH (16:00)
[2019-03-23] MEDS: TAMSULOSIN 0.4 MG CAPSULE PO SCH (16:45)
--- NOTE | 2019-03-23 20:35 | Ultrasound Report ---
Reason: without urination over 8 hours, bladder scan neg Procedure Date: 03/23/2019 Accession Number: [id number] / [id number] Procedure: US - Retroperitoneal CPT Code: FULL RESULT: EXAM: RENAL ULTRASOUND EXAM DATE: 03/23/2019 07:46 PM. CLINICAL HISTORY: Without urination over 8 hours, bladder scan neg. COMPARISON: None. TECHNIQUE: Real-time scanning was performed with static images obtained. FINDINGS: Overall limited assessment due to patient's body habitus. Right Kidney: 14.3 x 8.2 x 7.9 cm. Normal echotexture with no stones, contour-deforming masses, or hydronephrosis. Left Kidney: 14.9 x 6.7 x 6.7 cm. Normal echotexture with no stones, contour-deforming masses, or hydronephrosis. Bladder: Contracted. Baez's catheter in situ. Other: None. IMPRESSION: Overall unremarkable appearing kidneys. RADIA
[2019-03-23] MEDS: INSULIN GLARGINE 300 UNIT/3 ML PEN SUBQ SCH (20:54)
[2019-03-24] MEDS: PANTOPRAZOLE 40 MG TABLET PO SCH (06:34)
[2019-03-24] MEDS: INSULIN ASPART 300 UNIT/3 ML PEN SUBQ SCH ×4 (07:37→20:54)
[2019-03-24 08:15] LABS: BASOPHILS # (AUTO) 0.1 10^3/uL (0.0-0.1); BASOPHILS % (AUTO) 0.8 %; EOSINOPHILS # (AUTO) 0.2 10^3/uL (0.0-0.7); EOSINOPHILS % (AUTO) 2.2 %; HGB - HEMOGLOBIN 13.2 g/dL (14.0-18.0); LYMPHOCYTES # (AUTO) 1.1 10^3/uL (1.5-3.5); LYMPHOCYTES % (AUTO) 13.5 %; MEAN CORPUSCULAR HEMOGLOBIN 29.9 pg (27.0-31.0); MEAN CORPUSCULAR HGB CONC 32.9 g/dL (32.0-36.0); MEAN CORPUSCULAR VOLUME 90.9 fL (80.0-94.0); MEAN PLATELET VOLUME 6.4 fL (7.4-11.4); MONOCYTES # (AUTO) 0.7 10^3/uL (0.0-1.0); NEUTROPHILS # (AUTO) 5.8 10^3/uL (1.5-6.6); NEUTROPHILS % (AUTO) 74.5 %; PLT - PLATELET COUNT 141 10^3/uL (130-450); RED CELL DISTRIBUTION WIDTH 16.3 % (12.0-15.0); WHITE BLOOD COUNT 7.8 x10^3/uL (4.8-10.8)
[2019-03-24 08:20] LABS: CALCIUM 9.1 mg/dL (8.5-10.3); CREATININE 1.1 mg/dL (0.6-1.2)
[2019-03-24] MEDS: SODIUM CHLORIDE FLUSH 0.9% 10 ML SYRINGE IVP SCH ×2 (09:08→16:08)
[2019-03-24] MEDS: cefTRIAXone 2 GM in SODIUM CHLORIDE 0.9% MINIBAG 100 ML IV SCH (09:08)
[2019-03-24] MEDS: SENNA 8.6 MG TABLET PO SCH (09:11)
[2019-03-24] MEDS: POLYETHYLENE GLYCOL 3350 17 GM PACKET PO SCH (09:11)
[2019-03-24] MEDS: DOCUSATE SODIUM 250 MG CAPSULE PO SCH (09:11)
[2019-03-24] MEDS: METOPROLOL SUCCINATE 50 MG TABLET PO SCH ×2 (09:11→17:07)
[2019-03-24] MEDS: NYSTATIN POWDER 15 GM TOP SCH ×2 (09:12→21:04)
[2019-03-24] MEDS: FLUCONAZOLE 100 MG TABLET PO SCH (09:12)
[2019-03-24] MEDS: SACCHAROMYCES BOULARDII 250 MG CAPSULE PO SCH ×2 (09:12→17:09)
[2019-03-24] MEDS: ENOXAPARIN 40 MG/0.4 ML SYRINGE SUBQ SCH ×2 (09:13→20:50)
[2019-03-24] MEDS: KETOROLAC 15 MG/ML VIAL IVP PRN (10:55)
--- NOTE | 2019-03-24 14:32 | PROVIDER PROGRESS NOTE ---
Subjective - Prog Note Date Prog Note Date: 03/24/19 - Subjective Pt reports feeling: No change Subjective: pt is comfort staying at his bed to eat his breakfast, denies fever, chill, chest pain. pt still can not urinate by his own, now pt has a Baez catheter. Current Medications - Current Medications Current Medications: Active Medications Acetaminophen (Tylenol) 650 mg PO Q4HR PRN PRN Reason: Pain 1 to 4 Last Admin: 03/21/19 05:29 Dose: 650 mg Hydrocodone Bitart/Acetaminophen ([place] 5/325) 2 tab PO Q4HR PRN PRN Reason: Pain 5 to 7 Last Admin: 03/23/19 20:55 Dose: 2 tab Docusate Sodium (Colace 250mg Capsule) 250 - 500 mg PO DAILY [facility] Last Admin: 03/24/19 09:11 Dose: 250 mg Enoxaparin Sodium (Lovenox) 40 mg SUBQ BID [facility] Last Admin: 03/24/19 09:13 Dose: 40 mg Fluconazole (Diflucan) 100 mg PO DAILY [facility] Last Admin: 03/24/19 09:12 Dose: 100 mg Hydralazine HCl (Apresoline Inj) 10 mg IVP Q2H PRN PRN Reason: Hypertensive Emergency Ceftriaxone Sodium 2 gm/ (Sodium Chloride) 100 mls @ 200 mls/hr IV DAILY [facility] Last Infusion: 03/24/19 11:23 Dose: Infused Insulin Aspart (Novolog) 1 - 9 unit SUBQ 0800,1200,1700,2100 [facility]; Protocol Last Admin: 03/24/19 11:26 Dose: Not Given Insulin Glargine (Lantus Solostar) 5 unit SUBQ QPM [facility] Last Admin: 03/23/19 20:54 Dose: 5 unit Ketorolac Tromethamine (Toradol Inj (15mg)) 15 mg IVP Q6H PRN PRN Reason: PAIN Stop: 03/26/19 20:59 Last Admin: 03/24/19 10:55 Dose: 15 mg Lidocaine HCl (Xylocaine Uro-Jet 2%) 2.5 ml UR Q6H PRN PRN Reason: PAIN Last Admin: 03/20/19 19:02 Dose: 2.5 ml Metoprolol Succinate (Toprol Xl) 50 mg PO BIDWM [facility] Last Admin: 03/24/19 09:11 Dose: 50 mg Mineral Oil (Cavilon) 1 applic TOP PRN PRN PRN Reason: Skin Care Nystatin (Nystop) 1 applic TOP BID [facility] Last Admin: 03/24/19 09:12 Dose: 1 applic Ondansetron HCl (Zofran Inj) 4 mg IVP Q6HR PRN PRN Reason: Nausea / Vomiting Pantoprazole Sodium (Protonix) 40 mg PO QDAC [facility] Last Admin: 03/24/19 06:34 Dose: 40 mg Polyethylene Glycol (Miralax) 17 gm PO DAILY [facility] Last Admin: 03/24/19 09:11 Dose: 17 gm Saccharomyces Boulardii (Florastor) 250 mg PO BIDWM [facility] Last Admin: 03/24/19 09:12 Dose: 250 mg Senna (Senokot) 8.6 - 17.2 mg PO DAILY [facility] Last Admin: 03/24/19 09:11 Dose: 8.6 mg Sodium Chloride (Normal Saline Flush 0.9%) 10 ml IVP PRN PRN PRN Reason: NEEDED PER PROVIDER ORDERS Last Admin: 03/24/19 10:56 Dose: 10 ml Sodium Chloride (Normal Saline Flush 0.9%) 10 ml IVP 0100,0900,1700 [facility] Last Admin: 03/24/19 09:08 Dose: 10 ml Tamsulosin HCl (Flomax) 0.4 mg PO DAILY@1730 [facility] Last Admin: 03/23/19 16:45 Dose: 0.4 mg Temazepam (Restoril) 15 mg PO QPM PRN PRN Reason: Insomnia No Known Home Medications 03/20/19 Objective - Vital Signs/Intake & Output Reviewed Vital Signs: Yes Vital Signs: Vital Signs x48h Temp Pulse Resp BP Pulse Ox 03/24/19 07:25 36.3 C L 83 18 145/65 H 92 Intake & Output: Intake & Output 03/21/19 03/22/19 03/23/19 03/24/19 23:59 23:59 23:59 23:59 Intake Total 4350.833 2950 2629.25 900 Output Total 1175 1400 3370 1325 Balance 3175.833 1550 -740.75 -425 - Objective General Appearance: positive: No acute distress, Alert. negative: Lethargic Eyes Bilateral: positive: Normal inspection, PERRL. negative: No lid inflammation, Conjunctivae nml ENT: positive: ENT inspection nml, Pharynx nml, No signs of dehydration. negative: Purulent nasal drainage, Pharyngeal erythema, Oral lesions, Dry mucous membranes Neck: positive: Nml inspection, Thyroid nml, No JVD, Trachea midline. negative: Thyromegaly, Lymphadenopathy (R), Lymphadenopathy (L), Stiff neck, Swelling/bruising, Tracheal deviation Respiratory: positive: Chest non-tender, No respiratory distress, Breath sounds nml. negative: Wheezes, Rales, Rhonchi Cardiovascular: positive: Regular rate & rhythm, No murmur, No gallop. negative: Irregularly irregular, Extrasystoles, Tachycardia, Bradycardia, JVD present, Systolic murmur, Diastolic murmur Peripheral Pulses: 2+ Radial (R), 2+ Radial (L), 2+ Dorsalis pedis (R), 2+ Dorsalis pedis (L) Abdomen: positive: Non-tender, No organomegaly, Nml bowel sounds. negative: Tenderness, Guarding, Rebound Back: positive: Nml inspection. negative: CVA tenderness (R), CVA tenderness (L) Skin: positive: Warm, Dry, Skin rash. negative: Cyanosis, Diaphoresis, Pallor Extremities: positive: Non-tender. negative: Calf tenderness, Daniel's sign/cords Neurologic/Psychiatric: positive: Oriented x3, Mood/affect nml. negative: Weakness, Sensory loss, Facial droop, Slurred/abnml speech, Depressed mood/affect - Lab Results Fish Bones: 03/24/19 08:00 03/24/19 08:00 Other Labs: Lab Results x24hrs 03/24/19 03/24/19 03/24/19 Range/Units 11:18 08:00 08:00 WBC 7.8 (4.8-10.8) x10^3/uL RBC 4.40 L (4.70-6.10) 10^6/uL Hgb 13.2 L (14.0-18.0) g/dL Hct 40.0 L (42.0-52.0) % MCV 90.9 (80.0-94.0) fL MCH 29.9 (27.0-31.0) pg MCHC 32.9 (32.0-36.0) g/dL RDW 16.3 H (12.0-15.0) % Plt Count 141 (130-450) 10^3/uL MPV 6.4 L (7.4-11.4) fL Neut # (Auto) 5.8 (1.5-6.6) 10^3/uL Lymph # (Auto) 1.1 L (1.5-3.5) 10^3/uL [place] # (Auto) 0.7 (0.0-1.0) 10^3/uL Eos # (Auto) 0.2 (0.0-0.7) 10^3/uL Baso # (Auto) 0.1 (0.0-0.1) 10^3/uL Absolute Nucleated RBC 0.01 x10^3/uL Nucleated RBC % 0.1 /100WBC D-Dimer (200.0-255.0) ng/mL Sodium 138 (135-145) mmol/L Potassium 4.3 (3.5-5.0) mmol/L Chloride 104 (101-111) mmol/L Carbon Dioxide 23 (21-32) mmol/L Anion Gap 11.0 (6-13) BUN 20 (6-20) mg/dL Creatinine 1.1 (0.6-1.2) mg/dL Estimated GFR (MDRD) 65 L (>89) Glucose 117 H (70-100) mg/dL POC Whole Bld Glucose 138 H (70 - 100) mg/dL Calcium 9.1 (8.5-10.3) mg/dL 03/24/19 03/24/19 03/23/19 Range/Units 07:28 05:20 20:52 WBC (4.8-10.8) x10^3/uL RBC (4.70-6.10) 10^6/uL Hgb (14.0-18.0) g/dL Hct (42.0-52.0) % MCV (80.0-94.0) fL MCH (27.0-31.0) pg MCHC (32.0-36.0) g/dL RDW (12.0-15.0) % Plt Count (130-450) 10^3/uL MPV (7.4-11.4) fL Neut # (Auto) (1.5-6.6) 10^3/uL Lymph # (Auto) (1.5-3.5) 10^3/uL [place] # (Auto) (0.0-1.0) 10^3/uL Eos # (Auto) (0.0-0.7) 10^3/uL Baso # (Auto) (0.0-0.1) 10^3/uL Absolute Nucleated RBC x10^3/uL Nucleated RBC % /100WBC D-Dimer 262.1 H (200.0-255.0) ng/mL Sodium (135-145) mmol/L Potassium (3.5-5.0) mmol/L Chloride (101-111) mmol/L Carbon Dioxide (21-32) mmol/L Anion Gap (6-13) BUN (6-20) mg/dL Creatinine (0.6-1.2) mg/dL Estimated GFR (MDRD) (>89) Glucose (70-100) mg/dL POC Whole Bld Glucose 105 H 144 H (70 - 100) mg/dL Calcium (8.5-10.3) mg/dL 03/23/19 Range/Units 16:40 WBC (4.8-10.8) x10^3/uL RBC (4.70-6.10) 10^6/uL Hgb (14.0-18.0) g/dL Hct (42.0-52.0) % MCV (80.0-94.0) fL MCH (27.0-31.0) pg MCHC (32.0-36.0) g/dL RDW (12.0-15.0) % Plt Count (130-450) 10^3/uL MPV (7.4-11.4) fL Neut # (Auto) (1.5-6.6) 10^3/uL Lymph # (Auto) (1.5-3.5) 10^3/uL [place] # (Auto) (0.0-1.0) 10^3/uL Eos # (Auto) (0.0-0.7) 10^3/uL Baso # (Auto) (0.0-0.1) 10^3/uL Absolute Nucleated RBC x10^3/uL Nucleated RBC % /100WBC D-Dimer (200.0-255.0) ng/mL Sodium (135-145) mmol/L Potassium (3.5-5.0) mmol/L Chloride (101-111) mmol/L Carbon Dioxide (21-32) mmol/L Anion Gap (6-13) BUN (6-20) mg/dL Creatinine (0.6-1.2) mg/dL Estimated GFR (MDRD) (>89) Glucose (70-100) mg/dL POC Whole Bld Glucose 113 H (70 - 100) mg/dL Calcium (8.5-10.3) mg/dL ABX Reporting Has patient been on IV antibiotics over the past 48 hours?: Yes Sepsis Event Note (H) - Evaluation Current Stage of Sepsis: Ruled out - Sepsis Criteria Sepsis Criteria: WBC count greater than 12,000 or less than 4000, Renal: urine output less than 0.5ml/kg/hr for 2 hours or creatinine gr Assessment/Plan - Problem List (1) UTI (urinary tract infection) Impression: 03/24 will continue to treat his UTI for 7-10 days, this is day 4 for treatment 03/23 continue treat UTI, this is day 3 for treatment of UTI continue Rocephin UA reveal positive for beta hemolytic strep B. WBC is reduced to 9.3 today continue antibiotics IV of Rocephin will d/c Baez cath, pt report he had no Baez at home, no issue for urination pt is clinic stable for d/c now (2) NANNETTE (acute kidney injury) 03/24 creatinine is slight improved, as his baseline continue keep hydration, and lab monitor 03/23 stable, continue lab monitor improved, creatinine form 2 at admission to 1.3 today, but precaution of fluid overload continue gently IVF of NC continue lab monitor (3) Fall 03/24 continue PT/OT 01/21 continue PT/OT pt is recommended by PT/OT for SNF and pt is unsafe to be d/c to home pt had fall at home, consult with PT/OT, plan to d/c to SNF discussed with pt about loss of his weight (4) Uncontrolled diabetes mellitus 03/24 good controlled glucose level, continue slide scale, ACHS, hypoglycemia protocol 03/23 good controlled glucose level, continue slide scale pt did not take his DM meds at home for a while, A1C is 6.7 continue slide scale, ACHS continue hypoglycemia (5) Right ankle sprain Impression: 03/24 stable, no complaint. continue nurse support and care there is soft tissue swelling noted around the right ankle, low calf continue PT/OT fall precaution (6) Essential hypertension 03/24 stable, continue clinic management, and vital monitor Continue to monitor blood pressure, IV hydralazine as needed (7) Morbid obesity with BMI of 40.0-44.9, adult Impression: Current BMI of 43.1, discussed with pt about loss of weight (8) lymphedema Impression: 03/24 stable, as his baseline, no complaint at this time continue support and nurse care 03/23 pt refused to complete US of bilateral lower extremities to r/o DVT. the swelling is reduced and erythema also reduced. will check D-dimer but more likely ther is no DVT at his lower extremities pt report he had worsening of his bilateral edema and swelling. 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 US of retroperitoneal are unremarkable. pt has hx of DM2, it is likely caused by DM2 complication continue Baez and Baez care per nurse, I&O advise pt followup urologist for further management. nurse report pt has no urine over 8 hours, bladder scan is unremarkable. order ST of US of retroperitoneal, will followup, order IVF now continue lab monitor and vital monitor
[2019-03-24] MEDS ORDERED: IPRATROPIUM/ALBUTEROL 3 ML NEB INH PRN (15:56)
[2019-03-24] MEDS ORDERED: FUROSEMIDE 20 MG/2 ML VIAL IVP STA (15:57)
[2019-03-24] MEDS: HYDROcod/ACETAM 5/325 MG TABLET PO PRN ×2 (16:01→20:51)
[2019-03-24] MEDS: ALBUTEROL NEB 2.5 MG/3 ML INH PRN (16:07)
[2019-03-24] MEDS: TAMSULOSIN 0.4 MG CAPSULE PO SCH (17:08)
--- NOTE | 2019-03-24 18:42 | XRAY Report ---
Reason: SOB Procedure Date: 03/24/2019 Accession Number: [id number] / [id number] Procedure: XR - Chest 1 View X-Ray CPT Code: 44215 FULL RESULT: EXAM: CHEST RADIOGRAPHY EXAM DATE: 03/24/2019 04:12 PM. CLINICAL HISTORY: SOB. COMPARISON: CHEST 1 VIEW 03/20/2019 9:42 AM. TECHNIQUE: 1 view. Rotated to the right. FINDINGS: Lungs/Pleura: Mild diffuse prominence of lung markings with added density in left base and obscuration of left hemidiaphragm. Possible small left effusion. No right effusion. No consolidation or pneumothorax. Mediastinum: Overall heart size within normal limits for AP technique. Mild vascular fullness. Other: Osteopenia, degenerative changes. IMPRESSION: Mild interstitial prominence, possible left basilar infiltrate with tiny effusion. RADIA
[2019-03-24] MEDS: INSULIN GLARGINE 300 UNIT/3 ML PEN SUBQ SCH (20:55)
[2019-03-25] MEDS: SODIUM CHLORIDE FLUSH 0.9% 10 ML SYRINGE IVP SCH ×4 (00:21→17:16)
[2019-03-25] MEDS: HYDROcod/ACETAM 5/325 MG TABLET PO PRN ×3 (04:07→20:15)
[2019-03-25 05:29] LABS: BASOPHILS # (AUTO) 0.1 10^3/uL (0.0-0.1); BASOPHILS % (AUTO) 0.6 %; EOSINOPHILS # (AUTO) 0.2 10^3/uL (0.0-0.7); EOSINOPHILS % (AUTO) 1.7 %; HGB - HEMOGLOBIN 12.6 g/dL (14.0-18.0); LYMPHOCYTES # (AUTO) 0.7 10^3/uL (1.5-3.5); LYMPHOCYTES % (AUTO) 7.6 %; MEAN CORPUSCULAR HEMOGLOBIN 30.3 pg (27.0-31.0); MEAN CORPUSCULAR HGB CONC 33.7 g/dL (32.0-36.0); MEAN CORPUSCULAR VOLUME 90.1 fL (80.0-94.0); MEAN PLATELET VOLUME 6.2 fL (7.4-11.4); MONOCYTES # (AUTO) 0.9 10^3/uL (0.0-1.0); MONOCYTES % (AUTO) 10.6 %; NEUTROPHILS % (AUTO) 79.5 %; PLT - PLATELET COUNT 145 10^3/uL (130-450); RED BLOOD COUNT 4.16 10^6/uL (4.70-6.10); RED CELL DISTRIBUTION WIDTH 16.1 % (12.0-15.0); WHITE BLOOD COUNT 8.8 x10^3/uL (4.8-10.8)
[2019-03-25 05:31] LABS: CALCIUM 9.1 mg/dL (8.5-10.3); CREATININE 1.1 mg/dL (0.6-1.2)
[2019-03-25] MEDS: PANTOPRAZOLE 40 MG TABLET PO SCH (06:31)
[2019-03-25] MEDS: INSULIN ASPART 300 UNIT/3 ML PEN SUBQ SCH ×4 (08:01→20:24)
[2019-03-25] MEDS: POLYETHYLENE GLYCOL 3350 17 GM PACKET PO SCH (08:02)
[2019-03-25] MEDS: SACCHAROMYCES BOULARDII 250 MG CAPSULE PO SCH ×2 (08:03→17:04)
[2019-03-25] MEDS: AZITHROMYCIN 250 MG TABLET PO SCH (08:03)
[2019-03-25] MEDS: SENNA 8.6 MG TABLET PO SCH (08:03)
[2019-03-25] MEDS: FLUCONAZOLE 100 MG TABLET PO SCH (08:03)
[2019-03-25] MEDS: FUROSEMIDE 20 MG TABLET PO SCH (08:04)
[2019-03-25] MEDS: DOCUSATE SODIUM 250 MG CAPSULE PO SCH (08:04)
[2019-03-25] MEDS: METOPROLOL SUCCINATE 50 MG TABLET PO SCH ×2 (08:04→17:07)
[2019-03-25] MEDS: NYSTATIN POWDER 15 GM TOP SCH ×2 (08:08→20:15)
[2019-03-25] MEDS: ENOXAPARIN 40 MG/0.4 ML SYRINGE SUBQ SCH ×2 (08:40→20:15)
[2019-03-25] MEDS: cefTRIAXone 2 GM in SODIUM CHLORIDE 0.9% MINIBAG 100 ML IV SCH (08:48)
[2019-03-25] MEDS: ONDANSETRON 4 MG/2 ML VIAL IVP PRN ×2 (08:51→17:14)
[2019-03-25] MEDS ORDERED: MAGNESIUM HYDROXIDE 2,400 MG/30 ML UDC PO ONE (09:00)
--- NOTE | 2019-03-25 10:26 | PROVIDER PROGRESS NOTE ---
Subjective - Prog Note Date Prog Note Date: 03/25/19 - Subjective Pt reports feeling: No change Subjective: pt report he had some difficult to breath on last night, but it appear pt is comfort siting at bed to eat his breakfast now, there is no respiratory distress. he denies fever, chill, chest pain, or other complaints Current Medications - Current Medications Current Medications: Active Medications Acetaminophen (Tylenol) 650 mg PO Q4HR PRN PRN Reason: Pain 1 to 4 Last Admin: 03/21/19 05:29 Dose: 650 mg Hydrocodone Bitart/Acetaminophen ([place] 5/325) 2 tab PO Q4HR PRN PRN Reason: Pain 5 to 7 Last Admin: 03/25/19 04:07 Dose: 2 tab Albuterol () 2.5 mg INH RTQ4H PRN PRN Reason: Wheezing Last Admin: 03/24/19 16:07 Dose: 2.5 mg Albuterol/Ipratropium (Duoneb) 3 ml INH Q4HR PRN PRN Reason: Wheezing Azithromycin (Zithromax) 500 mg PO DAILY [facility] Last Admin: 03/25/19 08:03 Dose: 500 mg Docusate Sodium (Colace 250mg Capsule) 250 - 500 mg PO DAILY [facility] Last Admin: 03/25/19 08:04 Dose: 250 mg Enoxaparin Sodium (Lovenox) 40 mg SUBQ BID [facility] Last Admin: 03/25/19 08:40 Dose: 40 mg Fluconazole (Diflucan) 100 mg PO DAILY [facility] Last Admin: 03/25/19 08:03 Dose: 100 mg Furosemide (Lasix) 20 mg PO DAILY [facility] Last Admin: 03/25/19 08:04 Dose: 20 mg Hydralazine HCl (Apresoline Inj) 10 mg IVP Q2H PRN PRN Reason: Hypertensive Emergency Ceftriaxone Sodium 2 gm/ (Sodium Chloride) 100 mls @ 200 mls/hr IV DAILY [facility] Last Infusion: 03/25/19 09:22 Dose: Infused Insulin Aspart (Novolog) 1 - 9 unit SUBQ 0800,1200,1700,2100 [facility]; Protocol Last Admin: 03/25/19 08:01 Dose: Not Given Insulin Glargine (Lantus Solostar) 5 unit SUBQ QPM [facility] Last Admin: 03/24/19 20:55 Dose: 5 unit Ketorolac Tromethamine (Toradol Inj (15mg)) 15 mg IVP Q6H PRN PRN Reason: PAIN Stop: 03/26/19 20:59 Last Admin: 03/24/19 10:55 Dose: 15 mg Lidocaine HCl (Xylocaine Uro-Jet 2%) 2.5 ml UR Q6H PRN PRN Reason: PAIN Last Admin: 03/20/19 19:02 Dose: 2.5 ml Metoprolol Succinate (Toprol Xl) 50 mg PO BIDWM [facility] Last Admin: 03/25/19 08:04 Dose: 50 mg Mineral Oil (Cavilon) 1 applic TOP PRN PRN PRN Reason: Skin Care Nystatin (Nystop) 1 applic TOP BID [facility] Last Admin: 03/25/19 08:08 Dose: 1 applic Ondansetron HCl (Zofran Inj) 4 mg IVP Q6HR PRN PRN Reason: Nausea / Vomiting Last Admin: 03/25/19 08:51 Dose: 4 mg Pantoprazole Sodium (Protonix) 40 mg PO QDAC [facility] Last Admin: 03/25/19 06:31 Dose: 40 mg Polyethylene Glycol (Miralax) 17 gm PO DAILY [facility] Last Admin: 03/25/19 08:02 Dose: 17 gm Saccharomyces Boulardii (Florastor) 250 mg PO BIDWM [facility] Last Admin: 03/25/19 08:03 Dose: 250 mg Senna (Senokot) 8.6 - 17.2 mg PO DAILY [facility] Last Admin: 03/25/19 08:03 Dose: 8.6 mg Sodium Chloride (Normal Saline Flush 0.9%) 10 ml IVP PRN PRN PRN Reason: NEEDED PER PROVIDER ORDERS Last Admin: 03/24/19 10:56 Dose: 10 ml Sodium Chloride (Normal Saline Flush 0.9%) 10 ml IVP 0100,0900,1700 [facility] Last Admin: 03/25/19 08:51 Dose: 10 ml Tamsulosin HCl (Flomax) 0.4 mg PO DAILY@1730 [facility] Last Admin: 03/24/19 17:08 Dose: 0.4 mg Temazepam (Restoril) 15 mg PO QPM PRN PRN Reason: Insomnia No Known Home Medications 03/20/19 Objective - Vital Signs/Intake & Output Reviewed Vital Signs: Yes Vital Signs: Vital Signs x48h Temp Pulse Resp BP Pulse Ox 03/25/19 07:30 36.9 C 87 18 133/64 H 94 Intake & Output: Intake & Output 03/22/19 03/23/19 03/24/19 03/25/19 23:59 23:59 23:59 23:59 Intake Total 2950 2629.25 1740 870 Output Total 1400 3370 3625 1150 Balance 1550 -740.75 -1885 -280 - Objective General Appearance: positive: No acute distress, Alert. negative: Lethargic Eyes Bilateral: positive: Normal inspection, PERRL, No lid inflammation, Conjunctivae nml ENT: positive: ENT inspection nml, Pharynx nml, No signs of dehydration. negative: Purulent nasal drainage, Pharyngeal erythema, Oral lesions Neck: positive: Nml inspection, Thyroid nml, No JVD, Trachea midline. negative: Thyromegaly, Lymphadenopathy (R), Stiff neck, Swelling/bruising, Tracheal deviation Respiratory: positive: Chest non-tender, No respiratory distress, Wheezes (very mild wheezing sound at bileral low bailar lobe). negative: Rales, Rhonchi Cardiovascular: positive: Regular rate & rhythm, No murmur, No gallop. negative: Irregularly irregular, Extrasystoles, Tachycardia, Bradycardia, JVD present, Systolic murmur, Diastolic murmur Peripheral Pulses: 2+ Radial (R), 2+ Radial (L), 2+ Dorsalis pedis (R), 2+ Dorsalis pedis (L) Abdomen: positive: Non-tender, No organomegaly, Nml bowel sounds, No distention. negative: Tenderness, Guarding, Rebound Back: positive: Nml inspection. negative: CVA tenderness (R), CVA tenderness (L) Skin: positive: Warm, Dry. negative: Cyanosis, Diaphoresis, Pallor Extremities: positive: Non-tender. negative: Calf tenderness, Daniel's sign/cords Neurologic/Psychiatric: positive: Oriented x3, Mood/affect nml. negative: Weakness, Sensory loss, Facial droop, Slurred/abnml speech, Depressed mood/affect - Lab Results Fish Bones: 03/25/19 04:40 03/25/19 04:40 Other Labs: Lab Results x24hrs 05/03/25/19 03/25/19 Range/Units 07:25 04:40 04:40 WBC 8.8 (4.8-10.8) x10^3/uL RBC 4.16 L (4.70-6.10) 10^6/uL Hgb 12.6 L (14.0-18.0) g/dL Hct 37.5 L (42.0-52.0) % MCV 90.1 (80.0-94.0) fL MCH 30.3 (27.0-31.0) pg MCHC 33.7 (32.0-36.0) g/dL RDW 16.1 H (12.0-15.0) % Plt Count 145 (130-450) 10^3/uL MPV 6.2 L (7.4-11.4) fL Neut # (Auto) 7.0 H (1.5-6.6) 10^3/uL Lymph # (Auto) 0.7 L (1.5-3.5) 10^3/uL [place] # (Auto) 0.9 (0.0-1.0) 10^3/uL Eos # (Auto) 0.2 (0.0-0.7) 10^3/uL Baso # (Auto) 0.1 (0.0-0.1) 10^3/uL Absolute Nucleated RBC 0.03 x10^3/uL Nucleated RBC % 0.3 /100WBC Sodium 139 (135-145) mmol/L Potassium 4.4 (3.5-5.0) mmol/L Chloride 102 (101-111) mmol/L Carbon Dioxide 26 (21-32) mmol/L Anion Gap 11.0 (6-13) BUN 21 H (6-20) mg/dL Creatinine 1.1 (0.6-1.2) mg/dL Estimated GFR (MDRD) 65 L (>89) Glucose 145 H (70-100) mg/dL POC Whole Bld Glucose 122 H (70 - 100) mg/dL Calcium 9.1 (8.5-10.3) mg/dL 03/24/19 03/24/19 03/24/19 Range/Units 20:46 16:27 11:18 WBC (4.8-10.8) x10^3/uL RBC (4.70-6.10) 10^6/uL Hgb (14.0-18.0) g/dL Hct (42.0-52.0) % MCV (80.0-94.0) fL MCH (27.0-31.0) pg MCHC (32.0-36.0) g/dL RDW (12.0-15.0) % Plt Count (130-450) 10^3/uL MPV (7.4-11.4) fL Neut # (Auto) (1.5-6.6) 10^3/uL Lymph # (Auto) (1.5-3.5) 10^3/uL [place] # (Auto) (0.0-1.0) 10^3/uL Eos # (Auto) (0.0-0.7) 10^3/uL Baso # (Auto) (0.0-0.1) 10^3/uL Absolute Nucleated RBC x10^3/uL Nucleated RBC % /100WBC Sodium (135-145) mmol/L Potassium (3.5-5.0) mmol/L Chloride (101-111) mmol/L Carbon Dioxide (21-32) mmol/L Anion Gap (6-13) BUN (6-20) mg/dL Creatinine (0.6-1.2) mg/dL Estimated GFR (MDRD) (>89) Glucose (70-100) mg/dL POC Whole Bld Glucose 145 H 126 H 138 H (70 - 100) mg/dL Calcium (8.5-10.3) mg/dL ABX Reporting Has patient been on IV antibiotics over the past 48 hours?: Yes Sepsis Event Note (H) - Evaluation Current Stage of Sepsis: Ruled out - Sepsis Criteria Sepsis Criteria: WBC count greater than 12,000 or less than 4000, Renal: urine output less than 0.5ml/kg/hr for 2 hours or creatinine gr Assessment/Plan - Problem List (1) UTI (urinary tract infection) Impression: 03/25 day 5 treat for UTI, continue Rocephin and Probiotics 03/24 will continue to treat his UTI for 7-10 days, this is day 4 for treatment 03/23 continue treat UTI, this is day 3 for treatment of UTI continue Rocephin UA reveal positive for beta hemolytic strep B. WBC is reduced to 9.3 today continue antibiotics IV of Rocephin will d/c Baez cath, pt report he had no Baez at home, no issue for urination pt is clinic stable for d/c now (2) NANNETTE (acute kidney injury) 03/25 stable, continue keep hydration and lab monitor 03/24 creatinine is slight improved, as his baseline continue keep hydration, and lab monitor 03/23 stable, continue lab monitor improved, creatinine form 2 at admission to 1.3 today, but precaution of fluid overload continue gently IVF of NC continue lab monitor (3) Fall 03/25 continue PT/OT 03/24 continue PT/OT 01/21 continue PT/OT pt is recommended by PT/OT for SNF and pt is unsafe to be d/c to home pt had fall at home, consult with PT/OT, plan to d/c to SNF discussed with pt about loss of his weight (4) Uncontrolled diabetes mellitus 03/24 good controlled glucose level, continue slide scale, ACHS, hypoglycemia protocol 03/23 good controlled glucose level, continue slide scale pt did not take his DM meds at home for a while, A1C is 6.7 continue slide scale, ACHS continue hypoglycemia (5) Right ankle sprain Impression: 03/24 stable, no complaint. continue nurse support and care there is soft tissue swelling noted around the right ankle, low calf continue PT/OT fall precaution (6) Essential hypertension 03/24 stable, continue clinic management, and vital monitor Continue to monitor blood pressure, IV hydralazine as needed (7) Morbid obesity with BMI of 40.0-44.9, adult Impression: Current BMI of 43.1, discussed with pt about loss of weight (8) lymphedema Impression: 03/24 stable, as his baseline, no complaint at this time continue support and nurse care 03/23 pt refused to complete US of bilateral lower extremities to r/o DVT. the swelling is reduced and erythema also reduced. will check D-dimer but more likely ther is no DVT at his lower extremities pt report he had worsening of his bilateral edema and swelling. 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 US of retroperitoneal are unremarkable. pt has hx of DM2, it is likely caused by DM2 complication continue Baez and Baez care per nurse, I&O advise pt followup urologist for further management. nurse report pt has no urine over 8 hours, bladder scan is unremarkable. order ST of US of retroperitoneal, will followup, order IVF now continue lab monitor and vital monitor (11) pneumonia pt had decrease of O2 sat to 92%, and present some SOB CXR reveals left mild basilar infiltrate with Tiny effusion add Azithromycin to Rocephin low dosage of Lasix albuterol and Duoneb PRN vital and lab monitor
[2019-03-25] MEDS: TAMSULOSIN 0.4 MG CAPSULE PO SCH (17:09)
[2019-03-25] MEDS: INSULIN GLARGINE 300 UNIT/3 ML PEN SUBQ SCH (20:24)
[2019-03-26] MEDS: SODIUM CHLORIDE FLUSH 0.9% 10 ML SYRINGE IVP SCH ×3 (00:22→17:09)
[2019-03-26] MEDS: HYDROcod/ACETAM 5/325 MG TABLET PO PRN ×3 (00:35→21:03)
[2019-03-26 05:32] LABS: BASOPHILS % (AUTO) 0.5 %; EOSINOPHILS # (AUTO) 0.2 10^3/uL (0.0-0.7); EOSINOPHILS % (AUTO) 2.4 %; HGB - HEMOGLOBIN 11.9 g/dL (14.0-18.0); LYMPHOCYTES # (AUTO) 1.5 10^3/uL (1.5-3.5); LYMPHOCYTES % (AUTO) 19.5 %; MEAN CORPUSCULAR HEMOGLOBIN 30.1 pg (27.0-31.0); MEAN CORPUSCULAR HGB CONC 33.3 g/dL (32.0-36.0); MEAN CORPUSCULAR VOLUME 90.4 fL (80.0-94.0); MEAN PLATELET VOLUME 6.2 fL (7.4-11.4); MONOCYTES % (AUTO) 12.4 %; NEUTROPHILS # (AUTO) 5.2 10^3/uL (1.5-6.6); NEUTROPHILS % (AUTO) 65.2 %; PLT - PLATELET COUNT 153 10^3/uL (130-450); RED BLOOD COUNT 3.96 10^6/uL (4.70-6.10); RED CELL DISTRIBUTION WIDTH 16.1 % (12.0-15.0); WHITE BLOOD COUNT 7.9 x10^3/uL (4.8-10.8)
[2019-03-26 05:43] LABS: CALCIUM 9.4 mg/dL (8.5-10.3); CREATININE 1.1 mg/dL (0.6-1.2)
[2019-03-26] MEDS: PANTOPRAZOLE 40 MG TABLET PO SCH (06:56)
[2019-03-26] MEDS: INSULIN ASPART 300 UNIT/3 ML PEN SUBQ SCH ×4 (10:06→20:32)
--- NOTE | 2019-03-26 10:06 | ADVANCE CARE PLANNING NOTE ---
Advance Care Planning - Date/Time Date: 03/26/19 Time: 10:04 - Purpose of encounter Text: advance care plan and quality life plan to discuss with pt - Parties in attendance Parties in attendance: pt and me - Decisional capacity Decisional capacity of: pt has the capacity to make his own decision - Subjective/Patient's story Subjective/Patient's story: pt report he Recently moved here from [place], now is living in [place] with his partner- Will and their 2 [facility]. He had one son who at age 35 years and had a daughter named Laura who is living in [place] with several grandchildren. He denies the use of tobacco, alcohol or illicit drug use. He felt more difficult to ambulate because of his obesity, back pain, and ankle pain. he had a fall recently, fortunately which did not cause his bone fracture. He state he is more often just staying at bed to eat and watch TV. He felt his quality life is worsening because of all these his physiological and psychological distress. - Objective/Medical story Objective/Medical Story: pt has a significant medical history including hypertension, hyperlipidemia, diabetes mellitus type 2, obesity, sleep apnea, falls, and nocturia, UTI, urinary retention now requiring his indwelling Baez Catheter, weakness, back pain, difficult to ambulate. - Goals of Care Goals of care determinations: keep the current full code status, will consider current limited quality life status and discussed with his partner and family to make further decision - Plan Plan: keep current code status, full code - Code Status Code Status: Attempt Resuscitation - Time Spent on Advance Care Planning Time spent on advance care plannin
[2019-03-26] MEDS: POLYETHYLENE GLYCOL 3350 17 GM PACKET PO SCH (10:07)
[2019-03-26] MEDS: AZITHROMYCIN 250 MG TABLET PO SCH (10:09)
[2019-03-26] MEDS: FLUCONAZOLE 100 MG TABLET PO SCH (10:10)
[2019-03-26] MEDS: SENNA 8.6 MG TABLET PO SCH (10:10)
[2019-03-26] MEDS: METOPROLOL SUCCINATE 50 MG TABLET PO SCH ×2 (10:10→17:08)
[2019-03-26] MEDS: DOCUSATE SODIUM 250 MG CAPSULE PO SCH (10:10)
[2019-03-26] MEDS: FUROSEMIDE 20 MG TABLET PO SCH (10:10)
[2019-03-26] MEDS: SACCHAROMYCES BOULARDII 250 MG CAPSULE PO SCH ×2 (10:11→17:08)
[2019-03-26] MEDS: NYSTATIN POWDER 15 GM TOP SCH ×2 (10:11→20:33)
[2019-03-26] MEDS: cefTRIAXone 2 GM in SODIUM CHLORIDE 0.9% MINIBAG 100 ML IV SCH (10:12)
[2019-03-26] MEDS: ENOXAPARIN 40 MG/0.4 ML SYRINGE SUBQ SCH ×2 (10:12→20:31)
[2019-03-26] MEDS: ONDANSETRON 4 MG/2 ML VIAL IVP PRN (11:03)
--- NOTE | 2019-03-26 11:36 | PROVIDER PROGRESS NOTE ---
Subjective - Prog Note Date Prog Note Date: 03/26/19 - Subjective Pt reports feeling: Improved Subjective: pt feel better and had a good sleep and report his breath is better. encourage pt with nurse and PT/OT ambulate. pt denies fever, chill, chest pain. pt is planed to be d/c on tomorrow Current Medications - Current Medications Current Medications: Active Medications Acetaminophen (Tylenol) 650 mg PO Q4HR PRN PRN Reason: Pain 1 to 4 Last Admin: 03/21/19 05:29 Dose: 650 mg Hydrocodone Bitart/Acetaminophen (Reyno 5/325) 2 tab PO Q4HR PRN PRN Reason: Pain 5 to 7 Last Admin: 03/26/19 00:35 Dose: 2 tab Albuterol () 2.5 mg INH RTQ4H PRN PRN Reason: Wheezing Last Admin: 03/24/19 16:07 Dose: 2.5 mg Albuterol/Ipratropium (Duoneb) 3 ml INH Q4HR PRN PRN Reason: Wheezing Last Admin: 03/26/19 07:21 Dose: 3 ml Azithromycin (Zithromax) 500 mg PO DAILY [facility] Last Admin: 03/26/19 10:09 Dose: 500 mg Docusate Sodium (Colace 250mg Capsule) 250 - 500 mg PO DAILY [facility] Last Admin: 03/26/19 10:10 Dose: 250 mg Enoxaparin Sodium (Lovenox) 40 mg SUBQ BID [facility] Last Admin: 03/26/19 10:12 Dose: 40 mg Fluconazole (Diflucan) 100 mg PO DAILY [facility] Last Admin: 03/26/19 10:10 Dose: 100 mg Furosemide (Lasix) 20 mg PO DAILY [facility] Last Admin: 03/26/19 10:10 Dose: 20 mg Hydralazine HCl (Apresoline Inj) 10 mg IVP Q2H PRN PRN Reason: Hypertensive Emergency Ceftriaxone Sodium 2 gm/ (Sodium Chloride) 100 mls @ 200 mls/hr IV DAILY [facility] Last Infusion: 03/26/19 11:02 Dose: Infused Insulin Aspart (Novolog) 1 - 9 unit SUBQ 0800,1200,1700,2100 [facility]; Protocol Last Admin: 03/26/19 10:06 Dose: Not Given Insulin Glargine (Lantus Solostar) 5 unit SUBQ QPM [facility] Last Admin: 03/25/19 20:24 Dose: 5 unit Ketorolac Tromethamine (Toradol Inj (15mg)) 15 mg IVP Q6H PRN PRN Reason: PAIN Stop: 03/26/19 20:59 Last Admin: 03/24/19 10:55 Dose: 15 mg Lidocaine HCl (Xylocaine Uro-Jet 2%) 2.5 ml UR Q6H PRN PRN Reason: PAIN Last Admin: 03/20/19 19:02 Dose: 2.5 ml Metoprolol Succinate (Toprol Xl) 50 mg PO BIDWM [facility] Last Admin: 03/26/19 10:10 Dose: 50 mg Mineral Oil (Cavilon) 1 applic TOP PRN PRN PRN Reason: Skin Care Last Admin: 03/25/19 20:28 Dose: 1 applic Nystatin (Nystop) 1 applic TOP BID [facility] Last Admin: 03/26/19 10:11 Dose: 1 applic Ondansetron HCl (Zofran Inj) 4 mg IVP Q6HR PRN PRN Reason: Nausea / Vomiting Last Admin: 03/26/19 11:03 Dose: 4 mg Pantoprazole Sodium (Protonix) 40 mg PO QDAC [facility] Last Admin: 03/26/19 06:56 Dose: 40 mg Polyethylene Glycol (Miralax) 17 gm PO DAILY [facility] Last Admin: 03/26/19 10:07 Dose: 17 gm Saccharomyces Boulardii (Florastor) 250 mg PO BIDWM [facility] Last Admin: 03/26/19 10:11 Dose: 250 mg Senna (Senokot) 8.6 - 17.2 mg PO DAILY [facility] Last Admin: 03/26/19 10:10 Dose: 8.6 mg Sodium Chloride (Normal Saline Flush 0.9%) 10 ml IVP PRN PRN PRN Reason: NEEDED PER PROVIDER ORDERS Last Admin: 03/24/19 10:56 Dose: 10 ml Sodium Chloride (Normal Saline Flush 0.9%) 10 ml IVP 0100,0900,1700 [facility] Last Admin: 03/26/19 10:21 Dose: 10 ml Tamsulosin HCl (Flomax) 0.4 mg PO DAILY@1730 [facility] Last Admin: 03/25/19 17:09 Dose: 0.4 mg Temazepam (Restoril) 15 mg PO QPM PRN PRN Reason: Insomnia No Known Home Medications 03/20/19 Objective - Vital Signs/Intake & Output Reviewed Vital Signs: Yes Vital Signs: Vital Signs x48h Temp Pulse Pulse Resp BP Pulse Ox 03/26/19 08:51 18 94 03/26/19 08:50 18 86 L 03/26/19 07:33 36.5 C 80 18 141/71 H 97 03/26/19 07:30 85 16 Intake & Output: Intake & Output 03/23/19 03/24/19 03/25/19 03/26/19 23:59 23:59 23:59 23:59 Intake Total 2629.25 1740 1730 800 Output Total 3370 3625 2850 625 Balance -740.75 -1885 -1120 175 - Objective General Appearance: positive: No acute distress, Alert. negative: Lethargic Eyes Bilateral: positive: Normal inspection, PERRL, No lid inflammation, Conjunctivae nml ENT: positive: ENT inspection nml, Pharynx nml, No signs of dehydration. negative: Purulent nasal drainage, Pharyngeal erythema, Oral lesions Neck: positive: Nml inspection, Thyroid nml, No JVD, Trachea midline. negative: Thyromegaly, Lymphadenopathy (R), Lymphadenopathy (L), Stiff neck, Swelling/bruising, Tracheal deviation Respiratory: positive: Chest non-tender, No respiratory distress, Breath sounds nml. negative: Wheezes, Rales, Rhonchi Cardiovascular: positive: Regular rate & rhythm, No murmur, No gallop. negative: Irregularly irregular, Extrasystoles, Tachycardia, Bradycardia, JVD present, Systolic murmur, Diastolic murmur Peripheral Pulses: 2+ Radial (R), 2+ Radial (L), 2+ Dorsalis pedis (R), 2+ Dorsalis pedis (L) Abdomen: positive: Non-tender, No organomegaly, Nml bowel sounds. negative: Tenderness, Guarding, Rebound Back: positive: Nml inspection. negative: CVA tenderness (R), CVA tenderness (L) Skin: positive: Warm, Dry. negative: Cyanosis, Diaphoresis, Pallor Extremities: positive: Non-tender. negative: Calf tenderness, Daniel's sign/cords Neurologic/Psychiatric: positive: Oriented x3, Mood/affect nml. negative: Weakness, Sensory loss, Facial droop, Slurred/abnml speech, Depressed mood/affect - Lab Results Fish Bones: 03/26/19 04:50 03/26/19 04:50 Other Labs: Lab Results x24hrs 03/26/19 03/26/19 03/26/19 Range/Units 07:36 04:50 04:50 WBC 7.9 (4.8-10.8) x10^3/uL RBC 3.96 L (4.70-6.10) 10^6/uL Hgb 11.9 L (14.0-18.0) g/dL Hct 35.8 L (42.0-52.0) % MCV 90.4 (80.0-94.0) fL MCH 30.1 (27.0-31.0) pg MCHC 33.3 (32.0-36.0) g/dL RDW 16.1 H (12.0-15.0) % Plt Count 153 (130-450) 10^3/uL MPV 6.2 L (7.4-11.4) fL Neut # (Auto) 5.2 (1.5-6.6) 10^3/uL Lymph # (Auto) 1.5 (1.5-3.5) 10^3/uL [place] # (Auto) 1.0 (0.0-1.0) 10^3/uL Eos # (Auto) 0.2 (0.0-0.7) 10^3/uL Baso # (Auto) 0.0 (0.0-0.1) 10^3/uL Absolute Nucleated RBC 0.00 x10^3/uL Nucleated RBC % 0.1 /100WBC Sodium 140 (135-145) mmol/L Potassium 4.5 (3.5-5.0) mmol/L Chloride 100 L (101-111) mmol/L Carbon Dioxide 31 (21-32) mmol/L Anion Gap 9.0 (6-13) BUN 16 (6-20) mg/dL Creatinine 1.1 (0.6-1.2) mg/dL Estimated GFR (MDRD) 65 L (>89) Glucose 111 H (70-100) mg/dL POC Whole Bld Glucose 110 H (70 - 100) mg/dL Calcium 9.4 (8.5-10.3) mg/dL 03/25/19 03/25/19 Range/Units 20:18 16:33 WBC (4.8-10.8) x10^3/uL RBC (4.70-6.10) 10^6/uL Hgb (14.0-18.0) g/dL Hct (42.0-52.0) % MCV (80.0-94.0) fL MCH (27.0-31.0) pg MCHC (32.0-36.0) g/dL RDW (12.0-15.0) % Plt Count (130-450) 10^3/uL MPV (7.4-11.4) fL Neut # (Auto) (1.5-6.6) 10^3/uL Lymph # (Auto) (1.5-3.5) 10^3/uL [place] # (Auto) (0.0-1.0) 10^3/uL Eos # (Auto) (0.0-0.7) 10^3/uL Baso # (Auto) (0.0-0.1) 10^3/uL Absolute Nucleated RBC x10^3/uL Nucleated RBC % /100WBC Sodium (135-145) mmol/L Potassium (3.5-5.0) mmol/L Chloride (101-111) mmol/L Carbon Dioxide (21-32) mmol/L Anion Gap (6-13) BUN (6-20) mg/dL Creatinine (0.6-1.2) mg/dL Estimated GFR (MDRD) (>89) Glucose (70-100) mg/dL POC Whole Bld Glucose 131 H 129 H (70 - 100) mg/dL Calcium (8.5-10.3) mg/dL ABX Reporting Has patient been on IV antibiotics over the past 48 hours?: Yes Sepsis Event Note (H) - Evaluation Current Stage of Sepsis: Ruled out - Sepsis Criteria Sepsis Criteria: WBC count greater than 12,000 or less than 4000, Renal: urine output less than 0.5ml/kg/hr for 2 hours or creatinine gr Assessment/Plan - Problem List (1) UTI (urinary tract infection) Impression: 03/26 continue treat with antibiotics, this day 6 treat with antibiotics 03/25 day 5 treat for UTI, continue Rocephin and Probiotics 03/24 will continue to treat his UTI for 7-10 days, this is day 4 for treatment 03/23 continue treat UTI, this is day 3 for treatment of UTI continue Rocephin UA reveal positive for beta hemolytic strep B. WBC is reduced to 9.3 today continue antibiotics IV of Rocephin will d/c Baez cath, pt report he had no Baez at home, no issue for urination pt is clinic stable for d/c (2) NANNETTE (acute kidney injury) 03/26 continue stable/improved. GFR is 65, continue keep hydration and lab monitor 03/25 stable, continue keep hydration and lab monitor 03/24 creatinine is slight improved, as his baseline continue keep hydration, and lab monitor 03/23 stable, continue lab monitor improved, creatinine form 2 at admission to 1.3 today, but precaution of fluid overload continue gently IVF of NC continue lab monitor (3) Fall 03/26 continue PT/OT, encourage Pt safely ambulate with nurse and PT/OT 03/25 continue PT/OT 03/24 continue PT/OT 01/21 continue PT/OT pt is recommended by PT/OT for SNF and pt is unsafe to be d/c to home pt had fall at home, consult with PT/OT, plan to d/c to SNF discussed with pt about loss of his weight (4) Uncontrolled diabetes mellitus 03/24 good controlled glucose level, continue slide scale, ACHS, hypoglycemia protocol 03/23 good controlled glucose level, continue slide scale pt did not take his DM meds at home for a while, A1C is 6.7 continue slide scale, ACHS continue hypoglycemia (5) Right ankle sprain Impression: 03/24 stable, no complaint. continue nurse support and care there is soft tissue swelling noted around the right ankle, low calf continue PT/OT fall precaution (6) Essential hypertension 03/24 stable, continue clinic management, and vital monitor Continue to monitor blood pressure, IV hydralazine as needed (7) Morbid obesity with BMI of 40.0-44.9, adult Impression: Current BMI of 43.1, discussed with pt about loss of weight (8) lymphedema Impression: 03/24 stable, as his baseline, no complaint at this time continue support and nurse care 03/23 pt refused to complete US of bilateral lower extremities to r/o DVT. the swelling is reduced and erythema also reduced. will check D-dimer but more likely ther is no DVT at his lower extremities pt report he had worsening of his bilateral edema and swelling. In the examination, pt had parts counterman of lymphedema, with erythema at bilateral calf pt's lower extremities's skin is intact, continue wound consult, will followup order US of leg to r/o DVT rise of legs encourage ambulation (9) Medical non-compliance pt admitted he did not take his medications for quite long time consult for medical compliance, and Encourage pt for medical compliance (10) acute urinary retention 03/26 stable, continue to have Baez and Baez care 03/25 stable, continue Baez and nurse Baez care 03/24 pt can not urinate by his own. US of retroperitoneal are unremarkable. pt has hx of DM2, it is likely caused by DM2 complication continue Baez and Baez care per nurse, I&O advise pt followup urologist for further management. nurse report pt has no urine over 8 hours, bladder scan is unremarkable. order ST of US of retroperitoneal, will followup, order IVF now continue lab monitor and vital monitor (11) pneumonia 03/26 improved. today pt has 94% on 1 liter of O2, WBC is normal, and no fever, cough is controlled. continue antibiotics Azithromycin and Rocephin encourage ambulate continue breath treatment as needed continue supplement O2 as needed pt had decrease of O2 sat to 92%, and present some SOB CXR reveals left mild basilar infiltrate with Tiny effusion add Azithromycin to Rocephin low dosage of Lasix albuterol and Duoneb PRN vital and lab monitor (4) Fall Qualifiers: Encounter type: subsequent encounter Qualified Code(s): W19.XXXD - Unspecified fall, subsequent encounter (6) Right ankle sprain Qualifiers: Encounter type: initial encounter Involved ligament of ankle: unspecified ligament Qualified Code(s): S93.401A - Sprain of unspecified ligament of right ankle, initial encounter (8) Diabetes Qualifiers: Diabetes mellitus type: type 2 Diabetes mellitus care home insulin use: enrico ng care home use Diabetes mellitus complication status: with unspecified complications Qualified Code(s): E11.8 - Type 2 diabetes mellitus with unspecified complications
[2019-03-26] MEDS: TAMSULOSIN 0.4 MG CAPSULE PO SCH (17:08)
[2019-03-26] MEDS: INSULIN GLARGINE 300 UNIT/3 ML PEN SUBQ SCH (20:32)
[2019-03-27] MEDS: SODIUM CHLORIDE FLUSH 0.9% 10 ML SYRINGE IVP SCH ×3 (01:16→16:57)
[2019-03-27] MEDS: HYDROcod/ACETAM 5/325 MG TABLET PO PRN ×5 (01:32→22:29)
[2019-03-27 05:45] LABS: BASOPHILS % (AUTO) 0.4 %; EOSINOPHILS # (AUTO) 0.2 10^3/uL (0.0-0.7); EOSINOPHILS % (AUTO) 2.4 %; HGB - HEMOGLOBIN 12.2 g/dL (14.0-18.0); LYMPHOCYTES # (AUTO) 1.4 10^3/uL (1.5-3.5); LYMPHOCYTES % (AUTO) 18.1 %; MEAN CORPUSCULAR HEMOGLOBIN 30.5 pg (27.0-31.0); MEAN CORPUSCULAR HGB CONC 33.8 g/dL (32.0-36.0); MEAN CORPUSCULAR VOLUME 90.4 fL (80.0-94.0); MEAN PLATELET VOLUME 6.1 fL (7.4-11.4); NEUTROPHILS # (AUTO) 5.1 10^3/uL (1.5-6.6); NEUTROPHILS % (AUTO) 66.1 %; PLT - PLATELET COUNT 169 10^3/uL (130-450); RED BLOOD COUNT 4.01 10^6/uL (4.70-6.10); RED CELL DISTRIBUTION WIDTH 16.5 % (12.0-15.0); WHITE BLOOD COUNT 7.7 x10^3/uL (4.8-10.8)
[2019-03-27 05:52] LABS: CALCIUM 9.1 mg/dL (8.5-10.3); CREATININE 1.1 mg/dL (0.6-1.2)
[2019-03-27] MEDS: PANTOPRAZOLE 40 MG TABLET PO SCH (06:21)
[2019-03-27] MEDS: ALBUTEROL NEB 2.5 MG/3 ML INH PRN (07:20)
[2019-03-27] MEDS: INSULIN ASPART 300 UNIT/3 ML PEN SUBQ SCH ×4 (08:04→20:42)
[2019-03-27] MEDS: FUROSEMIDE 20 MG TABLET PO SCH (08:05)
[2019-03-27] MEDS: DOCUSATE SODIUM 250 MG CAPSULE PO SCH (08:05)
[2019-03-27] MEDS: SACCHAROMYCES BOULARDII 250 MG CAPSULE PO SCH ×2 (08:05→17:18)
[2019-03-27] MEDS: FLUCONAZOLE 100 MG TABLET PO SCH (08:06)
[2019-03-27] MEDS: SENNA 8.6 MG TABLET PO SCH (08:06)
[2019-03-27] MEDS: AZITHROMYCIN 250 MG TABLET PO SCH (08:07)
[2019-03-27] MEDS: METOPROLOL SUCCINATE 50 MG TABLET PO SCH ×2 (08:07→17:18)
[2019-03-27] MEDS: ENOXAPARIN 40 MG/0.4 ML SYRINGE SUBQ SCH ×2 (08:08→20:42)
[2019-03-27] MEDS: POLYETHYLENE GLYCOL 3350 17 GM PACKET PO SCH (08:08)
[2019-03-27] MEDS: cefTRIAXone 2 GM in SODIUM CHLORIDE 0.9% MINIBAG 100 ML IV SCH (08:30)
--- NOTE | 2019-03-27 09:48 | Discharge Plan ---
"Discharge Plan for SNF / [facility] - Discharge Plan And Transition Orders Disposition: 03 SNF DC/Xfer Condition: Poor Allergies and Adverse Reactions: Allergies Allergy/AdvReac Type Severity Reaction Status Date / Time codeine Allergy Rash Verified 03/20/19 09:27 - SNF / [facility] Transition Orders Admit to (Facility): [facility] in [facility] Under the care of (Name): health provider at [facility] Discharge Diagnosis: UTI, NANNETTE, Fall, uncontrolled DM2, right ankle sprain, HTN, Obesity, chronic Lymphedema, Medical non-compliance, urinary retention, pneumonia Medicare Certification Statement: I certify that [facility] intermediate care is medically necessary on a continuing basis for any of the conditions for which she/he is receiving care during hospitalization. Notify PCP of admission and forward orders to primary provider for signature. Weight on admission and: Daily Call PCP immediately if weight increases by: 2 kg Other Notification Orders: Call PCP immediately if patient develops dyspnea, chest pain/tightness or edema. House Bowel Program: Yes Additional Bowel Program Orders: If no BM after 2 days, nurse may give M.O.M. 30ml PO PRN and/or ducolax Supp 1 AR and/or VERO 250mg P.O., and/or senna 1-2 tabs PO. On day 3 nurse may give repeat above order until residents constipation is resolved. Annual Influenza Vaccine (between Jun 26 and January 23): Yes Two-step PPD per [facility] [phone] or approved exception documents: Yes Treatments & Other Orders: pt may followup health provider of [facility] when pt is arrival to, may followup urologist since pt has new onset of urinary retention, continue PT/OT evaluation and treatment. Oxygen Orders: 2 liter of O2 with NC Medication Orders: PLEASE REFER TO THE DISCHARGE MEDICATION LIST. Insulin Orders?: No - Medications New Prescriptions: HYDROcod/ACETAM 5/325 [Zapata 5/325] 2 tab PO Q4HR PRN #30 tablet PRN Reason: Pain 5 to 7 Ipratropium/Albuterol [Duoneb] 3 ml INH Q4HR PRN #20 neb PRN Reason: Wheezing Albuterol 2.5 mg INH RTQ4H PRN #20 neb PRN Reason: Wheezing Cephalexin [Keflex] 500 mg PO BID #10 capsule Metoprolol Succinate [Toprol Xl] 50 mg PO BIDWM #20 tablet Saccharomyces Boulardii [Florastor] 250 mg PO BID #10 capsule - Diet Type: Geriatric Texture: Regular Liquids: Thin May have monthly special meal: Yes - Therapies | Activity Therapy: Evaluation | Treat if indicated: PT, OT Rehabilitation Potential: Maximize functional status Activity: Activity as Tolerated Additional Instructions: pt may followup health [facility] when pt is arrival to, may followup urologist since pt has new onset of urinary retention, continue PT/OT evaluation and treatment."
--- NOTE | 2019-03-27 10:15 | DISCHARGE SUMMARY ---
Discharge Summary Discharge Date: 03/27/19 (\\) Discharging Provider: HAYES Condition at Discharge: Poor Discharge Disposition: SNF DC/Xfer Discharge Facility Name: [facility] - DIAGNOSES Admission Diagnoses: (1) Fall (2) Pyelonephritis (3) Medical non-compliance (4) Uncontrolled diabetes mellitus (5) Hypertensive emergency (6) NANNETTE (acute kidney injury) (7) Right ankle sprain (8) Essential hypertension (9) Urinary retention (10) Morbid obesity with BMI of 40.0-44.9, adult (11) Leg edema Discharge Diagnoses with Status of Each Condition: (1) UTI (urinary tract infection) (2) NANNETTE (acute kidney injury) (3) Fall (4) diabetes mellitus (5) Right ankle sprain (6) Essential hypertension (7) Morbid obesity with BMI of 40.0-44.9, adult (8) chronic lymphedema (9) Medical non-compliance (10) acute urinary retention (11) pneumonia (12)respiratory distress with hypoxia (13) sleep apnea with CPAP - HPI History of Present Illness: refer from Ms Martinez's HPI on 03/20/19 Rubén BaumPaul Medina is a morbidly obese 78-year old male with a past medical history of hypertension, hyperlipidemia, diabetes mellitus type 2, obesity, sleep apnea, falls, and nocturia. He was brought in by EMS to our ED after falling from the toilet and could not get up. He states that his daily routine is that he gets himself on the toilet and when he is finished, his partner, Will will help lift him to a standing position. Today during this process, he could not support his weight and fell to the floor. He states that for the past 48 hours, he has been more fatigued, nauseated, was having dry heaves, poor appetite, and increased dysuria. He appears profoundly unkept, and in very poor health. He admits to being noncompliant with his health and stopped taking his diabetic and blood pressure medications over one year ago. He states that he does not have a primary care provider since the "last lady in [place] was rude to him". He states that each day he watches TV and does not usually leave the house. Labs show a WBC count of 16.8, H/H of 15.5/47.3, platelet count of 137, neutrophil # 15, sodium of 135, potassium of 3.9, chloride 98, BUN 31, creatinine 2.0, GFR 32, glucose 184, total bili 1.5, troponin 0.04, BNP 94with no other lab abnormalities. A Hemoglobin A1C is pending. Imaging showed no acute pneumonia, no fractures of the right ankle. Urine was obtained via straight cath, which was described as "milky", appeared to be infectious and the culture is pending. On my exam, the patient is alert, seemed to be a good historian, and complained of feeling hungry, mid- back pain, fatigue, and had a nasal drip. He denied chest pain, chest pressure, pal pitations, vomiting, diarrhea, bleeding, a new rash, or a new cough. He will be admitted for further treatment of this complicated UTI, fall with syncope and hypertensive emergency. - HOSPITAL COURSE Hospital Course: 1) UTI (urinary tract infection) UA cultur was positive beta hemolytic Strep Group B. Pt is prescribed Keflex to continue finishing the treatment course. (2) NANNETTE (acute kidney injury) improved and stable as pt's baseline (3) Fall continue PT/OT in [facility] (4) diabetes mellitus pt's A1C is 6.7. Glucose level is good controlled at hospial. pt is very obese, it is quite difficult for pt to measure glucose and injection of insulin. pt has no home meds in his [employer] meds list. pt is prescribed Metformin now and followup PCP for further management. (5) Right ankle sprain stable, pain control with prescribed Percocet. continue PT/OT in [facility] (6) Essential hypertension stable, pt is prescribed Metoprolol, followup PCP (7) Morbid obesity with BMI of 40.0-44.9, adult encourage pt loss of weight (8) chronic lymphedema chronic and stable (9) Medical non-compliance advise pt for medical compliance (10) acute urinary retention pt can not urinate in hospital. pt is on Baez catheter now, please followup Baez catheter care, and followup urologist for further evaluation and management (11) pneumonia stable/improved, pt has 98% sat on 2 liter of O2. WBC is normal. pt has no fever, chill. pt is prescribed Keflex to finish the treatment course. (12)respiratory distress with hypoxia stable/improved, pt has 98% sat on 2 liter of O2 now. pt is prescribed Albuterol and Duoneb as needed. (13) sleep apnea with CPAP stable, pt has home CPAP, followup PCP for further management. - ALLERGIES Allergies/Adverse Reactions: Allergies Allergy/AdvReac Type Severity Reaction Status Date / Time codeine Allergy Rash Verified 03/20/19 09:27 - MEDICATIONS Home Medications: Ambulatory Orders Medication Instructions Recorded Confirmed Albuterol 2.5 mg INH RTQ4H PRN #20 neb 03/27/19 Cephalexin [Keflex] 500 mg PO BID #10 capsule 03/27/19 HYDROcod/ACETAM 5/325 [Varney 5/325] 2 tab PO Q4HR PRN #30 tablet 03/27/19 Ipratropium/Albuterol [Duoneb] 3 ml INH Q4HR PRN #20 neb 03/27/19 Metoprolol Succinate [Toprol Xl] 50 mg PO BIDWM #20 tablet 03/27/19 Saccharomyces Boulardii [Florastor] 250 mg PO BID #10 capsule 03/27/19 metFORMIN [Glucophage] 850 mg PO BID #20 tablet 03/27/19 - PHYSICAL EXAM AT DISCHARGE General Appearance: positive: No acute distress, Alert. negative: Lethargic Eyes Bilateral: positive: Normal inspection, PERRL, No lid inflammation, Conjunctivae nml ENT: positive: ENT inspection nml, Pharynx nml, No signs of dehydration. negative: Purulent nasal drainage, Pharyngeal erythema, Oral lesions Neck: positive: Nml inspection, Thyroid nml, No JVD, Trachea midline. negative: Thyromegaly, Lymphadenopathy (R), Lymphadenopathy (L), Stiff neck, Sw elling/bruising, Tracheal deviation Respiratory: positive: Chest non-tender, No respiratory distress, Breath sounds nml. negative: Wheezes, Rales, Rhonchi Cardiovascular: positive: Regular rate & rhythm, No murmur, No gallop. negative: Irregularly irregular, Extrasystoles, Tachycardia, Bradycardia, JVD present, Systolic murmur, Diastolic murmur Peripheral Pulses: positive: 2+ Abdomen: positive: Non-tender, No organomegaly, Nml bowel sounds. negative: Tenderness, Guarding, Rebound Back: positive: Nml inspection. negative: CVA tenderness (R), CVA tenderness (L) Skin: positive: Warm, Dry. negative: Cyanosis, Diaphoresis, Pallor Extremities: positive: Non-tender. negative: Calf tenderness, Joint swelling, Daniel's sign/cords Neurologic/Psychiatric: positive: Oriented x3, Mood/affect nml. negative: Weakness, Sensory loss, Facial droop, Slurred/abnml speech, Depressed mood/affect - LABS Result Diagrams: 03/27/19 05:10 03/27/19 05:10 - SEPSIS Current Stage of Sepsis: Ruled out Sepsis Criteria: WBC count greater than 12,000 or less than 4000, Renal: urine output less than 0.5ml/kg/hr for 2 hours or creatinine gr - QUALITY (Female Hip Fx Only) Was patient sent home on osteoporosis medication?: No - FOLLOW UP Follow Up: pt may followup health provider of [facility] when pt is arrival to, may followup urologist since pt has new onset of urinary retention, continue PT/OT evaluation and treatment. - TIME SPENT Time Spent in Discharge (Minutes): 55
[2019-03-27] MEDS: NYSTATIN POWDER 15 GM TOP SCH ×2 (12:50→22:24)
--- NOTE | 2019-03-27 15:45 | PROVIDER PROGRESS NOTE ---
Subjective - Prog Note Date Prog Note Date: 03/27/19 - Subjective Pt reports feeling: Improved Subjective: pt report he breath is good, pt denies fever, cough, chest pain. SW reported on yesterday pt was planned to be d/c on today to [facility]. 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 it seems pt can not be d/c today. Current Medications - Current Medications Current Medications: Active Medications Acetaminophen (Tylenol) 650 mg PO Q4HR PRN PRN Reason: Pain 1 to 4 Last Admin: 03/21/19 05:29 Dose: 650 mg Hydrocodone Bitart/Acetaminophen ([place] 5/325) 2 tab PO Q4HR PRN PRN Reason: Pain 5 to 7 Last Admin: 03/27/19 10:36 Dose: 2 tab Albuterol () 2.5 mg INH RTQ4H PRN PRN Reason: Wheezing Last Admin: 03/27/19 07:20 Dose: 2.5 mg Albuterol/Ipratropium (Duoneb) 3 ml INH Q4HR PRN PRN Reason: Wheezing Last Admin: 03/26/19 07:21 Dose: 3 ml Azithromycin (Zithromax) 500 mg PO DAILY [facility] Last Admin: 03/27/19 08:07 Dose: 500 mg Docusate Sodium (Colace 250mg Capsule) 250 - 500 mg PO DAILY [facility] Last Admin: 03/27/19 08:05 Dose: 250 mg Enoxaparin Sodium (Lovenox) 40 mg SUBQ BID [facility] Last Admin: 03/27/19 08:08 Dose: 40 mg Fluconazole (Diflucan) 100 mg PO DAILY [facility] Last Admin: 03/27/19 08:06 Dose: 100 mg Furosemide (Lasix) 20 mg PO DAILY [facility] Last Admin: 03/27/19 08:05 Dose: 20 mg Hydralazine HCl (Apresoline Inj) 10 mg IVP Q2H PRN PRN Reason: Hypertensive Emergency Ceftriaxone Sodium 2 gm/ (Sodium Chloride) 100 mls @ 200 mls/hr IV DAILY [facility] Last Infusion: 03/27/19 09:01 Dose: Infused Insulin Aspart (Novolog) 1 - 9 unit SUBQ 0800,1200,1700,2100 [facility]; Protocol Last Admin: 03/27/19 11:53 Dose: 3 unit Insulin Glargine (Lantus Solostar) 5 unit SUBQ QPM [facility] Last Admin: 03/26/19 20:32 Dose: 5 unit Lidocaine HCl (Xylocaine Uro-Jet 2%) 2.5 ml UR Q6H PRN PRN Reason: PAIN Last Admin: 03/20/19 19:02 Dose: 2.5 ml Metoprolol Succinate (Toprol Xl) 50 mg PO BIDWM [facility] Last Admin: 03/27/19 08:07 Dose: 50 mg Mineral Oil (Cavilon) 1 applic TOP PRN PRN PRN Reason: Skin Care Last Admin: 03/25/19 20:28 Dose: 1 applic Nystatin (Nystop) 1 applic TOP BID [facility] Last Admin: 03/27/19 12:50 Dose: Not Given Ondansetron HCl (Zofran Inj) 4 mg IVP Q6HR PRN PRN Reason: Nausea / Vomiting Last Admin: 03/26/19 11:03 Dose: 4 mg Pantoprazole Sodium (Protonix) 40 mg PO QDAC [facility] Last Admin: 03/27/19 06:21 Dose: 40 mg Polyethylene Glycol (Miralax) 17 gm PO DAILY [facility] Last Admin: 03/27/19 08:08 Dose: Not Given Saccharomyces Boulardii (Florastor) 250 mg PO BIDWM [facility] Last Admin: 03/27/19 08:05 Dose: 250 mg Senna (Senokot) 8.6 - 17.2 mg PO DAILY [facility] Last Admin: 03/27/19 08:06 Dose: 8.6 mg Sodium Chloride (Normal Saline Flush 0.9%) 10 ml IVP PRN PRN PRN Reason: NEEDED PER PROVIDER ORDERS Last Admin: 03/24/19 10:56 Dose: 10 ml Sodium Chloride (Normal Saline Flush 0.9%) 10 ml IVP 0100,0900,1700 [facility] Last Admin: 03/27/19 08:12 Dose: 10 ml Tamsulosin HCl (Flomax) 0.4 mg PO DAILY@1730 [facility] Last Admin: 03/26/19 17:08 Dose: 0.4 mg Temazepam (Restoril) 15 mg PO QPM PRN PRN Reason: Insomnia Objective - Vital Signs/Intake & Output Reviewed Vital Signs: Yes Vital Signs: Vital Signs x48h Temp Pulse Resp BP Pulse Ox 03/27/19 08:00 36.4 C L 79 18 142/71 H 98 Intake & Output: Intake & Output 03/24/19 03/25/19 03/26/19 03/27/19 23:59 23:59 23:59 23:59 Intake Total 1740 1730 1520 1810 Output Total 3625 2850 3425 3200 Balance -1885 -1120 -1905 -1390 - Objective General Appearance: positive: No acute distress, Alert. negative: Lethargic Eyes Bilateral: positive: Normal inspection, PERRL, No lid inflammation, Co njunctivae nml ENT: positive: ENT inspection nml, Pharynx nml, No signs of dehydration. negative: Purulent nasal drainage, Pharyngeal erythema, Oral lesions Neck: positive: Nml inspection, Thyroid nml, No JVD, Trachea midline. negative: Thyromegaly, Lymphadenopathy (R), Lymphadenopathy (L), Stiff neck, Swelling/bruising, Tracheal deviation Respiratory: positive: Chest non-tender, No respiratory distress, Breath sounds nml. negative: Wheezes, Rales, Rhonchi Cardiovascular: positive: Regular rate & rhythm, No murmur, No gallop. negative: Irregularly irregular, Extrasystoles, Tachycardia, Bradycardia, JVD present, Systolic murmur, Diastolic murmur Peripheral Pulses: 2+ Radial (R), 2+ Radial (L) Abdomen: positive: Non-tender, No organomegaly, Nml bowel sounds. negative: Tenderness, Guarding, Rebound Back: positive: Nml inspection. negative: CVA tenderness (R), CVA tenderness (L) Skin: positive: Warm, Dry. negative: Cyanosis, Diaphoresis, Pallor Extremities: positive: Non-tender. negative: Calf tenderness, Daniel's sign/cords Neurologic/Psychiatric: positive: Oriented x3, Mood/affect nml. negative: Weakness, Sensory loss, Facial droop, Slurred/abnml speech, Depressed mood/affect - Lab Results Fish Bones: 03/27/19 05:10 03/27/19 05:10 Other Labs: Lab Results x24hrs 03/27/19 03/27/19 03/27/19 Range/Units 11:51 07:14 05:10 WBC (4.8-10.8) x10^3/uL RBC (4.70-6.10) 10^6/uL Hgb (14.0-18.0) g/dL Hct (42.0-52.0) % MCV (80.0-94.0) fL MCH (27.0-31.0) pg MCHC (32.0-36.0) g/dL RDW (12.0-15.0) % Plt Count (130-450) 10^3/uL MPV (7.4-11.4) fL Neut # (Auto) (1.5-6.6) 10^3/uL Lymph # (Auto) (1.5-3.5) 10^3/uL Crenshaw # (Auto) (0.0-1.0) 10^3/uL Eos # (Auto) (0.0-0.7) 10^3/uL Baso # (Auto) (0.0-0.1) 10^3/uL Absolute Nucleated RBC x10^3/uL Nucleated RBC % /100WBC Sodium 137 (135-145) mmol/L Potassium 4.3 (3.5-5.0) mmol/L Chloride 96 L (101-111) mmol/L Carbon Dioxide 32 (21-32) mmol/L Anion Gap 9.0 (6-13) BUN 16 (6-20) mg/dL Creatinine 1.1 (0.6-1.2) mg/dL Estimated GFR (MDRD) 65 L (>89) Glucose 123 H (70-100) mg/dL POC Whole Bld Glucose 184 H 125 H (70 - 100) mg/dL Calcium 9.1 (8.5-10.3) mg/dL 03/27/19 03/26/19 03/26/19 Range/Units 05:10 20:28 16:44 WBC 7.7 (4.8-10.8) x10^3/uL RBC 4.01 L (4.70-6.10) 10^6/uL Hgb 12.2 L (14.0-18.0) g/dL Hct 36.2 L (42.0-52.0) % MCV 90.4 (80.0-94.0) fL MCH 30.5 (27.0-31.0) pg MCHC 33.8 (32.0-36.0) g/dL RDW 16.5 H (12.0-15.0) % Plt Count 169 (130-450) 10^3/uL MPV 6.1 L (7.4-11.4) fL Neut # (Auto) 5.1 (1.5-6.6) 10^3/uL Lymph # (Auto) 1.4 L (1.5-3.5) 10^3/uL Crenshaw # (Auto) 1.0 (0.0-1.0) 10^3/uL Eos # (Auto) 0.2 (0.0-0.7) 10^3/uL Baso # (Auto) 0.0 (0.0-0.1) 10^3/uL Absolute Nucleated RBC 0.01 x10^3/uL Nucleated RBC % 0.2 /100WBC Sodium (135-145) mmol/L Potassium (3.5-5.0) mmol/L Chloride (101-111) mmol/L Carbon Dioxide (21-32) mmol/L Anion Gap (6-13) BUN (6-20) mg/dL Creatinine (0.6-1.2) mg/dL Estimated GFR (MDRD) (>89) Glucose (70-100) mg/dL POC Whole Bld Glucose 144 H 179 H (70 - 100) mg/dL Calcium (8.5-10.3) mg/dL ABX Reporting Has patient been on IV antibiotics over the past 48 hours?: Yes Sepsis Event Note (H) - Evaluation Current Stage of Sepsis: Ruled out - Sepsis Criteria Sepsis Criteria: WBC count greater than 12,000 or less than 4000, Renal: urine output less than 0.5ml/kg/hr for 2 hours or creatinine gr Assessment/Plan - Problem List (1) UTI (urinary tract infection) Impression: 03/27 stable, today is 7th day after treated with IV of antibiotic for UTI, will hold IV of antibiotics on tomorrow 03/26 continue treat with antibiotics, this day 6 treat with antibiotics 03/25 day 5 treat for UTI, continue Rocephin and Probiotics 03/24 will continue to treat his UTI for 7-10 days, this is day 4 for treatment 03/23 continue treat UTI, this is day 3 for treatment of UTI continue Rocephin UA reveal positive for beta hemolytic strep B. WBC is reduced to 9.3 today continue antibiotics IV of Rocephin will d/c Baez cath, pt report he had no Baez at home, no issue for urination pt is clinic stable for d/c (2) NANNETTE (acute kidney injury) 03/27 stable, continue hydration and lab monitor 03/26 continue stable/improved. GFR is 65, continue keep hydration and lab monitor 03/25 stable, continue keep hydration and lab monitor 03/24 creatinine is slight improved, as his baseline continue keep hydration, and lab monitor 03/23 stable, continue lab monitor improved, creatinine form 2 at admission to 1.3 today, but precaution of fluid overload continue gently IVF of NC continue lab monitor (3) Fall 03/27 continue PT/OT when pt is on hospital 03/26 continue PT/OT, encourage Pt safely ambulate with nurse and PT/OT 03/25 continue PT/OT 03/24 continue PT/OT 01/21 continue PT/OT pt is recommended by PT/OT for SNF and pt is unsafe to be d/c to home pt had fall at home, consult with PT/OT, plan to d/c to SNF discussed with pt about loss of his weight (4) diabetes mellitus 03/27 good controlled glucose level. pt's A1C is 6.7, continue slide scale 03/24 good controlled glucose level, continue slide scale, ACHS, hypoglycemia protocol 03/23 good controlled glucose level, continue slide scale pt did not take his DM meds at home for a while, A1C is 6.7 continue slide scale, ACHS continue hypoglycemia (5) Right ankle sprain Impression: 03/24 stable, no complaint. continue nurse support and care there is soft tissue swelling noted around the right ankle, low calf continue PT/OT fall precaution (6) Essential hypertension 03/24 stable, continue clinic management, and vital monitor Continue to monitor blood pressure, IV hydralazine as needed (7) Morbid obesity with BMI of 40.0-44.9, adult Impression: Current BMI of 43.1, discussed with pt about loss of weight (8) lymphedema Impression: 03/24 stable, as his baseline, no complaint at this time continue support and nurse care 03/23 pt refused to complete US of bilateral lower extremities to r/o DVT. the swelling is reduced and erythema also reduced. will check D-dimer but more likely ther is no DVT at his lower extremities pt report he had worsening of his bilateral edema and swelling. In the examination, pt had terminal superintendent of lymphedema, with erythema at bilateral calf pt's lower extremities's skin is intact, continue wound consult, will followup order US of leg to r/o DVT rise of legs encourage ambulation (9) Medical non-compliance pt admitted he did not take his medications for quite long time consult for medical compliance, and Encourage pt for medical compliance (10) acute urinary retention 03/26 stable, continue to have Baez and Baez care 03/25 stable, continue Baez and nurse Baez care 03/24 pt can not urinate by his own. US of retroperitoneal are unremarkable. pt has hx of DM2, it is likely caused by DM2 complication continue Baez and Baez care per nurse, I&O advise pt followup urologist for further management. nurse report pt has no urine over 8 hours, bladder scan is unremarkable. order ST of US of retroperitoneal, will followup, order IVF now continue lab monitor and vital monitor (11) pneumonia 03/27 improved and stable, 98% sats on 2 lite of O2, continue antibiotics to finish the treatment course 03/26 improved. today pt has 94% on 1 liter of O2, WBC is normal, and no fever, cough is controlled. continue antibiotics Azithromycin and Rocephin encourage ambulate continue breath treatment as needed continue supplement O2 as needed pt had decrease of O2 sat to 92%, and present some SOB CXR reveals left mild basilar infiltrate with Tiny effusion add Azithromycin to Rocephin low dosage of Lasix albuterol and Duoneb PRN vital and lab monitor (12)respiratory distress with hypoxia improved and stable, 98% sats on 2 lite of O2 without SOB continue albuterol and Duoneb PRN continue supplement with O2 as needed. pt may need O2 for d/c (13) sleep apnea with CPAP hx of sleep apnea on CPAP, continue home CPAP, advise pt followup his shipping room helper for evaluation of his current CPAP and sleep study, pt state he understand and will followup (4) Fall Qualifiers: Encounter type: subsequent encounter Qualified Code(s): W19.XXXD - Unspecified fall, subsequent encounter (6) Right ankle sprain Qualifiers: Encounter type: initial encounter Involved ligament of ankle: unspecified ligament Qualified Code(s): S93.401A - Sprain of unspecified ligament of right ankle, initial encounter (8) Diabetes Qualifiers: Diabetes mellitus type: type 2 Diabetes mellitus halfway insulin use: without halfway use Diabetes mellitus complication status: with unspecified complications Qualified Code(s): E11.8 - Type 2 diabetes mellitus with unspecified complications
[2019-03-27] MEDS: TAMSULOSIN 0.4 MG CAPSULE PO SCH (17:19)
[2019-03-27] MEDS ORDERED: ONDANSETRON ODT 4 MG TABLET TL PRN (20:24)
[2019-03-27] MEDS: INSULIN GLARGINE 300 UNIT/3 ML PEN SUBQ SCH (20:43)
[2019-03-28] MEDS: PANTOPRAZOLE 40 MG TABLET PO SCH (06:28)
[2019-03-28] MEDS: HYDROcod/ACETAM 5/325 MG TABLET PO PRN ×2 (06:43→14:00)
[2019-03-28 08:16] LABS: BASOPHILS % (AUTO) 0.6 %; EOSINOPHILS # (AUTO) 0.1 10^3/uL (0.0-0.7); EOSINOPHILS % (AUTO) 2.2 %; HGB - HEMOGLOBIN 12.2 g/dL (14.0-18.0); LYMPHOCYTES # (AUTO) 1.1 10^3/uL (1.5-3.5); LYMPHOCYTES % (AUTO) 16.5 %; MEAN CORPUSCULAR HEMOGLOBIN 30.3 pg (27.0-31.0); MEAN CORPUSCULAR VOLUME 89.1 fL (80.0-94.0); MEAN PLATELET VOLUME 5.9 fL (7.4-11.4); MONOCYTES # (AUTO) 0.7 10^3/uL (0.0-1.0); MONOCYTES % (AUTO) 11.2 %; NEUTROPHILS # (AUTO) 4.6 10^3/uL (1.5-6.6); NEUTROPHILS % (AUTO) 69.5 %; PLT - PLATELET COUNT 187 10^3/uL (130-450); RED BLOOD COUNT 4.04 10^6/uL (4.70-6.10); RED CELL DISTRIBUTION WIDTH 16.6 % (12.0-15.0); WHITE BLOOD COUNT 6.6 x10^3/uL (4.8-10.8)
[2019-03-28 08:17] LABS: CALCIUM 9.3 mg/dL (8.5-10.3)
[2019-03-28] MEDS: SACCHAROMYCES BOULARDII 250 MG CAPSULE PO SCH ×2 (08:27→17:06)
[2019-03-28] MEDS: AZITHROMYCIN 250 MG TABLET PO SCH (08:27)
[2019-03-28] MEDS: FUROSEMIDE 20 MG TABLET PO SCH (08:28)
[2019-03-28] MEDS: cephALEXin 250 MG CAPSULE PO SCH ×2 (08:28→12:49)
[2019-03-28] MEDS: SENNA 8.6 MG TABLET PO SCH (08:29)
[2019-03-28] MEDS: FLUCONAZOLE 100 MG TABLET PO SCH (08:29)
[2019-03-28] MEDS: METOPROLOL SUCCINATE 50 MG TABLET PO SCH ×2 (08:29→17:06)
[2019-03-28] MEDS: DOCUSATE SODIUM 250 MG CAPSULE PO SCH (08:29)
[2019-03-28] MEDS: ENOXAPARIN 40 MG/0.4 ML SYRINGE SUBQ SCH (08:30)
[2019-03-28] MEDS: INSULIN ASPART 300 UNIT/3 ML PEN SUBQ SCH ×3 (08:33→17:05)
[2019-03-28] MEDS: POLYETHYLENE GLYCOL 3350 17 GM PACKET PO SCH (08:34)
[2019-03-28] MEDS: NYSTATIN POWDER 15 GM TOP SCH (08:34)
[2019-03-28 08:35] LABS: RBC MORPHOLOGY (MULTIPLE) 2+ ANISOCYTOSIS (NORMAL)
[2019-03-28] MEDS: TAMSULOSIN 0.4 MG CAPSULE PO SCH (17:07)
[2019-03-28 18:48] VITALS: BP 140/72
== END 2019-03-28 18:55 | DRG 689 ==
LOC: EDUNIT# → ED 09:16 → MS2 16:33
PROVIDERS: ADMIT Nurse Practitioner; ATTEND Nurse Practitioner Gerontology
DX: N30.00 Acute cystitis without hematuria (principal); N12 Tubulo-interstitial nephritis, not specified as acute or chronic; J18.9 Pneumonia, unspecified organism; E11.8 Type 2 diabetes mellitus with unspecified complications; I10 Essential (primary) hypertension; Z68.41 Body mass index [BMI] 40.0-44.9, adult; I16.1 Hypertensive emergency; J44.0 Chronic obstructive pulmonary disease with (acute) lower respiratory infection; N17.9 Acute kidney failure, unspecified; E11.65 Type 2 diabetes mellitus with hyperglycemia; E86.0 Dehydration; E78.00 Pure hypercholesterolemia, unspecified; R33.9 Retention of urine, unspecified; E66.01 Morbid (severe) obesity due to excess calories; B95.1 Streptococcus, group B, as the cause of diseases classified elsewhere; S93.401A Sprain of unspecified ligament of right ankle, initial encounter; W18.11XA Fall from or off toilet without subsequent striking against object, initial encounter; Y93.E8 Activity, other personal hygiene; Z91.14 Patient's other noncompliance with medication regimen; Y92.002 Bathroom of unspecified non-institutional (private) residence as the place of occurrence of the external cause; Y95 Nosocomial condition; R06.03 Acute respiratory distress; R09.02 Hypoxemia; I89.0 Lymphedema, not elsewhere classified; G47.30 Sleep apnea, unspecified; F03.90 Unspecified dementia, unspecified severity, without behavioral disturbance, psychotic disturbance, mood disturbance, and anxiety; G25.2 Other specified forms of tremor; E78.5 Hyperlipidemia, unspecified; K21.9 Gastro-esophageal reflux disease without esophagitis; N40.1 Benign prostatic hyperplasia with lower urinary tract symptoms; R35.0 Frequency of micturition; R32 Unspecified urinary incontinence; R35.1 Nocturia; N28.9 Disorder of kidney and ureter, unspecified; F32.9 Major depressive disorder, single episode, unspecified; F41.0 Panic disorder [episodic paroxysmal anxiety]; H54.7 Unspecified visual loss; H91.90 Unspecified hearing loss, unspecified ear; G89.29 Other chronic pain; M54.9 Dorsalgia, unspecified; R26.89 Other abnormalities of gait and mobility; R53.83 Other fatigue; M19.90 Unspecified osteoarthritis, unspecified site; I73.9 Peripheral vascular disease, unspecified; Z91.81 History of falling; Z91.128 Patient's intentional underdosing of medication regimen for other reason; Z87.01 Personal history of pneumonia (recurrent); Z87.891 Personal history of nicotine dependence; Z87.442 Personal history of urinary calculi; Z85.828 Personal history of other malignant neoplasm of skin
CPT/HCPCS: 36415; 51701; 71045; 73610; 73630; 76770; 80048; 80053; 81001; 83036; 83605; 83690; 83735; 83880; 84100; 84443; 84484; 85025; 85379; 86140; 87086; 93005; 93306; 93970; 94640; 96361; 96374; 97110; 97161; 97166; 97530; 97535; 99284; 99285; A6250; A9270; J1650; J1815; Q0162; 80306; 81003